=== PATIENT | female | born 1950 | race Caucasian/White ===

== ENCOUNTER 2019-04-09 13:54 | Emergency (ER) | payer OTHER ==
[~2019-04-09] VITALS: Ht 144.8 cm; Wt 77.1 kg
[2019-04-09 14:49] VITALS: BP 144/98
[2019-04-10] MEDS ORDERED: OXYBUTYNIN 5 MG5 M2 PO (16:03)
[2019-04-10] MEDS ORDERED: NYAMYC15 GM TOP (16:03)
[2019-04-10] MEDS ORDERED: NOVOLOG FL100 UNIT/M SUBQ (16:04)
[2019-04-10] MEDS ORDERED: LEVEMIR FL100 UNIT/2 SUBQ (16:04)
[2019-04-10] MEDS ORDERED: METOPROLOL TART25 MG PO (16:04)
[2019-04-10] MEDS ORDERED: FUROSEMIDE 40 M40 MG PO (16:05)
[2019-04-10] MEDS ORDERED: PEN NEEDLE1 EAC4 MC (16:05)
[2019-04-10] MEDS ORDERED: LIPITOR 40 MG T40 M1 PO (16:05)
[2019-04-10] MEDS ORDERED: NEURONTIN 300300 M1 PO (16:05)
[2019-04-10] MEDS ORDERED: GLIMEPIRIDE4 MG PO (16:05)
== END 2019-04-09 15:13 | disposition home or self-care (01) ==
LOC: ER 13:54
DX: E16.2 Hypoglycemia, unspecified (principal)

== ENCOUNTER 2019-04-10 13:20 | Inpatient (IN) | payer OTHER ==
[~2019-04-10] VITALS: Ht 147.3 cm; Wt 93.0 kg
[2019-04-10 13:33] VITALS: BP 202/68
[2019-04-10 14:18] LABS: ABSOLUTE NEUTROPHILS 2.8 thou/uL (1.4-8.2); BASOPHILS 1.4 % (0.0-2.0); EOSINOPHILS 0.1 % (0.0-3.0); HEMATOCRIT 47.6 % (37.0-47.0); HEMOGLOBIN 15.5 gm/dL (12.0-15.0); LYMPHOCYTES 19.6 % (24.0-44.0); MCH 27.5 pg (26.0-34.0); MCHC 32.5 g/dL (28.0-37.0); MCV 84.7 fL (80.0-100.0); MONOCYTES 9.8 % (1.0-8.0); PLATELET COUNT 238 thou/uL (150-400); POLYS 69.1 % (36.0-66.0); RBC 5.62 mil/uL (4.20-5.00); RDW 15.8 % (10.5-14.5)
[2019-04-10 14:29] LABS: ANION GAP 7 mmol/L (7-16); BUN 20 mg/dL (7-18); CALCIUM 8.3 mg/dL (8.5-10.1); CHLORIDE 103 mmol/L (98-107); CO2 28 mmol/L (21-32); CREATININE 0.7 mg/dL (0.6-1.0); GLUCOSE 94 mg/dL (74-106); POTASSIUM 3.7 mmol/L (3.5-5.1); SODIUM 138 mmol/L (136-145)
[2019-04-10 14:35] LABS: ALBUMIN 2.5 g/dL (3.4-5.0); DIRECT BILIRUBIN < 0.1 mg/dL (<0.1-0.2); SGOT 42 U/L (15-37); SGPT 24 U/L (30-65); TOTAL BILIRUBIN 0.7 mg/dL (<0.1-1.0); TOTAL PROTEIN 7.4 g/dL (6.4-8.2)
[2019-04-10] MEDS ORDERED: NYAMYC15 GM TOP (16:03)
[2019-04-10] MEDS ORDERED: OXYBUTYNIN 5 MG5 M2 PO (16:03)
[2019-04-10] MEDS ORDERED: LEVEMIR FL100 UNIT/2 SUBQ (16:04)
[2019-04-10] MEDS ORDERED: METOPROLOL TART25 MG PO (16:04)
[2019-04-10] MEDS ORDERED: NOVOLOG FL100 UNIT/M SUBQ (16:04)
[2019-04-10] MEDS ORDERED: NEURONTIN 300300 M1 PO (16:05)
[2019-04-10] MEDS ORDERED: PEN NEEDLE1 EAC4 MC (16:05)
[2019-04-10] MEDS ORDERED: LIPITOR 40 MG T40 M1 PO (16:05)
[2019-04-10] MEDS ORDERED: FUROSEMIDE 40 M40 MG PO (16:05)
[2019-04-10] MEDS ORDERED: GLIMEPIRIDE4 MG PO (16:05)
[2019-04-10 17:28] VITALS: BP 198/99
[2019-04-10 18:16] VITALS: BP 160/72
--- NOTE | 2019-04-10 19:00 | NUR ---
PATIENT ADMITTED FROM ER WITH HYPOGLYCEMIA FROM HOME. PATIENT IS TOTALLY BLIND. ASSIST X 1 TO THE BR. VITAL SIGNS DONE, BOX LUNCH MEAL GIVEN UPON ARRIVAL TO THE UNIT 1825. ADMISSION WILL BE DONE BY MIKE/RN.
[2019-04-10 19:33] VITALS: BP 165/78
--- NOTE | 2019-04-10 23:48 | NUR ---
ASSUMED CARE OF PT AT 1900HRS. PT IS AOX4 AND LETS NEEDS BE KNOWN. PT IS BLIND AND FALL PRECAUTION IS IN PLACE. PT WAS ORIENTED TO THE UNIT AND HER ROOM. PT WAS ABLE TO ANSWER ADMISSION RELATED QUESTIONS. PT IS ABLE TO GET UP AND USE THE BATHROOM WITH ONE ASSIST. PT HAD ELEVATED BP BUT OTHERWISE VSS. WILL CONTINUE TO [facility].
[2019-04-11 06:09] LABS: GLYCOHEMOGLOBIN (HGB A1C) 8.3 % (4.8-5.6)
[2019-04-11 07:16] VITALS: BP 142/77
--- NOTE | 2019-04-11 07:26 | NUR ---
PATIENT ADMITTED FROM ER WITH HYPOGLYCLEMIA FORM HME. PATIENT IS BLIND, AND NEEDS ASSIST X 1. PATIENT HAS RIGHT HAND IV. PATIENT VS DONE, AND GIVEN BOX LUNCH MEAL WHEN SHE ARRIVED ON THE UNIT AT 1825. ADMISSION WILL BE DONE BY MIKE/RN.
[2019-04-11 15:38] VITALS: BP 116/55
--- NOTE | 2019-04-11 19:32 | NUR ---
ASSUMED CARE OF PATIENT AT 0715, PATIENT ALERT AND ORIENTED, UP WITH 1 ASSIST TO BATHROOM, PATIENT IS BLIND. PATIENT C/O GENERALIZED PAIN, TYLENOL 650 MG PO GIVEN. PATIENT HAS RIGHT HAND IV, FLUSHED WITH NS AT REMAINS PATENT. DR IVEY STARTED PATIENT ON METFORMIN TO HELP CONTROL BLOOD SUGARS, LAST BS 175, SHE RECEIVED 3 UNITS. PATIENT HAS HAD 3 LOOSE STOOLS, THIS RN PLACED CALL TO DR IVEY, NO RETURN CALL, PATIENT DOES WEARS BRIEFS. WILL CONTINUE TO MONITOR.
[2019-04-11 20:00] VITALS: BP 128/68
--- NOTE | 2019-04-12 02:35 | NUR ---
PATIENT ALERT AND ORIENTED X4. UP TO BATHROOM WITH ONE ASSIST. DENIES PAIN. NO 02NC AT THIS TIME. SITTING IN CHAIR AT SHIFT CHANGE. COOPERATIVE WITH CARE. EDEMA TO BILATERAL LOWER LEGS WITH SOME REDNESS. ONE STOOL NOTED LOOSE AND MEDIUM. BLOOD SUGAR AT 2100 WAS 58. GIVEN APPLE JUICE X2 AND RECHECKED, BS UP TO 103. METFORMIN HELD. PATIENT IS BLIND SHE NEEDS SPECIFIC DIRECTIONS AND DOES WELL WITH TRANSFER. DIFFICULTY SLEEPING TONIGHT, UP AND DOWN. RESTING AT TIME OF NOTE WILL MONITOR.
[2019-04-12 07:27] VITALS: BP 134/51
[2019-04-12] MEDS ORDERED: GLUCOPHAGE500 MG PO (09:08)
[2019-04-12] MEDS ORDERED: COZAAR 50 MG TA50 M1 PO (09:08)
--- NOTE | 2019-04-12 18:37 | NUR ---
ASSUMED PATIENT CARE AT 0700. PATIENT IS AOX4 AND UP WITH 1 ASSIST WITHOUT ANY ISSUES. PATIENT DENIES PAIN. PATIENT WAS UP TO THE [facility] WHEN NEEDED BUT DID HAVE ONE ACCIDENT WITH HER BM. PATIENT TOOK A SHOWER AND IS READY FOR D/C. PATIENT IS WAITING FOR HER RIDE TO GET HERE. PATIENT DIDN'T HAVE MUCH OF AN APPETITE FOR LUNCH OR DINNER BUT DID EAT SMALL SNACKS DURING BOTH. FALL PRECAUTIONS ARE IN PLACE, CALL LIGHT WITHIN REACH. PATIENT IS GOOD ABOUT CALLING FOR HELP WHEN NEEDED.
--- NOTE | 2019-04-12 19:52 | NUR ---
PATIENT WAS D/C WITH HER NURSE LAKESHA DONATO. DR. IVEY VOICED TO THE PATIENT WITH THIS NURSE PRESENT THAT SHE COULD IN FACT GO HOME TODAY WITH HER NEW RX. D/C INSTRUCTIONS HAVE BEEN EXPLAINED TO THE HH NURSE AND THE PATIENT. LAKESHA DONATO WITH [employer] AT [phone].
--- NOTE | 2019-04-12 19:57 | NUR ---
I AGREE WITH ASSESSMENT OF MERRILL GRIFFITH LPN.
== END 2019-04-12 19:58 | disposition home health service (06) | DRG 918 ==
LOC: ER 13:20 → EROBS 15:56 → 4N 18:20
PROVIDERS: Emergency Medicine; ADMIT Hospitalist
DX: T38.3X1A Poisoning by insulin and oral hypoglycemic [antidiabetic] drugs, accidental (unintentional), initial encounter (principal); E11.649 Type 2 diabetes mellitus with hypoglycemia without coma; G89.29 Other chronic pain; M54.9 Dorsalgia, unspecified; F17.210 Nicotine dependence, cigarettes, uncomplicated; I10 Essential (primary) hypertension; L68.0 Hirsutism; Y92.89 Other specified places as the place of occurrence of the external cause; Z79.899 Other long term (current) drug therapy; Z79.4 Long term (current) use of insulin; Z88.6 Allergy status to analgesic agent; Z79.84 Long term (current) use of oral hypoglycemic drugs
CPT/HCPCS: 10091

== ENCOUNTER 2019-07-04 13:04 | Inpatient (IN) | payer OTHER ==
[~2019-07-04] VITALS: Ht 144.8 cm; Wt 79.7 kg
--- NOTE | ~2019-07-04 | EMS ---
[address] [address] EMS Patient Care Report Name: ELTON PAGAN Room #: 205-P ADM IN M.R.#: [id number] Admission: 07/04/19 Attend Phys: Edmundo Medrano MD Discharge: Date of : 51 Report #: [id number] THIS REPORT FOR: //name// Report Transmitted: 07/06/2019 12:58 EMS Care Summary [place], [place]/[facility] Incident [id number] @ 07/04/2019 12:23 Incident Location [address] Patient ELTON PAGAN Female, 68 Years 1950 Patient Address [address] [place] [address] Patient History Chronic Obstructive Pulmonary Disease (COPD),Diabetes,Hypertension (HTN), Patient Allergies Aspirin, Patient Medications Insulin, Chief Complaint MULTIPLE FALLS, TREMORS Disposition Transported No Lights/[place] Dispatch Reason Falls Transported To [facility] Narrative UPON ARRIVAL PT SUPINE ON THE GROUND CONSCIOUS AND ALERT. FRIEND STATES PT HAD FALLEN MULTIPLE TIMES IN THE PAST HOUR AND HAS TROUBLE SITTING UP STRAIGHT. PT DENIES ANY INJURIES FROM FALLS. PT HAS ALSO BEEN HAVING TREMORS IN THE [address] [address] EMS Patient Care Report Name: ELTON PAGAN Room #: 205-P ADM IN [place].#: [id number] Admission: 07/04/19 Attend Phys: Edmundo Medrano MD Discharge: Date of : 51 Report #: [id number] EXTREMITIES WHICH IS ABNORMAL. PT TRANSPORTED TO [facility]. Initial Vitals @12:55P: 111,BP: 102/62,CO: 2,SpO2: 88, @12:48P: 110,CO: 6,SpO2: 89, @12:37P: 144,R: 24,BP: 108/66,Pain: 0/10,GCS: 15,Glucose: 202,SpO2: 90,Revised Trauma: 12, Assessments @12:35MENTAL:Person Oriented,Time Oriented,Event Oriented,Place Oriented,SKIN:HEENT:Eyes: Left: Blind,Eyes: Right: Blind,Head/Face: No Abnormalities,LUNG SOUNDS:General: No Abnormalities,ABDOMEN:General: No Abnormalities,PELVIS//GI:No Abnormalities,EXTREMITIES:Left Arm: No Abnormalities,Right Arm: No Abnormalities,Left Leg: No Abnormalities,Right Leg: No Abnormalities,PULSE:Radial: 2+ Normal,NEURO:No Abnormalities, Impression Generalized Weakness Procedures @12:35ALS AssessmentResponse: UnchangedSucceeded@12:453-Lead ECGResponse: UnchangedSucceeded Timeline 12:22,Call Received 12:22,Dispatch Notified 12:23,Dispatched 12:24,En Route 12:28,On Scene 12:32,At Patient 12:35,ALS Assessment,Response: UnchangedSucceeded, 12:37,BP: 108/66 M,PULSE: 144,RR: 24 R,SPO2: 90 Ox,ETCO2: ,B,PAIN: 0,GCS: 15, 12:45,3-Lead ECG,Response: UnchangedSucceeded, 12:48,BP: / M,PULSE: 110,RR: R,SPO2: 89 Ox,ETCO2: ,BG: ,PAIN: ,GCS: , 12:48,Depart Scene 12:55,BP: 102/62 M,PULSE: 111,RR: R,SPO2: 88 Ox,ETCO2: ,BG: ,PAIN: ,GCS: , 12:58,At Destination 13:15,Call Closed Disclaimer v1.1 Copyright 2020 [employer] This EMS Care Summary contains data elements from the applicable legal record (which may be displayed differently). It is designed to provide pertinent information for the following purposes: continuity of care, clinical quality, and state data reporting. The complete [place] [address] EMS Patient Care Report Name: ELTON PAGAN Room #: 205-P ADM IN ..#: [id number] Admission: 07/04/19 Attend Phys: Edmundo Medrano MD Discharge: Date of : 51 Report #: [id number] and administrators of the receiving hospital in [facility]'s Patient Tracker. All data is provided "as is."
[~2019-07-04 13:04] MED LIST: COZAAR 50 MG TA50 M1 PO; FUROSEMIDE 40 M40 MG PO; GLIMEPIRIDE4 MG PO; GLUCOPHAGE500 MG PO; LEVEMIR FL100 UNIT/2 SUBQ; LIPITOR 40 MG T40 M1 PO; METOPROLOL TART25 MG PO; NEURONTIN 300300 M1 PO; NOVOLOG FL100 UNIT/M SUBQ; NYAMYC15 GM TOP; OXYBUTYNIN 5 MG5 M2 PO; PEN NEEDLE1 EAC4 MC
[2019-07-04 13:05] VITALS: BP 144/79
[2019-07-04 13:45] LABS: ABSOLUTE NEUTROPHILS 5.4 thou/uL (1.4-8.2); BASOPHILS 0.2 % (0.0-2.0); EOSINOPHILS 0.6 % (0.0-3.0); HEMATOCRIT 48.7 % (37.0-47.0); HEMOGLOBIN 16.2 gm/dL (12.0-15.0); LYMPHOCYTES 4.5 % (24.0-44.0); MCH 28.7 pg (26.0-34.0); MCHC 33.3 g/dL (28.0-37.0); MCV 86.4 fL (80.0-100.0); MONOCYTES 7.2 % (1.0-8.0); PLATELET COUNT 180 thou/uL (150-400); POLYS 87.5 % (36.0-66.0); RBC 5.64 mil/uL (4.20-5.00); RDW 16.9 % (10.5-14.5); WBC 6.2 thou/uL (4.0-11.0)
[2019-07-04 13:54] LABS: CALCIUM 8.6 mg/dL (8.5-10.1); CREATININE 1.3 mg/dL (0.6-1.0); POTASSIUM 3.8 mmol/L (3.5-5.1)
[2019-07-04 14:04] LABS: ALBUMIN 3.2 g/dL (3.4-5.0); TOTAL BILIRUBIN 1.2 mg/dL (<0.1-1.0); TOTAL PROTEIN 8.2 g/dL (6.4-8.2)
[2019-07-04 14:06] LABS: TROPONIN-I 3.09 ng/mL (<0.06)
[2019-07-04 14:55] LABS: URINE BILIRUBIN 1+ (Negative); URINE BLOOD 3+ (Negative); URINE CLARITY CLEAR; URINE COLOR YELLOW; URINE GLUCOSE-RANDOM* TRACE (Negative); URINE KETONES NEGATIVE (Negative); URINE LEUKOCYTES-REFLEX NEGATIVE (Negative); URINE NITRITE-REFLEX NEGATIVE (Negative); URINE PROTEIN (DIPSTICK) 3+ (Negative); URINE SPECIFIC GRAVITY >= 1.030 (1.005-1.035); URINE UROBILINOGEN 0.2 E.U./dl (0.2-1.0)
[2019-07-04 14:57] LABS: ICTOTEST (BILI CONFIRMATORY) Positive (Negative)
[2019-07-04 15:05] LABS: AMORPHOUS URATES Moderate /LPF (None Seen); SQUAMOUS 4-10 Moderate /LPF (0-3)
[2019-07-04 15:22] LABS: BACTERIA-REFLEX 1-9 Few /HPF (None Seen); HYALINE CASTS 0-3 Few /LPF (None Seen); URINE RBC 3-10 Few /HPF (0-2); URINE WBC-REFLEX 0-5 Rare /HPF (0-5)
[2019-07-04 15:46] VITALS: BP 134/62
[2019-07-04 16:04] VITALS: BP 134/62
[2019-07-04 17:06] VITALS: BP 144/75
--- NOTE | 2019-07-04 18:15 | NUR ---
PT ADMITTED TO [facility] AT 1700. PT ALERT AND ORIENTED X4, FORGETFUL. PT IS BLIND IN BOTH EYES, HARD OR HEARING. DENIES ANY CHEST PAIN, NAUSEA AND VOMITING. GENERAL ASSEMBLER SHOWS SINUS RHYTHM, HR IN 90'S. PT IS ON 2L OF NASAL CANNULA. COMPLAINS OF TOLERABLE SHOULDER PAIN. FOR HAS A CHAIREZ, URINE IS CORA COLOR AND CATHETER IS PATENT AND SECURED. PT GAVE A VERBAL CONSENT FOR FALL/CALL LIGHT PAPERWORK. PT DIDNT REMEMBER ALL THE MEDICATIONS SHE TAKES AND STATES HER HOMEHEALTH NURSE WOULD KNOW. THIS RN CALL LAKESHA FROM [facility], VERIFIED PT MEDICATIONS, PAST MEDICAL HISTORY AND ALLERGIES WITH LAKESHA. PT DENIES ANY NEEDS AT THE MOMENT. CALL LIGHT IN REACH. MED AT LOWEST LEVELK WITH ALARM ON.
[2019-07-04 19:50] VITALS: BP 115/60
--- NOTE | 2019-07-04 20:55 | NUR ---
Pt is alert to person and situation. Reoriented to place and time and date. Her pupils are opaque , white and nonvisible. She was unable to open her eyes herself without assistance of nurse. SR with PACs on the monitor. Lungs are unlabored sats 96% on 2LNC. Diminished at bases. Cellulitis noted LEs. No scds due to cellulitis. Moisture barrier applied to buttocks, No wounds noted. turning pt q 2 hrs. No s/s distress presently. No c/o pain.
--- NOTE | 2019-07-04 21:04 | NUR ---
Pt refused to sign admit consent and fall precautions due to she did not have her blind reader. Reinstructed on fall precautions. Bed alarm is on. Bed is in low locked position. Call light in reach, Checking on pt q 1 hr.
[2019-07-04 23:21] VITALS: BP 106/56
[2019-07-05 04:23] VITALS: BP 130/74
--- NOTE | 2019-07-05 06:41 | NUR ---
Pt progressing towards d/c goals. No c/o chest pain last night. No SOA. LEs continue to have 1+ edema and are red christ. with cellulitis. Lasix 40 mg iv pushed this am as ordered. No s/s distress. Pt seems more alert this am. Answers appropriately and is now opening her eyes just slightly spontaneously without nurses help. No s/s distress.
[2019-07-05 07:37] LABS: HEMATOCRIT 40.1 % (37.0-47.0); MCH 28.6 pg (26.0-34.0); MCHC 33.7 g/dL (28.0-37.0); MCV 85.1 fL (80.0-100.0); RBC 4.71 mil/uL (4.20-5.00); RDW 16.7 % (10.5-14.5); WBC 5.1 thou/uL (4.0-11.0)
[2019-07-05 07:49] LABS: HEMOGLOBIN 13.5 gm/dL (12.0-15.0)
[2019-07-05 07:54] LABS: CALCIUM 7.8 mg/dL (8.5-10.1); POTASSIUM 3.3 mmol/L (3.5-5.1)
[2019-07-05 07:58] LABS: TROPONIN-I 1.05 ng/mL (<0.06)
[2019-07-05 08:33] VITALS: BP 153/79
--- NOTE | 2019-07-05 10:19 | NUR ---
3W RN CALLED TO INFORM THAT THIS PT COVID-19 SWAB IS NEGATIVE. THIS RN SPOKE WITH SEFERINO SMITH ARCHITECT. REPORTED YESTERDAY CXR RESULTS, PT ON ROOM AIR (OFF OXYGEN SINCE BREAKFAST TIME), DENIES SOA AND FEVER NOTED YESTER DAY AT 1706 WHICH WAS 100.9 THEN 99.8 AT 1950. PT THEN NOTED TO BE AFREBRILE SINCE THAT TIME. PER SEFERINO SMITH, IF SECOND COVID-19 SWAB IS NEGATIVE PT CAN COME OUT OF ISOLATION. DR. ROMERO INFORMED ( HE IS SPEAKING WITH DR. ARCHULETA). DR. ROMERO WANTS PT MOVED TO CCU IF SECOND SWAB IS NEGATIVE. JESSY RN INFORMED TO REPEAT SWAB NOW PER SEFERINO.
[2019-07-05 12:13] VITALS: BP 136/83
--- NOTE | 2019-07-05 16:12 | NUR ---
PATIENT TRANSFERED AT THIS TIME TO . SHE IS [employer]. REMAINS ON ROOM AIR AND SATS ARE ABOVE 90%. ALERT ORIENTED X4. PLEASANT CARE. ORDERS TO LEAVE CHAIREZ FOR ACCURATE I&O.
--- NOTE | 2019-07-05 17:29 | NUR ---
PT. ARRIVED AT FLOOR AFTER 1600; PT. AWAKE; ALERT TO PERSON, PLACE & TIME; NO C/O PAIN; EDUCATED ABOUT CALL LIGHT CONTROLS; EDUCATED ABOUT CALLING BEFORE GETTING UP FROM BED; ST. UNDERSTANDING; SR ON THE MONITOR; REFUSED INSULIN AT DINNER TIME; ST. "I DO NOT WANT TO MESS UP ALL THE WORK THE DOCTORS HAVE DONE"; EDUCATED ABOUT IT; ST. UNDERSTANDING; REFUSED IT; PT. ABLE TO EAT DINNER AFTER SET IT UP; ASSESSMENT CHARGED; FOLLOWING POC; WILL PASS ON REPORT;
[2019-07-05 19:59] VITALS: BP 90/34
[2019-07-06] VITALS (8 sets, daily range): BP systolic 107–163; BP diastolic 55–91
--- NOTE | 2019-07-06 01:41 | NUR ---
PT LYING IN BED. DENIES PAIN. RESTING COMFORTABLY. NO NEED VOICED. CALL LIGHT WITHIN REACH. FREQUENT OBSERVATION.
[2019-07-06 04:44] LABS: CALCIUM 7.9 mg/dL (8.5-10.1); CREATININE 0.8 mg/dL (0.6-1.0)
[2019-07-06 07:47] LABS: CHOLESTEROL 94 mg/dL (<200); HDL CHOLESTEROL 29 mg/dL (>40); LDL CHOLESTEROL 36 mg/dL (<100); TC:HDL 3.2 Ratio (Not establshd); TRIGLYCERIDE 146 mg/dL (<150); VLDL 29 mg/dL (<40)
--- NOTE | 2019-07-06 08:01 | EKG ---
[facility] [place] [place] [address] ELECTROCARDIOGRAM REPORT Name: ELTON PAGAN Room #: 205-P ADM IN M.R.#: [id number] Admission: 07/04/19 Attend Phys: Edmundo Medrano MD Discharge: Date of : 51 Report #: [id number] THIS REPORT FOR: cc: PETER - No family physician/PCP FAM - No family physician/PCP Brian Stark MD [facility] ~ THIS REPORT FOR: //name// [facility] ED Test Date: 2019-07-04 Test Time: 13:49:34 Pat Name: ELTON PAGAN Department: Room: [facility][note 3] Gender: F Care Partner: [facility] : 1950 Requested By: Elana Lowry Order Number: [id number] MD: Brian Stark Measurements Intervals Dexter Rate: 103 P: -20 RI: 94 QRS: 80 QRSD: 79 T: -74 QT: 379 QTc: 496 Interpretive Statements Sinus tachycardia Atrial premature complexes Nonspecific ST and T wave abnormality Borderline prolonged QT interval Baseline wander in lead(s) V1,V3,V4,V5,V6 No previous ECG available for comparison Electronically Signed On 07-06-2019 7:59:25 CDT by Brian Stark [email or web address] <ELECTRONICALLY SIGNED> By: Brian Stark MD, FACC 07/06/19 0759 1349 1349 Brian Stark MD, FAC /EPI
--- NOTE | 2019-07-06 12:11 | NUR ---
spoke with patient via phone. Patient admits with fall at home and CHF. She resides in independent apt alone. She is blind and hx of smoking. She has [facility] caregivers 5 days a week M-F 3-4 hours a day. Caitlin Wynn [phone] is primary caregiver. Ms Wynn works for [employer]. She assists with laundry and grocery shopping. Patient uses cane for ambulation and elevator in building. She cannot at this time recall her PCP. Therapy evals in process. She does not want to go to skilled facility. she does not want to "move around" places. She is hopeful to dc home but agreeable to determine if 5N candidate.
--- NOTE | 2019-07-06 14:16 | 2DMMODE ---
[facility] [place] [address] [address] 2 D/M-MODE ECHOCARDIOGRAM Name: ELTON PAGAN Room #: 205-P ADM IN M.R.#: [id number] Admission: 07/04/19 Attend Phys: Edmundo Medrano MD Discharge: Date of : 51 Report #: [id number] THIS REPORT FOR: cc: PETER - No family physician/PCP PETER - No family physician/PCP Brian Stark MD [facility] ~ APPROVED REPORT Study performed: 07/06/2019 12:09:50 EXAM: Comprehensive 2D, Doppler, and color-flow Echocardiogram Patient Location: Bedside Room #: 205 Status: routine BSA: 1.67 HR: 82 bpm BP: 119/89 mmHg Other Information Study Quality: Adequate Indications Diabetes Elevated Troponin Hypertension/HDD 2D Dimensions RVDd: 40.07 mm IVSd: 8.97 (7-11mm) LVOT Diam: 17.73 (18-24mm) LVDd: 36.80 mm PWd: 7.79 (7-11mm) LVDs: 27.43 (25-40mm) Aortic Root: 26.30 mm IVC: 21.00 mm Volumes Left Atrial Volume (Systole) Single Plane 4CH: 56.21 mL Single Plane 2CH: 32.59 mL LA ESV Index: 28.00 mL/m2 Aortic Valve AoV Peak Tom.: 1.10 m/s AO Peak Gr.: 4.86 mmHg LVOT Max P.29 mmHg LVOT Max V: 0.76 m/s RUIZ Vmax: 1.[address] [facility] [address] [address] 2 D/M-MODE ECHOCARDIOGRAM Name: ELTON PAGAN Room #: 205-P [facility] IN M.R.#: [id number] Admission: 07/04/19 Attend Phys: Edmundo Medrano MD Discharge: Date of : 51 Report #: [id number] Pulmonary Valve PV Peak Tom.: 0.81 m/s PV Peak Gr.: 2.62 mmHg Tricuspid Valve TR Peak Tom.: 3.48 m/s TR Peak Gr.: 49.34 mmHg PA Pressure: 59.00 mmHg Left Ventricle The left ventricle is normal size. There is normal LV segmental wall motion. There is normal left ventricular wall thickness. The left ventricular systolic function is normal. The left ventricular ejection fraction is within the normal range. LVEF is 60-65%. This study is not technically sufficient to allow evaluation of the LV diastolic function. Right Ventricle Right ventricle is dilated. Right ventricle is hypokinetic. Atria The left atrium size is normal. Right atrium is dilated. Aortic Valve The aortic valve is sclerotic. No aortic regurgitation is present. There is no aortic valvular stenosis. Mitral Valve The mitral valve is normal in structure. Trace mitral regurgitation. No evidence of mitral valve stenosis. Tricuspid Valve The tricuspid valve is normal in structure. There is mild tricuspid regurgitation. Estimated PAP 60 mmHg. Pulmonic Valve The pulmonary valve is normal in structure. There is no pulmonic valvular regurgitation. Great Vessels The aortic root is normal in size. IVC is dilated and collapses <50% with inspiration. Pericardium There is no pericardial effusion. [facility] [address] [place] [address] 2 D/M-MODE ECHOCARDIOGRAM Name: ELTON PAGAN Room #: [address] [place] [address] IN [facility]#: [id number] Admission: 07/04/19 Attend Phys: Edmundo Medrano MD Discharge: Date of : 51 Report #: [id number] <Conclusion> The left ventricular systolic function is normal. There is normal LV segmental wall motion. LVEF is 60-65%. Right ventricle and right atrium are dilated. RV hypokinesis. The aortic valve is sclerotic. No aortic regurgitation or stenosis The mitral valve is normal in structure. Trace mitral regurgitation. There is mild tricuspid regurgitation. Estimated pulmonary artery pressure of 60 mmHg. There is no pericardial effusion. <ELECTRONICALLY SIGNED> By: Brian Stark MD, [facility] 07/06/19 1414 1414 1414 Brian Stark MD, FACC /INF
--- NOTE | 2019-07-06 18:41 | NUR ---
PT CARE ASSUMED AT 0700. ASSESSMENTS CHARTED. MEDICATIONS CHARTED. POSSIBLE CATH TOMORROW, HOLD EXOXAPRIN IN AM PER NICK. NPO AFTER 0000 07/06. PT IN CHAIR 6 HOURS, TOLERATED WELL. PT IS BLIND.
[2019-07-07] VITALS (16 sets, daily range): BP systolic 102–154; BP diastolic 51–87
--- NOTE | 2019-07-07 03:14 | NUR ---
ASSUMED PT CARE AT AROUND 1900, PT IS AWAKE, ALERT AND ORIENTEDX4, PT DENIES SOB OR CHEST PAIN, SR/SA ON THE MONITOR, C/O PAIN IN HER ARMS, PAIN MEDICATION GIVEN, NO FURTHER COMPLAINS, ELECTROLYTES REPLACED PER PROTOCOL WILL RECHECK IN THE AM, PT IS BEEN NPO AFTER MIDNIGHT, CONSENT FORM VERBALLY SIGNED FOR HEARTH CATH IN THE AM, RESTING IN BED, NO DISTRESS NOTED AT THIS TIME, WILL CONTINUE TO MONITOR
[2019-07-07 06:59] LABS: CALCIUM 8.1 mg/dL (8.5-10.1); CREATININE 0.8 mg/dL (0.6-1.0); MAGNESIUM 1.6 mg/dL (1.8-2.4); POTASSIUM 3.8 mmol/L (3.5-5.1)
--- NOTE | 2019-07-07 07:49 | EKG ---
[facility] [place] [address] [address] ELECTROCARDIOGRAM REPORT Name: ELTON PAGAN Room #: 205- ADM IN M.R.#: [id number] Admission: 07/04/19 Attend Phys: Edmundo Medrano MD Discharge: Date of : 51 Report #: [id number] THIS REPORT FOR: cc: PETER - No family physician/PCP PETER - No family physician/PCP Brian Stark MD [facility] ~ THIS REPORT FOR: //name// [facility] Test Date: 2019-07-06 Test Time: 16:32:03 Pat Name: ELTON PAGAN Department: Room: 205 Gender: F Director Of Recruitment And Admissions: Aparna RIVAS : 1950 Requested By: Shelbi Dumont Order Number: [id number] MD: Brian Stark Measurements Intervals [place]on Rate: 115 P: UT: QRS: 89 QRSD: 82 T: -82 QT: 324 QTc: 448 Interpretive Statements Atrial fibrillation Ventricular premature complex Borderline right axis deviation Nonspecific ST and T wave abnormality Compared to ECG 07/04/2019 13:49:34 Ventricular premature complex(es) now present Atrial fibrillation is new Electronically Signed On 07-07-2019 7:47:17 CDT by Brian Stark [email or web address] <ELECTRONICALLY SIGNED> By: Brian Stark MD, FAC 07/07/19 0747 1632 1632 Brian Stark MD, FAC /EPI
[2019-07-07 07:56] LABS: APTT 27.3 Seconds (24.5-32.8); PROTIME 10.7 Seconds (9.3-11.4)
--- NOTE | 2019-07-07 16:46 | NUR ---
Patient possible candidate for 5N. Discussed with patient and she wants to think about possibly 5N. She reports she has 4 sisters and 2 brothers but does not talk to them on regular basis. She speaks to her sister in law from time to time. She reports mostly coordinate care with caregiver Terrish. Patient reports she did have a son he in Nov. He has MS. Charlest to follow
--- NOTE | 2019-07-07 17:27 | CATHLAB ---
[facility] [place] [address] INVASIVE PROCEDURE REPORT Name: ELTON PAGAN Room #: 205-P ADM IN M.R.#: [id number] Admission: 07/04/19 Attend Phys: Edmundo Medrano MD Discharge: Date of : 51 Report #: [id number] THIS REPORT FOR: cc: FAM - No family physician/PCP FAM - No family physician/PCP Richar Alfaro MD [facility] ~ APPROVED REPORT Study performed: 07/07/2019 09:35:17 Patient Details Patient Status: In-Patient Room #: The patient is a 68 year-old female Event Personnel Matt Aguila RN, Richar Alfaro Certified Orthotist/Pedorthist, Jaye Sanders RTR, SAIDA Scrub, Jocelin Ozuna Monitor Procedures Performed Art Access - R femoral artery* Christopher Access - R femoral vein Right and Left Heart Cath w/or w/o Coronarie [id number] [facility] Aortogram Abdominal Peripheral Angio 615143 Hemostasis w/ Mynx 93231 Initial Mod Sed Same Phys/QHP Gr5y [id number] 31074 Mod Sed Same Phys/QHP Ea 338010 Indication Chest pain Procedure Narrative The Right Groin^ was infiltrated with subcutaneous anesthesia. A Right Heart Catheterization was performed with a 7 Fr. [place] catheter and pressure were recorded. Cardiac outputs were obtained by the Thermal Dilution method. A PINNACLE 6FR Sheath #[id number] sheath was inserted into the RFA 6F^. Coronary angiography was performed using coronary diagnostic catheters. The right coronary system was accessed and visualized with a JR4 catheter. The left coronary system was accessed and visualized with a JL3.5 catheter. The left ventricle was accessed and visualized with a STR PIG catheter. Left ventriculogram was performed in 30 degree projection. The patient tolerated the procedure well and there were no complications associated with the procedure. There was no hematoma. Held manual pressure on the venous sheath. Intraoperative Conscious Sedation [facility] [place] [address] INVASIVE PROCEDURE REPORT Name: ELTON PAGAN Room #: 205-P [facility] IN ..#: [id number] Admission: 07/04/19 Attend Phys: Edmundo Medrano MD Discharge: Date of : 51 Report #: [id number] Sedation start time: 1034 Case end Time: 1130 Fentanyl 100 mcg Versed 2 mg Fluoro Time: 4.10 minutes Dose: DAP 3849.99 cGycm2 385 mGy Contrast Type and Amount: Omnipaque 85 ml Hemodynamics The right atrial mean pressure is 17 mmHg. The right ventricular pressure is 92/9 mmHg. The pulmonary artery pressure is 92/34 mmHg with a mean of 58 mmHg. The mean pulmonary capillary wedge pressure is 46 mmHg. The aortic pressure is 187/83 mmHg with a mean of 98 mmHg. The left ventricular end diastolic pressure is 34 mmHg. The cardiac output using thermo method is 2.80 L/min. The cardiac index using thermo method is 1.56 L/min/m2. Conclusion 1. Successful right heart catheterization with cardiac output by thermodilution. Severe pulmonary hypertension noted see above hemodynamics. #2 left main free of disease giving rise to LAD and circumflex #3 LAD with mild diffuse irregularities and proximal calcification. There is a proximal mid vessel lesion of 50 to 60% and a small distal vessel. #4 circumflex OM nondominant with mild irregularities and distal attenuation and disease. No occlusive disease #5 dominant right coronary with an eccentric 3040% proximal lesion and a diffusely diseased distal vessel. #6 normal left jugular size and systolic function EF 60% #7 normal abdominal aorta without any significant aneurysm or stenosis. Recommendations and plan: Continue aggressive risk factor modification. Aggressive diuresis. Consider pulmonary vasodilator therapy pulmonary consult. Discussed with primary care. <ELECTRONICALLY SIGNED> By: Richar Alfaro MD, FACC 07/07/19 1725 24 24 Richar Alfaro MD, FACC /INF
[2019-07-07 19:17] LABS: BE(vivo) 5.8 mmol/L (-2 to +3); HCO3 31.2 mmol/L (22.0-26.0); PCO2 47.8 mmHg (35.0-45.0); PO2 63.6 mmHg (80.0-100.0); pH 7.433 (7.360-7.450); sO2 92.7 % (92.0-98.0)
--- NOTE | 2019-07-07 19:48 | NUR ---
PT CARE ASSUMED AT 0700. ASSESSMENTS CHARTED. MEDICATIONS CHARTED. PT RETURNED FROM CATH AT 1130., RT GROIN MYNX CLOSURE, NO INTERVENTIONS. PULMONARY CONSULT CALLED IN. BEDREST COMPLETE AT 1430.
[2019-07-08] VITALS (7 sets, daily range): BP systolic 101–136; BP diastolic 53–72
--- NOTE | 2019-07-08 04:28 | NUR ---
ASSUMED PT CARE AT 1900, PT IS AWAKE, ALERT AND ORIENTEDX4, SR/SB ON THE MONITOR, VSS, C/O PAIN ON HER BACK, MEDICATED PRN, GROIN SITE CDI, O2SAT STABLE ON ROOM AIR, REMAINED STABLE THROUGH THE NIGHT, NI DISTRESS NOTED, WILL CONTINUE TO MONITOR
[2019-07-08 05:16] LABS: CALCIUM 8.3 mg/dL (8.5-10.1); CREATININE 0.8 mg/dL (0.6-1.0); POTASSIUM 3.7 mmol/L (3.5-5.1); TROPONIN-I 0.21 ng/mL (<0.06)
--- NOTE | 2019-07-08 08:38 | NUR ---
ASSUMED CARE OF PT AT SHIFT CHANGE, A&0X4, AMB W/CLOSE SBA AND WALKER/GAIT, TWO IV'S, FLUSHED. SEE SEPARATE INTERVENTIONS FOR ASSESSMENTS. PHONE CALL FROM [facility] RE: VQ SCAN AND PE PROTOCOL. DR. JEWELL MO'ED PER MARTIN AT OFFICE; ORIGINALLY ASKED FOR DR. KIRKPATRICK; MAG LOW THIS A.M. WILL GIVE PO AND ENTER LAB. R GROIN SITE CDI NO FIRMNESS. SHOWED HER HOW TO FEEL THE CALL LIGHT'S LARGER END IN COMPARISON TO LOWER END SO SHE CAN CALL FOR NEEDS. SHE DOES RETURN DEMO. GOOD APPETITE, FOOD SET UP. APPEARS IN [employer].
--- NOTE | 2019-07-08 08:43 | NUR ---
PATIENT INFORMATION REVIEWED BY PIA NIELSEN NP WITH DR. MANN ON 07/07/19. PATIENT IS AN APPROPRIATE CANDIDATE FOR ACUTE REHAB STAY. BED AVAILABLE THIS DATE, 07/08/19, IF PATIENT IS MEDICALLY STABLE FOR REHAB. ORNAMENTAL METAL ERECTOR INFORMED OF ACCEPTANCE 07/07/19. THANK YOU FOR THIS REFERAL.
--- NOTE | 2019-07-08 16:47 | NUR ---
Patient 5N candidate but she adamently wants to return home. She is agreeable to HH and no preference for HH agency. Referral to [facility]. She reports she has caregiver who is very helpful and she strongly wants to return home.
--- NOTE | 2019-07-08 17:05 | NUR ---
FAXED REFERRAL TO [facility] SPOKE WITH CELENA IN INTAKE SHE RECEIVED REFERRAL AND WOULD BE ABLE TO ACCEPT BUT PT IS CURRENT WITH [facility] WILL F/U WITH [facility] IN THE AM. DP TO FOLLOW.
[2019-07-09] VITALS (7 sets, daily range): BP systolic 116–132; BP diastolic 60–78
--- NOTE | 2019-07-09 05:08 | NUR ---
ASSUMED PATIENT CARE AT 1845. VITAL SIGNS STABLE WITH PATIENT HAVING NO COMPLAINTS OF NAUSEA. PATIENT DID COMPLAIN OF PAIN IN BACK WHICH WAS TREATED APPROPRIATELY THROUGH MEDICATION AND REPOSITIONING. BREATHING STABLE ON ROOM AIR EVIDENCED BY ASSESSMENT AND SPOT OXYGENATION CHECKS. CONTINUE PLAN OF CARE.
--- NOTE | 2019-07-09 07:44 | NUR ---
ASSUMED CARE OF PT AT SHIFT CHANGE, KYLE, IS NOT IMPULSIVE. REPORT THAT SHE MENTIONED TO PRINCIPAL CLOUD ARCHITECT SHE DID NOT WANT TO DO REHAB BUT ASKED IF SHE COULD GO HOME WITH HH. WILL COMM W/CM AN FYI. SHE IS A&OX4, SLIGHTLY FORGETFUL. SEE SEPARATE INTERVENTIONS FOR ASSSESSMENTS, WILL CONTINUE TO MONITOR. BLIND SO ANNOUNCING APPROACH, USUAL, IMPORTANT FOR HER, IF SHE HEARS SOMEONE IN THE [place] SHE CALLS OUT '[facility]', FRANCISCO HEARING.
[2019-07-09 09:04] LABS: CALCIUM 8.5 mg/dL (8.5-10.1); CREATININE 0.8 mg/dL (0.6-1.0); POTASSIUM 3.8 mmol/L (3.5-5.1)
--- NOTE | 2019-07-09 09:17 | NUR ---
FAXED REFERRAL FOR RESUMPTION OF CARE TO [facility] SPOKE WITH INTAKE AND CONFIRMED PT ON SERVICE WITH THEM THEY WILL RESUME CARE.
--- NOTE | 2019-07-09 10:28 | NUR ---
Possible dc today with resumption of hh per [facility] and resumption of her [facility]BC[facility] homemaker services per medicaid/[facility]. Pt to coordinate with her on the latter. DC urban and regional planner to fax HH orders to [facility] and they will see her tomorrow. Pt declined 5N acute rehab option and prefer to go home with hh/cg.
[2019-07-09] MEDS ORDERED: DEMADEX20 MG PO (10:31)
--- NOTE | 2019-07-09 13:50 | NUR ---
FAXED DC ORDERS/SUMMARY TO [facility] SPOKE WITH INTAKE THEY RECEIVED ORDERS AND WILL NOTIFY PT TIME OF VISITS.
== END 2019-07-09 15:59 | disposition home health service (06) | DRG 280 ==
LOC: ER 13:04 → 2N 15:30 → EROBS 15:30 → 3W 16:30 → 2N 07-05 16:20
PROVIDERS: Internal Medicine Cardiovascular Disease; Internal Medicine Pulmonary Disease; Nurse Practitioner Adult Health; Nurse Practitioner Family; ADMIT Hospitalist
PROC: B2151ZZ Fluoroscopy of Left Heart using Low Osmolar Contrast (ICD-10-PCS; principal; 2019-07-07)
PROC: B2111ZZ Fluoroscopy of Multiple Coronary Arteries using Low Osmolar Contrast (ICD-10-PCS; principal; 2019-07-07)
PROC: 4A023N7 Measurement of Cardiac Sampling and Pressure, Left Heart, Percutaneous Approach (ICD-10-PCS; principal; 2019-07-07)
DX: I21.4 Non-ST elevation (NSTEMI) myocardial infarction (principal); J96.01 Acute respiratory failure with hypoxia; I50.33 Acute on chronic diastolic (congestive) heart failure; N17.0 Acute kidney failure with tubular necrosis; E11.9 Type 2 diabetes mellitus without complications; J44.9 Chronic obstructive pulmonary disease, unspecified; E87.6 Hypokalemia; I27.20 Pulmonary hypertension, unspecified; E87.70 Fluid overload, unspecified; I11.0 Hypertensive heart disease with heart failure; F17.210 Nicotine dependence, cigarettes, uncomplicated; G89.29 Other chronic pain; E78.5 Hyperlipidemia, unspecified; E83.42 Hypomagnesemia; Z88.6 Allergy status to analgesic agent; Z71.6 Tobacco abuse counseling; Z79.899 Other long term (current) drug therapy; Z20.828 Contact with and (suspected) exposure to other viral communicable diseases
CPT/HCPCS: 10081; 10879

== ENCOUNTER 2019-08-01 16:25 | Inpatient (IN) | payer OTHER ==
[~2019-08-01] VITALS: Ht 144.8 cm; Wt 79.6 kg
[~2019-08-01 16:25] MED LIST changes: +DEMADEX20 MG PO
[2019-08-01 16:27] VITALS: BP 133/76
[2019-08-01 16:53] LABS: ABSOLUTE NEUTROPHILS 5.4 thou/uL (1.4-8.2); BASOPHILS 0.4 % (0.0-2.0); HEMATOCRIT 42.7 % (37.0-47.0); LYMPHOCYTES 9.9 % (24.0-44.0); MCH 29.4 pg (26.0-34.0); MCHC 32.7 g/dL (28.0-37.0); MCV 89.9 fL (80.0-100.0); MONOCYTES 6.8 % (1.0-8.0); PLATELET COUNT 206 thou/uL (150-400); POLYS 82.9 % (36.0-66.0); RBC 4.75 mil/uL (4.20-5.00); RDW 18.4 % (10.5-14.5); WBC 6.5 thou/uL (4.0-11.0)
[2019-08-01 16:56] LABS: URINE BILIRUBIN NEGATIVE (Negative); URINE BLOOD 1+ (Negative); URINE CLARITY CLEAR; URINE COLOR YELLOW; URINE GLUCOSE-RANDOM* 3+ (Negative); URINE KETONES NEGATIVE (Negative); URINE LEUKOCYTES-REFLEX NEGATIVE (Negative); URINE NITRITE-REFLEX NEGATIVE (Negative); URINE PROTEIN (DIPSTICK) 3+ (Negative)
[2019-08-01 17:04] LABS: CALCIUM 8.5 mg/dL (8.5-10.1); CREATININE 0.9 mg/dL (0.6-1.0)
[2019-08-01 17:06] LABS: CASTS None Seen /LPF (None Seen); CRYSTALS None Seen /LPF (None Seen); SQUAMOUS 0-3 Few /LPF (0-3)
[2019-08-01 17:07] LABS: BACTERIA-REFLEX 1-9 Few /HPF (None Seen); URINE RBC 0-2 Rare /HPF (0-2); URINE WBC-REFLEX 0-5 Rare /HPF (0-5)
[2019-08-01 17:08] LABS: ALBUMIN 2.4 g/dL (3.4-5.0); TOTAL BILIRUBIN 0.9 mg/dL (0.2-1.0); TOTAL PROTEIN 7.3 g/dL (6.4-8.2)
[2019-08-01 17:11] LABS: TROPONIN-I <0.06 ng/mL (<0.06)
--- NOTE | 2019-08-01 19:22 | NUR ---
PUT [facility]IME PHARM[facility]Y BECAUSE BLIND PT DOES NOT KNOW PHARMACY
[2019-08-01 19:29] VITALS: BP 124/65
[2019-08-01 19:35] LABS: CHOLESTEROL 100 mg/dL (<200); HDL CHOLESTEROL 50 mg/dL (>40); LDL CHOLESTEROL 26 mg/dL (<100); TRIGLYCERIDE 120 mg/dL (<150); VLDL 24 mg/dL (<40)
[2019-08-01 19:37] VITALS: BP 103/64
[2019-08-01 20:07] VITALS: BP 107/62
--- NOTE | 2019-08-02 01:55 | NUR ---
PT ARRIVED ON UNIT FROM ER AT 1999. COMES FROM HOME ADMITTED WITH GENERALIZED WEAKNESS X24 HOURS. ALSO HAS CELLULITIS BILAT LOWER EXTREMITIES. PT COMPLETELY BLIND SINCE . HAS HAD RECENT FREQUENT FALLS. DENIES NEED FOR PAIN MEDICATION AT THIS TIME. RESTING COMFORTABLY. NO NEEDS VOICED. CALL LIGHT WITHIN REACH. FREQUENT OBSERVATION.
[2019-08-02 05:02] VITALS: BP 109/63
[2019-08-02 05:45] LABS: HEMATOCRIT 37.4 % (37.0-47.0); HEMOGLOBIN 12.4 gm/dL (12.0-15.0); MCHC 33.2 g/dL (28.0-37.0); MCV 87.4 fL (80.0-100.0); RBC 4.28 mil/uL (4.20-5.00); RDW 17.5 % (10.5-14.5); WBC 4.3 thou/uL (4.0-11.0)
[2019-08-02 06:02] LABS: CALCIUM 8.3 mg/dL (8.5-10.1); CREATININE 0.8 mg/dL (0.6-1.0); MAGNESIUM 1.4 mg/dL (1.8-2.4); POTASSIUM 3.4 mmol/L (3.5-5.1)
[2019-08-02 07:24] VITALS: BP 115/69
--- NOTE | 2019-08-02 08:46 | EKG ---
[facility] [address] [address] ELECTROCARDIOGRAM REPORT Name: ELTON PAGAN Room #: 435- ADM IN M.R.#: [id number] Admission: 08/01/19 Attend Phys: Karla Alvarez MD Discharge: Date of : 52 Report #: [id number] THIS REPORT FOR: cc: Edmundo Medrano MD, Andrew K. MD Park, Jin S. 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: FA : 1950 Requested By: David Cerda Order Number: [id number] MD: Smooth Michele Measurements Intervals [place] Rate: 91 P: 52 TX: 142 QRS: 85 QRSD: 91 T: 20 QT: 379 QTc: 467 Interpretive Statements Sinus tachycardia Paired ventricular premature complexes Borderline right axis deviation Compared to ECG 07/06/2019 16:32:03 Atrial fibrillation no longer present ST (T wave) deviation no longer present Electronically Signed On 08-02-2019 8:45:02 CDT by Smooth Michele [email or web address] <ELECTRONICALLY SIGNED> By: Smooth Michele MD 08/02/19 0845 1632 1632 Smooth Michele MD /EPI
--- NOTE | 2019-08-02 15:30 | NUR ---
ASSUMED CARE OF THE PT AT 0700. PT HAS BLE CELLULITIS, UNABLE TO GET THE TEGADERM FOR THE PT UNTIL TOMORROW FROM WOUND CARE, COMMUNICATIONS EQUIPMENT SUPERVISOR AWARE. BS CONTROLLED BY INSULIN. PT IS NOW ON RA, HAS BEEN TITRATED OFF O2. FALL PRECAUTIONS IN PLACE, BED IN THE LOWEST POSITION AND CALL LIGHT IS WITHIN REACH. WILL CONTINUE TO MONITOR THE PT.
[2019-08-02 15:51] VITALS: BP 101/55
[2019-08-02 18:59] VITALS: BP 98/58
--- NOTE | 2019-08-03 03:28 | NUR ---
PT AMBULATING TO BATHROOM WITH WALKER AND ASSIST X1 AND IS TOLERATING FAIR. DENIES NEED FOR PAIN MEDICATION. RESTING COMFORTLY IN RECLINER. NO NEEDS VOICED. CALL LIGHT WITHIN REACH. FREQUENT OBSERVATION.
[2019-08-03 04:01] VITALS: BP 112/65
--- NOTE | 2019-08-03 06:47 | HC ---
[facility] [place] [address] [address] CONSULTATION Name: ELTON PAGAN Room #: [facility] ADM IN M.R.#: [id number] Admission: 08/01/19 Attend Phys: Edmundo Medrano MD Discharge: Date of : 51 Report #: [id number] THIS REPORT FOR: cc: NO FAMILY PHYSICIAN or PCP NO FAMILY PHYSICIAN or PCP Santosh Sanderson MD ~ CC: Edmundo Alvarez DATE OF SERVICE: 08/02/2019 ATTENDING PHYSICIAN: Dr. Alvarez. REASON FOR EVALUATION: Bilateral lower extremity inflammatory eruption, suspected component of cellulitis presentation of weakness. HISTORY OF PRESENT ILLNESS: Chart reviewed, patient examined. This is a 68-year-old with extensive medical history. She has been blind all her life, has diabetes mellitus, also has underlying chronic obstructive pulmonary disease, who had been feeling progressively weaker over the course of last several days. It is notable that she was hospitalized in June of this year, felt to have experienced a non-ST elevation myocardial infarction. Interestingly, she lives by herself. On questioning, she is not aware of any fevers. She does admit to some shakes. No pulmonary-related complaints. Evaluation is notable she has bilateral lower extremity venous stasis insufficiency with dermatitis. She does note increasing discomfort associated with the left side with a temperature elevation locally. Chest x-ray was unrevealing. Urinalysis unremarkable as well. Blood cultures sterile thus far. Did undergo a venous Doppler, which was unremarkable. She is empirically started on broad-spectrum therapy with vancomycin and ceftriaxone. This a.m., she is quite animated. Admits to some mild to moderate discomfort. She is not apparently encephalopathic. ALLERGIES: ASPIRIN, described as CAUSING NAUSEA. MEDICATIONS: Include ceftriaxone, famotidine, metformin, torsemide, atorvastatin, vancomycin, budesonide, ipratropium and albuterol inhaler, gabapentin, insulin lispro, losartan, oxybutynin, enoxaparin, p.r.n. analgesics. PAST MEDICAL HISTORY: As described above. Lifelong blindness, diabetes mellitus type 2, COPD, hypertension. SOCIAL HISTORY: Smokes a pack a day for the last 50 years. No ethanol. No illicit drug use. FAMILY HISTORY: Noncontributory. [address] [address] CONSULTATION Name: [facility] Room #: [address] [place] [address] IN M.R.#: [id number] Admission: 08/01/19 Attend Phys: Edmundo Medrano MD Discharge: Date of : 51 Report #: [id number] REVIEW OF SYSTEMS: Otherwise, unremarkable 10-point review of systems with exception of the above. PHYSICAL EXAMINATION: GENERAL: She is pleasant, alert, cooperative. She is again animated, mild distress, appears reasonably well nourished. VITAL SIGNS: Temperature 98.2, pulse 81, respirations 14, blood pressure 115/69. SKIN: Warm, dry. HEENT: Normocephalic. NECK: Supple. LUNGS: Diminished breath sounds. Few scattered crackles at the bases. HEART: Regular, not appreciate a murmur. ABDOMEN: Mildly distended, soft, nontender. EXTREMITIES: Bilateral lower extremities have dermopathy suggests of chronic venous stasis insufficiency with dermatitis. There is actually no ulcerative lesions at this point, it is somewhat warm to touch, left compared to the right. There are no bullous lesions either. She admits to some tenderness. GENITOURINARY AND RECTAL: Deferred. LABORATORY DATA: Initial CBC: White count 6.5, H and H 14.0 and 42.7, platelets of 206. Urinalysis otherwise unremarkable. Electrolytes: Sodium 135, potassium 4.0, chloride 101, bicarbonate is 28, anion gap of 6, BUN and creatinine 12 and 0.9, glucose is 302. AST of 21, ALT of 17, albumin 2.4, total protein 7.3. CPK 129. Troponin less than 0.06. Chest x-ray, no acute process identified. Lactic acid 2.1. ProBNP elevated at 8118. Blood cultures are sterile thus far. ASSESSMENT AND PLAN: Weakness, bilateral lower extremity inflammatory eruption. There may well be a component of skin and soft tissue infection with cellulitis on the left side there. We will continue current approach, seemingly has improved fairly significantly since her admission. Suspect component of dehydration as well. She states she had not eaten for 2-3 days. We will add compression as allowed. Check arterial Doppler of lower extremities to exclude arterial insufficiency that may be amenable to treatment. She was encouraged to elevate. We will monitor expectantly, certainly at risk for additional complications. <ELECTRONICALLY SIGNED> By: Santosh Sanderson MD 08/03/19 0647 0908 1204 Santosh Sanderson MD /nt
--- NOTE | 2019-08-03 07:40 | EKG ---
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: FA : 1950 Requested By: David Cerda Order Number: [id number] MD: Brian Stark Measurements Intervals [place] Rate: 95 P: 71 CO: 145 QRS: 81 QRSD: 88 T: 30 QT: 362 QTc: 455 Interpretive Statements Sinus rhythm Atrial premature complexes Borderline right axis deviation Compared to ECG 08/01/2019 16:32:59 Atrial premature complex(es) now present Ventricular premature complex(es) no longer present Electronically Signed On 08-03-2019 7:39:02 CDT by rBian Stark [email or web address] <ELECTRONICALLY SIGNED> By: Brian Stark MD, [facility] 08/03/19 0739 1635 1635 Brian Stark MD, FAC /EPI
[2019-08-03 08:13] VITALS: BP 130/53
[2019-08-03] MEDS ORDERED: KEFLEX500 M2 PO (09:12)
--- NOTE | 2019-08-03 13:50 | NUR ---
INITIAL ASSESSMENT/DISCHARGE NOTE: Received consult. PHIL reviewed chart and spoke with nursing and attending physician. Pt was admitted from home due to cellulitis. Pt is medically stable for discharge home today to resume in home Medicaid services and HH. PHIL attempted to speak with pt via phone. No answer. Pt was recently discharged home from [facility] with [facility]. Pt lives alone in an apt. Pt is blind and uses a cane. No steps to navigate in apt building. Pt has Medicaid in home services for 3-4 hours/day Saturday-Saturday. Pt needs transportation home. PHIL arranged w/c van through [employer] between [phone]. business continuity planner to fax discharge orders/summary to [facility]. PHIL attempted to call pt's caregiver, Es ([phone]). No answer or option to leave voice message. PHIL updated pt's nurse regarding discharge timeframe. No additional SW needs identified at this time, but is available to assist should needs arise.
[2019-08-03 14:02] VITALS: BP 130/53
[2019-08-03 14:17] VITALS: BP 130/53
[2019-08-03 14:19] VITALS: BP 130/53
--- NOTE | 2019-08-03 14:55 | NUR ---
VSS-AFEBRILE. LUNGS CLEAR-ROOM AIR. DISCUSSED ALL DC INSTRUCTIONS, VERBALIZED UNDERSTANDING OF ALL DISCUSSED INFORMATION. LEFT UNIT IN WHEELCHAIR, TRANSPORTED HOME IN WHEELCHAIR VAN.
--- NOTE | 2019-08-03 16:54 | NUR ---
PT DISCHARGING TODAY TO HOME WITH TRAINING SYSTEMS OFFICER PT ON SERVICE WITH THEM [employer] IMAGE CONSULTANT. FAXED DC ORDERS/SUMMARY RECEIVED CONFIRMATION THEY WILL NOTIFY PT AND SET UP VISITS.
[2019-08-04 00:07] LABS: GLYCOHEMOGLOBIN (HGB A1C) 9.9 % (4.8-5.6)
== END 2019-08-03 15:01 | disposition home health service (06) | DRG 602 ==
LOC: ER 16:25 → 4S 19:11 → EROBS 19:11 → 4S 19:47
PROVIDERS: Emergency Medicine; Nurse Practitioner Family; Physician Assistant; ADMIT Hospitalist; ATTEND Hospitalist
DX: L03.116 Cellulitis of left lower limb (principal); E43 Unspecified severe protein-calorie malnutrition; N39.0 Urinary tract infection, site not specified; L03.115 Cellulitis of right lower limb; E11.65 Type 2 diabetes mellitus with hyperglycemia; I10 Essential (primary) hypertension; F17.210 Nicotine dependence, cigarettes, uncomplicated; H54.8 Legal blindness, as defined in USA; I27.20 Pulmonary hypertension, unspecified; E78.5 Hyperlipidemia, unspecified; I87.8 Other specified disorders of veins; J44.9 Chronic obstructive pulmonary disease, unspecified; Z79.899 Other long term (current) drug therapy; Z79.84 Long term (current) use of oral hypoglycemic drugs; Z88.6 Allergy status to analgesic agent; I25.2 Old myocardial infarction; Z83.3 Family history of diabetes mellitus; Z80.9 Family history of malignant neoplasm, unspecified
CPT/HCPCS: 10195

== ENCOUNTER 2019-10-02 10:30 | Inpatient (IN) | payer OTHER ==
[~2019-10-02] VITALS: Ht 152.4 cm; Wt 76.8 kg
[~2019-10-02 10:30] MED LIST changes: +KEFLEX500 M2 PO
[2019-10-02 10:31] VITALS: BP 137/68
[2019-10-02 12:19] LABS: ABSOLUTE NEUTROPHILS 2.7 thou/uL (1.4-8.2); BASOPHILS 0.4 % (0.0-2.0); EOSINOPHILS 1.5 % (0.0-3.0); HEMATOCRIT 43.9 % (37.0-47.0); HEMOGLOBIN 14.6 gm/dL (12.0-15.0); LYMPHOCYTES 28.9 % (24.0-44.0); MCH 29.4 pg (26.0-34.0); MCHC 33.3 g/dL (28.0-37.0); MCV 88.3 fL (80.0-100.0); MONOCYTES 7.6 % (1.0-8.0); PLATELET COUNT 209 thou/uL (150-400); POLYS 61.6 % (36.0-66.0); RBC 4.97 mil/uL (4.20-5.00); RDW 16.8 % (10.5-14.5); WBC 4.4 thou/uL (4.0-11.0)
[2019-10-02 12:40] LABS: URINE BILIRUBIN NEGATIVE (Negative); URINE BLOOD TRACE (Negative); URINE CLARITY CLEAR; URINE COLOR YELLOW; URINE GLUCOSE-RANDOM* 3+ (Negative); URINE KETONES NEGATIVE (Negative); URINE LEUKOCYTES-REFLEX NEGATIVE (Negative); URINE NITRITE-REFLEX NEGATIVE (Negative); URINE PROTEIN (DIPSTICK) 3+ (Negative); URINE UROBILINOGEN 0.2 E.U./dl (0.2-1.0)
[2019-10-02 12:44] LABS: ANION GAP 7 mmol/L (7-16); BUN 19 mg/dL (7-18); CALCIUM 8.8 mg/dL (8.5-10.1); CHLORIDE 103 mmol/L (98-107); CO2 30 mmol/L (21-32); GLUCOSE 290 mg/dL (74-106); SODIUM 140 mmol/L (136-145)
[2019-10-02 12:52] LABS: TROPONIN-I <0.06 ng/mL (<0.06)
[2019-10-02 13:17] LABS: CRYSTALS None Seen /LPF (None Seen); HYALINE CASTS 0-3 Few /LPF (None Seen); SQUAMOUS 4-10 Moderate /LPF (0-3)
[2019-10-02 13:18] LABS: BACTERIA-REFLEX 1-9 Few /HPF (None Seen); URINE RBC 0-2 Rare /HPF (0-2); URINE WBC-REFLEX 6-15 Few /HPF (0-5)
[2019-10-02 13:57] VITALS: BP 134/84
--- NOTE | 2019-10-02 13:58 | NUR ---
Report attempted to CCU nurse. Reports they will have to call back.
[2019-10-02] MEDS ORDERED: FUROSEMIDE 40 M40 M1 PO (14:14)
[2019-10-02] MEDS ORDERED: GLIMEPIRIDE4 MG PO (14:15)
[2019-10-02] MEDS ORDERED: LOSARTAN POTASS50 MG PO ×2 (14:15→14:18)
[2019-10-02] MEDS ORDERED: METFORMIN HCL500 MG PO ×2 (14:17→14:18)
[2019-10-02] MEDS ORDERED: METOPROLOL TART25 MG PO (14:17)
[2019-10-02] MEDS ORDERED: NEURONTIN300 MG PO (14:18)
[2019-10-02] MEDS ORDERED: NEURONTIN 300M300 M2 PO (14:18)
[2019-10-02] MEDS ORDERED: KLOR-CON 1010 MEQ PO (14:18)
[2019-10-02] MEDS ORDERED: LIPITOR40 MG PO (14:19)
[2019-10-02] MEDS ORDERED: AMARYL4 MG PO (14:19)
[2019-10-02] MEDS ORDERED: OMEPRAZOLE40 MG PO (14:19)
[2019-10-02 15:20] VITALS: BP 134/84
[2019-10-02 15:30] VITALS: BP 160/83
[2019-10-02] MEDS ORDERED: DESYREL150 MG PO (16:27)
[2019-10-02] MEDS ORDERED: PROAIR HFA8.5 GM INH ×2 (16:31→16:32)
[2019-10-02] MEDS ORDERED: ALEVE220 M1 PO (16:32)
--- NOTE | 2019-10-02 17:59 | NUR ---
PT. ARRIVED AT THE FLOOR AROUND 1600; PT. AOX4; BILATERY BLIND; [place]; EDUCATED ABOUT FALL PREVENTIONS; ST. UNDERSTANDING; SR ON THE MONITOR; ELEVATED BS; PHYSICIAN NOTIFIED; ANTIBIOTICS GIVEN; ADMISSION PERFORMED; EDUCATED ABOUT GOALS THROUGH THE AFTERNOON; ST. UNDERSTANDING; INSULIN REPLACED; ASSESSMENT CHARGED; FOLLOWING POC; WILL PASS ON REPORT;
[2019-10-02 19:40] VITALS: BP 109/59
[2019-10-03 03:40] VITALS: BP 102/53
--- NOTE | 2019-10-03 04:15 | NUR ---
Assumed pt care at 1900. Pt is alert and oriented with no sign of distress noted. Pt is legally blind. Pt verbalizes pain to leg. Fall precaution in place. Assessment completed and documented. Scheduled meds administered to pt. Tolerated PO intake. Continue to monitor. No further need at this time.
[2019-10-03 06:57] LABS: ABSOLUTE NEUTROPHILS 2.8 thou/uL (1.4-8.2); BASOPHILS 0.4 % (0.0-2.0); EOSINOPHILS 1.5 % (0.0-3.0); HEMATOCRIT 37.9 % (37.0-47.0); HEMOGLOBIN 12.7 gm/dL (12.0-15.0); LYMPHOCYTES 25.8 % (24.0-44.0); MCH 29.5 pg (26.0-34.0); MCHC 33.4 g/dL (28.0-37.0); MCV 88.3 fL (80.0-100.0); MONOCYTES 8.8 % (1.0-8.0); PLATELET COUNT 190 thou/uL (150-400); POLYS 63.5 % (36.0-66.0); RBC 4.29 mil/uL (4.20-5.00); RDW 16.5 % (10.5-14.5); WBC 4.3 thou/uL (4.0-11.0)
[2019-10-03 07:12] LABS: ALBUMIN 2.4 g/dL (3.4-5.0); MAGNESIUM 1.9 mg/dL (1.8-2.4); POTASSIUM 3.8 mmol/L (3.5-5.1); TOTAL BILIRUBIN 0.6 mg/dL (0.2-1.0); TOTAL PROTEIN 6.4 g/dL (6.4-8.2)
[2019-10-03 07:37] VITALS: BP 69/58; BP 96/58
--- NOTE | 2019-10-03 11:34 | EKG ---
[facility] [place] [address] [address] ELECTROCARDIOGRAM REPORT Name: ELTON PAGAN Room #: 207- ADM IN M.R.#: [id number] Admission: 10/02/19 Attend Phys: Kelley Whitmore MD Discharge: Date of : 51 Report #: [id number] THIS REPORT FOR: cc: FAM - Family physician unknown FAM - Family physician unknown Ramana Lancaster MD ~ THIS REPORT FOR: //name// [facility] ED Test Date: 2019-10-02 Test Time: 10:46:32 Pat Name: ELTON PAGAN Department: Room: [facility] [place] Gender: F Shipping Support: JANE : 1950 Requested By: Kelvin Gutierrez Order Number: [id number] MD: Ramana Lancaster Measurements Intervals [place] Rate: 52 P: 63 MS: 150 QRS: 72 QRSD: 105 T: 12 QT: 511 QTc: 476 Interpretive Statements Sinus rhythm Borderline T wave abnormalities Compared to ECG 08/01/2019 16:35:38 T-wave abnormality now present Atrial premature complex(es) no longer present Electronically Signed On 10-03-2019 11:34:08 CDT by Ramana Lancaster [email or web address] <ELECTRONICALLY SIGNED> By: Ramana Lancaster MD 10/03/19 1134 1046 1046 Ramana Lancaster MD /EPI
[2019-10-03 12:38] VITALS: BP 109/57
[2019-10-03 16:00] VITALS: BP 98/55
--- NOTE | 2019-10-03 17:47 | NUR ---
ASSUMED CARE OF PT AT SHIFT CHANGE. ASSESSMENT CHARTED. MEDS GIVEN PER APR. PT A&OX4, NO C/O PAIN OR DISTRESS. EEG COMPLETE. BLISTER ON LEFT LEG STILL INTACT. WILL CONTINUE TO MONITOR AND FOLLOW POC.
[2019-10-03 19:55] VITALS: BP 121/63
[2019-10-04 04:45] VITALS: BP 139/77
--- NOTE | 2019-10-04 05:30 | NUR ---
Assumed pt care at 1900. Pt is alert and orientd. No sign of distress noted in pt. Pt is laying down resting bed. Fall precaution in place. Pt is complaint. Assesment completed and documented. Scheduled meds administered to pt. Tolerated po intake. No acute events overnight. No further needs at this time
[2019-10-04 08:38] VITALS: BP 136/67
[2019-10-04 11:59] VITALS: BP 124/53
[2019-10-04 15:30] VITALS: BP 121/52
--- NOTE | 2019-10-04 18:47 | NUR ---
RECEIVED PT'S CARE AROUND 0735; PT. ON BEDL RESTING WITH EYES CLOSED; EQUAL CHEST RISING NOTICED; SR ON THE MONITOR; DURING AM ASSESSMENT PT. AOX4; NO C/O PAIN; AM MEDICATIONS GIVEN; PER SAMPLE STEAMER REPORT PT. HAD 200 ML DURING THE LAST TWO NIGHTS; PHYSICIAN NOTIFIED DURING ROUNDING; NO NEW ORDERS; PT. INCONTINENT & ABLE TO VOID 450 ML; SR ON THE MONITOR; EDUCATED ABOUT FALL PREVENTIONS; ST. UNDERSTANDING; NO WOUND CARE SPECIALIST BLE; ASSESSMENT CHARGED; FOLLOWING POC; WILL PASS ON REPORT;
[2019-10-04 19:50] VITALS: BP 120/54
[2019-10-05 03:48] VITALS: BP 128/62
--- NOTE | 2019-10-05 07:08 | NUR ---
A/O X 4.LEGALLY BLIND.UP TO THE BEDSIDE COMMODE.VOIDS.BM X 1.BLISTERS NOTED BUT NOT POPPED YET.REPORT GIVEN TO STEPHEN PETERSON RN.POC CONTINUED.
[2019-10-05 07:52] VITALS: BP 135/71
--- NOTE | 2019-10-05 13:17 | NUR ---
PT ADMITTED RELATED TO FELT AT HOME; BLE CELLULITIS. CM REVIEWED CHART AND SPOKE WITH CARE TEAM. CM VISITED WITH PT AT BEDSIDE THIS DAY. PT APPEARES TO BE A&O X4. CM ROLE INTRODUCED. SHE INDICATED THAT SHE RESIDES IN AN APARTMENT ALONE WITH ELEVATOR ACCESS. PT INDICATED THAT SHE USED A 4WW WITH A SEAT TO ASSIST WITH MOBILITY CUSTOMER SUPPORT TECHNICIAN. PT INIDCATED SHE HAS HCBS THROUGH HER [employer] 5 DAYS A WEEK FOR 3HRS PER DAY A WOMEN NAMED STACEY. SHE INDICATED THAT SHE HAD BEEN INDEPENDENT WITH ADLS CUSTOMER SUPPORT TECHNICIAN. PER CHART AND PT SHE HAS HAD [facility] SERVICES IN THE PAST. CM INDICATED TO PT THAT CARE TEAM ARE RECOMMENDING POST ACUTE CARE STAY BUT PT INDICATED SHE WAS NOT RECEPTIVE TO THAT THAT SHE WANTED TO RETURN HOME WITH HH SERVICES AND HCBS. PT AND OT ORDERED BUT THEY HAVEN'T SEEN PT YET. CM NOTIFIED PT OF PT'S PREERENCE. AWAITING THERAPY EVALS. CM TO FOLLOW INDICATED WITH DC PLANNING.
[2019-10-05 15:45] VITALS: BP 177/98
--- NOTE | 2019-10-05 19:31 | NUR ---
Assumed pt care at 7am.Pt in bed very active and pleasant.Assessment completed.vss.Pt has good appetite and tolerated meds.Dr Medrano here,order noted.Pt up in chair for over 2 hours today. Eval done by ot/pt.Pt might possible dc home or snf in am.Pain med given later this afternoon with relief. Will continue to monitor.
[2019-10-05 19:32] VITALS: BP 158/79
[2019-10-06] VITALS (8 sets, daily range): BP systolic 122; BP diastolic 59
--- NOTE | 2019-10-06 06:30 | NUR ---
Assumed pt care at 1900. A/OX4,pleasant. VSS.Denies pain on assessment.Patient is legally blind,calls for help as needed. Up with A/X1 to BSC. Dsg on Left Leg C/D/I. Fall precautions in place calls approp for help.
--- NOTE | 2019-10-06 08:29 | HC ---
[facility] [place] [address] CONSULTATION Name: ELTON PAGAN Room #: 454-P ADM IN M.R.#: [id number] Admission: 10/02/19 Attend Phys: Kelley Whitmore MD Discharge: Date of : 51 Report #: [id number] THIS REPORT FOR: cc: PETER - Family physician unknown PETER - Family physician unknown Sabas Perdomo MD ~ CC: PETER unknown Kelley Whitmore DATE OF SERVICE: 10/03/2019 WOUND CARE CONSULTATION REASON FOR CONSULTATION: Cellulitis of right and left leg in a patient with diabetes mellitus and neuropathy and blistering of the left leg. HISTORY OF PRESENT ILLNESS: The patient is a 69-year-old woman living in independent care facility, admitted to the Emergency Room with cellulitis of both legs with blistering of her left leg. Blisters are intact. There is some question she may have had a fall or possible syncope. She presented to the Emergency Room due to worsening cellulitis of the legs. She is currently on IV Zosyn and vancomycin. PAST MEDICAL HISTORY: 1. Blindness with glaucoma. 2. Diabetes mellitus type 2. 3. History of non-ST elevated myocardial infarction. ALLERGIES: ASPIRIN. HOME MEDICATIONS: Torsemide. She was on Keflex at home, Cozaar, metformin, Lasix, metoprolol, oxybutynin, gabapentin, Amaryl, and omeprazole. REVIEW OF SYSTEMS: Blindness from glaucoma. PHYSICAL EXAMINATION: GENERAL: Shows a well-appearing elderly woman who is blind. She is alert and conversant, though not a good historian. HEENT: Mucous membranes are moist. NECK: Supple. ABDOMEN: Soft. EXTREMITIES: Shows redness of both legs, starting approximately 10 cm below the knee. This is mainly anterior on the leg. On the left leg, there is cellulitis of the lower leg, but also large bullous blisters are present on the anterior leg below the knee. These are horizontally linear, wound measuring 10 cm x 2 cm. Blisters are intact containing straw-colored serous fluid. Dorsal pedis [facility] [address] [place] [address] CONSULTATION Name: SUNITA PAGANTTE Room #: 454-P ADM IN M.R.#: [id number] Admission: 10/02/19 Attend Phys: Kelley Whitmore MD Discharge: Date of : 52 Report #: [id number] pulses are weak. IMPRESSION: 1. Diabetes mellitus 2 with skin complications. 2. Cellulitis of right and left leg. 3. Blistering of the left leg with intact blisters. 4. Tobaccoism. 5. Blindness with glaucoma. 6. Diabetes mellitus with neuropathy. 7. History of non-ST elevated myocardial infarction. IMPRESSION: Bilateral cellulitis. Agree with IV antibiotics. Since the blisters are intact, we will not rupture them. If blisters rupture, we will apply Silvadene 1%, Xeroform, ABD and a Kerlix wrap. I have ordered arterial ultrasound of both legs to assess arterial sufficiency. We will observe improvement of her cellulitis with antibiotics. <ELECTRONICALLY SIGNED> By: Sabas Perdomo MD 10/06/19 0829 1134 1202 Sabas Perdomo MD /nt
[2019-10-06] MEDS ORDERED: KEFLEX500 M1 PO (10:46)
--- NOTE | 2019-10-06 12:50 | NUR ---
PT ON SERVICE WITH SIDE STITCHING MACHINE OPERATOR FAXED REFERRAL FOR RESUMPTION OF CARE SPOKE WITH JUANA IN INTAKE THEY WILL ACCEPT REFERRAL. FAXED DC ORDERS/SUMMARY RECEIVED CONFIRMATION THEY WILL NOTIFY PT TIME OF VISITS.
--- NOTE | 2019-10-06 13:52 | NUR ---
PT IS A&OX4, VSS, AMBULATES GAIT BELT WITH TWO PERSON ASSIST. CARB CONTROL DIET, BISHOP PAIUTE, RIGHT FOREARM IV ABX Q8H, WOUND ON LEFT LOWER EXEMITY REDRESSED TODAY WITH SILVER SULFA. TAKES PILLS WHOLE. FALL PRECAUTIONS IN PLACE, WILL CONTINUE TO MONITOR.
--- NOTE | 2019-10-06 14:25 | NUR ---
CARE TEAM INDICATED THAT PT IS MEDICALLY STABLE TO DC HOME THIS DAY. PT IS AWARE AND AGREEABLE. FRONT OFFICE [facility] CAN RESUME SERVICES WITH PT UPON DC. ORDERS FAXED. CM CALLED AND SPOKE WITH STACEY DONATO PT'S HCBS MINIBUS DRIVER AND SHE IS AWARE AND AGREEABLE. CM ARRANGED [facility] TO TAKE PT HOME TO HER APARTMENT THIS AFTERNOON BETWEEN [id number]. NO OTHER CM INTERVENTION INDICATED. CASE CLOSED.
--- NOTE | 2019-10-08 03:59 | HC ---
[facility] [place] [address] [address] CONSULTATION Name: ELTON PAGAN Room #: [facility] IN M.R.#: [id number] Admission: 10/02/19 Attend Phys: Kelley Whitmore MD Discharge: 10/06/19 Date of : 51 Report #: [id number] THIS REPORT FOR: cc: PETER - Family physician unknown PETER - Family physician unknown Billy Bone MD ~ CC: PETER unknown Kelley Whitmore DATE OF SERVICE: 10/02/2019 HISTORY OF PRESENT ILLNESS: This is a 69-year-old female patient who is a poor historian. She said she had a fall. It is not clear how she fell or whether she really passed out. She has pretty significant cellulitis of the lower extremity. She does have a prior history of problem with myocardial infarction. She says she cannot see anything for which she said it is because of glaucoma. Then, she said she was premature baby and that is what caused it. REVIEW OF SYSTEMS: Positive for diabetes. She apparently has some neuropathy from the diabetes. She has been using walker at home for a long time. She has a history of COPD. She smokes. She is a diabetic. She has a history of hypertension. This was a relevant 14-point review of system. PAST MEDICAL HISTORY: Negative for any stroke. FAMILY HISTORY: Unremarkable. SOCIAL HISTORY: She does have a history of smoking. PHYSICAL EXAMINATION: She is alert. She is partly oriented. She is able to follow simple commands. Her speech looks intact. Cranial nerve examination is positive for blindness. She moves all 4 extremities. She has pretty significant cellulitis in both lower extremities. It took us some time, but looks like she can tell about the position sense. Reflexes could not be elicited. Blood pressure is 160/83, respirations 24, pulse is 69, temperature is 97.4. LABORATORY DATA: Lab indicated white count of 4.4. Cardiac and respiratory examinations appear noncontributory. IMPRESSION: It is unlikely that there is any neurological etiology for the patient's symptom. She has pretty significant cellulitis, in the baseline she uses a walker and she has a cardiac issue. I will suggest working up non-neurological issues at the moment. I will get an EEG done and probably get an MRI done on Saturday until she has more symptoms. [address] [address] CONSULTATION Name: [place] Room #: 454-P [facility] IN M.R.#: [id number] Admission: 10/02/19 Attend Phys: Kelley Whitmore MD Discharge: 10/06/19 Date of : 52 Report #: [id number] Thank you very much for this referral. <ELECTRONICALLY SIGNED> By: Billy Bone MD 10/08/19 0359 [id number] Billy Bone MD /nt
--- NOTE | 2019-10-08 04:00 | EEG ---
[facility] [place] [address] ELECTROENCEPHALOGRAM Name: ELTON PAGAN Room #: 454-P [facility] IN M.R.#: [id number] Admission: 10/02/19 Attend Phys: Kelley Whitmore MD Discharge: 10/06/19 Date of : 52 Report #: [id number] THIS REPORT FOR: //name// CC: FAM unknown Kelley Whitmore This patient had an episode of syncope. EEG is being done to evaluate the possibility of seizure. EEG was done by placing the electrode by standard 10-20 system of electrode placement. Both referential and sequential montages were used for recording. Background activity is about 9 Hz and 30 microvolt. It is intermixed with theta range slowing on both sides. Photic stimulation is unremarkable. The patient became drowsy and that is associated with bilateral slowing. Throughout the record, no active epileptiform activity was noticed. IMPRESSION: This patient's EEG is intermixed with theta range slowing on both sides. That is a nonspecific abnormality, which can occur with dementia, encephalopathy, effect of psychotropic medication, etc. No active epileptiform activity was noticed. <ELECTRONICALLY SIGNED> By: Billy Bone MD 10/08/19 0400 [id number] [id number] Billy Bone MD /nt
== END 2019-10-06 15:54 | disposition home health service (06) | DRG 602 ==
LOC: ER 10:30 → EROBS 13:09 → 2N 13:09 → 4W 13:09 → 2N 15:19 → 4W 10-05 07:53 → TBACV 10-05 11:56 → 4W 10-05 11:58
PROVIDERS: Emergency Medicine; ADMIT Internal Medicine; ATTEND Internal Medicine
DX: L03.116 Cellulitis of left lower limb (principal); E43 Unspecified severe protein-calorie malnutrition; J44.9 Chronic obstructive pulmonary disease, unspecified; E11.628 Type 2 diabetes mellitus with other skin complications; S80.822A Blister (nonthermal), left lower leg, initial encounter; E11.40 Type 2 diabetes mellitus with diabetic neuropathy, unspecified; I25.10 Atherosclerotic heart disease of native coronary artery without angina pectoris; I27.20 Pulmonary hypertension, unspecified; F17.210 Nicotine dependence, cigarettes, uncomplicated; K21.9 Gastro-esophageal reflux disease without esophagitis; N18.9 Chronic kidney disease, unspecified; G89.29 Other chronic pain; I12.9 Hypertensive chronic kidney disease with stage 1 through stage 4 chronic kidney disease, or unspecified chronic kidney disease; E66.9 Obesity, unspecified; E11.22 Type 2 diabetes mellitus with diabetic chronic kidney disease; F03.90 Unspecified dementia, unspecified severity, without behavioral disturbance, psychotic disturbance, mood disturbance, and anxiety; Z60.2 Problems related to living alone; N32.81 Overactive bladder; Z88.6 Allergy status to analgesic agent; I25.2 Old myocardial infarction; Z82.49 Family history of ischemic heart disease and other diseases of the circulatory system; Z68.33 Body mass index [BMI] 33.0-33.9, adult; Z71.6 Tobacco abuse counseling; Z79.899 Other long term (current) drug therapy; W18.39XA Other fall on same level, initial encounter; Y93.89 Activity, other specified; Y92.098 Other place in other non-institutional residence as the place of occurrence of the external cause; Y99.8 Other external cause status
CPT/HCPCS: 10045; 10081

== ENCOUNTER 2020-08-09 13:42 | Emergency (ER) | payer OTHER ==
[~2020-08-09] VITALS: Ht 144.8 cm; Wt 77.1 kg
[~2020-08-09 13:42] MED LIST changes: +ALEVE220 M1 PO; +AMARYL4 MG PO; +DESYREL150 MG PO; +FUROSEMIDE 40 M40 M1 PO; +KEFLEX500 M1 PO; +KLOR-CON 1010 MEQ PO; +LIPITOR40 MG PO; +LOSARTAN POTASS50 MG PO; +METFORMIN HCL500 MG PO; +NEURONTIN 300M300 M2 PO; +NEURONTIN300 MG PO; +OMEPRAZOLE40 MG PO; +PROAIR HFA8.5 GM INH
[2020-08-09 13:43] VITALS: BP 166/79
== END 2020-08-09 18:14 | disposition home or self-care (01) ==
LOC: ER 13:42
DX: S39.012A Strain of muscle, fascia and tendon of lower back, initial encounter (principal); S16.1XXA Strain of muscle, fascia and tendon at neck level, initial encounter; S70.02XA Contusion of left hip, initial encounter; S09.90XA Unspecified injury of head, initial encounter; M24.551 Contracture, right hip; E11.9 Type 2 diabetes mellitus without complications; J44.9 Chronic obstructive pulmonary disease, unspecified; I10 Essential (primary) hypertension; F17.210 Nicotine dependence, cigarettes, uncomplicated; Z88.6 Allergy status to analgesic agent; Z79.899 Other long term (current) drug therapy; W18.30XA Fall on same level, unspecified, initial encounter; Y93.89 Activity, other specified; Y92.89 Other specified places as the place of occurrence of the external cause; Y99.9 Unspecified external cause status

== ENCOUNTER 2020-08-17 12:42 | Inpatient (IN) | payer OTHER ==
[~2020-08-17] VITALS: Ht 149.9 cm; Wt 86.2 kg
[2020-08-17 13:06] VITALS: BP 148/70
[2020-08-17 13:09] LABS: ABSOLUTE NEUTROPHILS 3.4 thou/uL (1.4-8.2); BASOPHILS 0.9 % (0.0-2.0); EOSINOPHILS 1.3 % (0.0-3.0); HEMATOCRIT 42.2 % (37.0-47.0); HEMOGLOBIN 13.8 gm/dL (12.0-15.0); LYMPHOCYTES 21.5 % (24.0-44.0); MCH 28.7 pg (26.0-34.0); MCHC 32.7 g/dL (28.0-37.0); MCV 87.9 fL (80.0-100.0); MONOCYTES 7.6 % (1.0-8.0); PLATELET COUNT 191 thou/uL (150-400); POLYS 68.7 % (36.0-66.0); RDW 15.6 % (10.5-14.5)
--- NOTE | 2020-08-17 13:13 | NUR ---
rehabilitation services coordinator responding to stroke activation. pt reports symptoms starting this morning at 08:00. patient states her right hand wouldn't work properly. significant weakness noted in right hand. NIHSS-0. patient A&Ox3. patient also seen in dept 08/09/20 for a trauma striking head. patient not a tPA canidate. will continue to monitor.
[2020-08-17 13:14] LABS: CALCIUM 8.2 mg/dL (8.5-10.1); CREATININE 0.9 mg/dL (0.6-1.0); POTASSIUM 4.2 mmol/L (3.5-5.1)
[2020-08-17 13:20] LABS: ALBUMIN 1.9 g/dL (3.4-5.0); TOTAL BILIRUBIN 0.4 mg/dL (0.2-1.0); TOTAL PROTEIN 6.2 g/dL (6.4-8.2)
[2020-08-17 14:12] LABS: PROTIME 10.4 Seconds (9.3-11.4)
--- NOTE | 2020-08-17 14:22 | NUR ---
ATTEMPTED TO CONTACT SOMEONE AT [facility] TO INQUIRE ABOUT MEDICATION LIST, WAS NOTIFIED THAT PATIENT HAS A MED AID THAT COMES A COUPLE TIMES A WEEK BUT THE FACILITY IS INDEPENDENT LIVING SO THEY ARE UNABLE TO PROVIDE ANY FURTHER INFORMATION/ ASSISTANCE. [id number], [facility], [address]
[2020-08-17 14:23] LABS: APTT > 139.0 Seconds (24.5-32.8)
--- NOTE | 2020-08-17 14:44 | EKG ---
[place] [address] [facility] [place] [address] ELECTROCARDIOGRAM REPORT Name: ELTON PAGAN [id number] Admission: 08/17/20 Attend Phys: Discharge: Date of : 52 Report #: [id number] [facility] ED Test Date: 2020-08-17 Test Time: 14:08:56 Pat Name: ELTON PAGAN Department: Room: Gender: F Hydraulic Tester: JT JAIN : 1950 Requested By: Agusto Kaiser Order Number: [id number] MD: Jeffrey Keith Measurements Intervals [place] Rate: 73 P: 68 MO: 140 QRS: 88 QRSD: 61 T: 18 QT: 519 QTc: 572 Interpretive Statements Sinus arrhythmia Ventricular bigeminy Borderline right axis deviation Low voltage, extremity leads Prolonged QT interval Compared to ECG 10/02/2019 10:46:32 Ventricular premature complex(es) now present Low QRS voltage now present Prolonged QT interval now present Sinus rhythm no longer present T-wave abnormality no longer present Electronically Signed On 08-17-2020 14:44:37 CDT by Jeffrey Keith [email or web address] <ELECTRONICALLY SIGNED> By: Jeffrey Keith MD, [facility] 08/17/20 1444 1408 [id number] Jeffrey Keith MD, [facility] /EPI
[2020-08-17 17:26] LABS: URINE BILIRUBIN NEGATIVE (Negative); URINE BLOOD 1+ (Negative); URINE CLARITY CLEAR; URINE COLOR YELLOW; URINE GLUCOSE-RANDOM* 2+ (Negative); URINE KETONES NEGATIVE (Negative); URINE LEUKOCYTES-REFLEX NEGATIVE (Negative); URINE NITRITE-REFLEX NEGATIVE (Negative); URINE PROTEIN (DIPSTICK) 3+ (Negative); URINE UROBILINOGEN 0.2 E.U./dl (0.2-1.0)
[2020-08-17 17:47] LABS: BACTERIA-REFLEX None Seen /HPF (None Seen); CASTS None Seen /LPF (None Seen); CRYSTALS None Seen /LPF (None Seen); SQUAMOUS 0-3 Few /LPF (0-3); URINE RBC 3-10 Few /HPF (NONE SEEN); URINE WBC-REFLEX 0-5 Rare /HPF (0-5)
[2020-08-17 20:03] VITALS: BP 143/95
[2020-08-17 20:04] LABS: CHOLESTEROL 155 mg/dL (<200); HDL CHOLESTEROL 73 mg/dL (>40); LDL CHOLESTEROL 54 mg/dL (<100); TC:HDL 2.1 Ratio (Not establshd); TRIGLYCERIDE 144 mg/dL (<150); VLDL 29 mg/dL (<40)
[2020-08-17 22:32] VITALS: BP 112/52
[2020-08-17 22:36] VITALS: BP 143/73
[2020-08-17 22:50] VITALS: BP 137/74
--- NOTE | 2020-08-18 01:57 | NUR ---
ADMIT PT ADMITTED TO ROOM 364 FROM ED WITH CVA, RIGHT ARM WEAKNESS AND, HYPERGLYCEMIA. PT VSS, A/O X4. BILATERAL LOWER LEGS EDEMATOUS, AND RED HAS A HX OF CELLULITIS. PANNUS FOLD RED AND MOIST WITH FUNGAL SMELL. IV TO RIGHT FOREARM SALINE LOCKED. HAS A HISTORY OF FALLS WITH LAST ONE BEING SOMETIME LAST WEEK AND PT DENIES INJURY. ORIENTED TO ROOM, CALL LIGHT SYSTEM AND POC. PT R/V UNDERSTANDING.
[2020-08-18 04:07] LABS: GLYCOHEMOGLOBIN (HGB A1C) 11.9 % (4.8-5.6)
[2020-08-18 04:52] LABS: CREATININE 0.8 mg/dL (0.6-1.0)
[2020-08-18 04:55] VITALS: BP 139/62
[2020-08-18 07:56] VITALS: BP 134/83
--- NOTE | 2020-08-18 10:34 | NUR ---
Consulted r/t uncontrolled DM with A1c 11.9. Pt blind, will need assit in choosing meals for the day. RD assisted with lunch order and read the dinner menu to her during visit. She reports she has a home health aide that comes to the house 5 days/week and helps with preparing her foods at home. She like casseroles and sandwiches. Is currently only on oral DM meds [facility], on insulin this admit. Pt reported desired weight loss and states she was 298# at her highest, now 187#, which is up slightly from UBW from hospital records. Declined any formal nutrition education r/t DM and weight management, but would like to have some printed information with meal plans and recipes for her to take home with her that her home health aide can use as education. RD will provide as requested. Low nutrition risk.
[2020-08-18 11:14] VITALS: BP 121/72
--- NOTE | 2020-08-18 15:34 | NUR ---
INITIAL ASSESSMENT: Received consult. SW reviewed chart and spoke with nursing and attending physician. Pt was admitted from home due to right arm weakness. Possible CVA. SW met with pt at bedside. Introduced role of SW. Pt is alert/orientated. Pt is blind. Pt reports she lives alone in an apt at [facility]. Pt has a cane and walker. Pt has in-home care through her [place]-Medicaid. M-F from [phone]. Pt's caregiver is Es. Pt has used [facility] in the past. Pt states her PCP is Dr. Campa. Unsure of the physician's first name or office location. Pt gave consent for SW to contact Es to provide update. SW placed call to Es and the number is no longer in service. Therapy ordered to evaluate pt. PHIL is following to assist as needed with discharge planning.
[2020-08-18 15:37] VITALS: BP 149/86
--- NOTE | 2020-08-18 19:39 | NUR ---
ASSUMED PATIENT CARE AT 0700. A/O X4. NIH X0. RIGTH HAND WEAKNESS. PROGRESSING TOWARDS POC GOALS.
[2020-08-18 20:23] VITALS: BP 135/79
[2020-08-19 05:42] VITALS: BP 141/88
[2020-08-19 07:46] VITALS: BP 147/75
[2020-08-19 09:02] VITALS: BP 147/75
--- NOTE | 2020-08-19 11:32 | NUR ---
RN ASSUMED PT'S CARE AT 0700-1100AM, PT IS A&OX4, PT IS ON ROOM AIR , PT'S VS ARE STABLE, PT DENIES PAIN AND SOB , BUT PT STILL HAS R ARM WEAKNESS, RN RECEIVED ORDER , PT DC TODAY, AND ADNIT TO [facility] REHAB, RN HAS GIVING REPORT AT 1000AM, PT SENT TO 5N BY W/C AT 1100AM.
--- NOTE | 2020-08-19 12:03 | NUR ---
DISCHARGE NOTE: SW reviewed chart and spoke with nursing and attending physician. Pt is medically stable for discharge to 5N today. SW confirmed plan with [facility] medical liaison, who met with pt at bedside. Pt is agreeable with discharge plan. Pt's caregiver, Es, is also aware of discharge plan. Discharge ppwk completed. COVID test negative. Pt moved to 5N earlier today. Case mgmt following to assist as needed with discharge planning.
== END 2020-08-19 11:25 | DRG 73 ==
LOC: ER 12:42 → 3W 19:28 → EROBS 19:28 → 3W 22:50
PROVIDERS: Nurse Practitioner; Nurse Practitioner Family; Psychiatry & Neurology Neuromuscular Medicine; ADMIT Internal Medicine; ATTEND Internal Medicine
DX: G56.31 Lesion of radial nerve, right upper limb (principal); E43 Unspecified severe protein-calorie malnutrition; E11.40 Type 2 diabetes mellitus with diabetic neuropathy, unspecified; H54.8 Legal blindness, as defined in USA; J44.9 Chronic obstructive pulmonary disease, unspecified; I10 Essential (primary) hypertension; I25.10 Atherosclerotic heart disease of native coronary artery without angina pectoris; I27.20 Pulmonary hypertension, unspecified; E78.5 Hyperlipidemia, unspecified; F17.210 Nicotine dependence, cigarettes, uncomplicated; R53.81 Other malaise; N32.81 Overactive bladder; M21.331 Wrist drop, right wrist; S09.90XA Unspecified injury of head, initial encounter; R26.89 Other abnormalities of gait and mobility; S30.0XXA Contusion of lower back and pelvis, initial encounter; Z20.822 Contact with and (suspected) exposure to COVID-19; S70.00XA Contusion of unspecified hip, initial encounter; E11.65 Type 2 diabetes mellitus with hyperglycemia; Z88.6 Allergy status to analgesic agent; Z71.6 Tobacco abuse counseling; Z68.38 Body mass index [BMI] 38.0-38.9, adult; Z79.899 Other long term (current) drug therapy; W18.39XA Other fall on same level, initial encounter; Y93.89 Activity, other specified; Y92.89 Other specified places as the place of occurrence of the external cause; Y99.8 Other external cause status
CPT/HCPCS: 10879

== ENCOUNTER 2020-08-19 07:48 | Inpatient (IN) | payer OTHER ==
[~2020-08-19] VITALS: Ht 144.8 cm; Wt 86.4 kg
--- NOTE | ~2020-08-19 | HC ---
[facility] [place] [address] CONSULTATION Name: ELTON PAGAN Room #: [facility] ADM IN M.R.#: [id number] Admission: 08/19/20 Attend Phys: Jomar James MD Discharge: Date of : 52 Report #: [id number] THIS REPORT FOR: cc: PETER - Family physician unknown FAM - Family physician unknown Ernesto Lassiter PhD ~ DOC #: [id number] Ernesto Lassiter, PhD DATE OF SERVICE: 08/21/2020 NEUROBEHAVIORAL STATUS EXAM ATTENDING PHYSICIAN: Jomar James M.D. CLUB MANAGER: Ernesto Lassiter, PhD CLINICAL PRESENTATION: The patient is a 69-year-old female admitted to the [facility] rehabilitation unit for a comprehensive inpatient rehabilitation program to improve functional mobility, activities of daily living and self-care and mental status secondary to deficits from new right wrist drop and multifactorial gait instability with frequent falls. The patient is reported to have been admitted to the hospital on 08/17/2020 with right hand weakness and drop. It started in the a.m. A CT of the head was negative for any acute process. The patient has had recent falls, but she is uncertain of the reason for the falls. The patient is reported to be living in an apartment alone. She is legally blind and has caregivers 5 days a week, approximately 4 hours per day to assist with activities of daily living. Her assessment on admission to the rehabilitation unit is new right wrist drop, multifactorial gait instability with falls, head injury with possible loss of consciousness and syncope, status post fall on 08/09/2020, hip and back contusions, status post fall, type 2 diabetes mellitus, uncontrolled with an H1c of 11.9, hypertension, COPD, blindness, and tobacco abuse. A complete description of her medical condition and history along with medications can be found in her medical record. Neuropsychological consultation was requested to provide assistance in the assessment of cognitive and emotional status and provide recommendations and services. Prior to this most recent admission, she reports living independently in a residential facility. She indicates having been developmentally blind. The patient is . Her spouse reportedly about 15 years ago. She had a son that has last year for multiple sclerosis. The patient does not report a history of treatment for depression or anxiety in the past. TECHNIQUES UTILIZED: Clinical interview, review of medical records, staff consultation and behavioral observation, mini mental status exam [address] [address] CONSULTATION Name: ELTON PAGAN Room #: 504-1 [facility] IN [facility]#: [id number] Admission: 08/19/20 Attend Phys: Jomar James MD Discharge: Date of : 52 Report #: [id number] version and brief verbal fluency assessment (category). EXAMINATION FINDINGS: The patient was pleasant and cooperative with the assessment. 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 She indicates that she does not present with aphasia. Her thoughts are logical and goal oriented. There is no evidence of thought disorder. She describes symptoms to include anxiety and depression, currently. Longstanding difficulty with sleep. She does not report sleeping well during the hospitalization. Appetite is reported as fine. Her performance on the MMSE 2 brief version indicates mild to moderate impairment with a raw score of 10 and 16. She is 3/3 for initial registration, 5/5 for orientation to time, 2/[address], and 0/3 for immediate recall of 3 items after a brief time delay and distraction. Performance on the serial sevens subtest was 1/5 indicating impairment in sustained concentration and attention. Category fluency was extremely low with a raw score of 23, which is a T score of 25 and percentile rank of 1. The patient is presenting with deficits in immediate recall, sustained concentration and attention and executive functioning. Deficits in cognition are likely amplified from hearing deficits that she is hard of hearing and visual impairment as indicated from developmental blindness. DIAGNOSTIC IMPRESSION: 1. Neurocognitive disorder -- extent to be determined, possibly due to vascular disease and medical etiology. Current impairment is likely in the moderate range. 2. Adjustment disorder with anxiety and depressed mood sections. RECOMMENDATIONS: The patient will likely require an increased assistance in the management of medication finances and nutrition. Educational information in regard to diabetic management as indicated. The patient is likely to require assisted living to maintain safety. A treatment program for anxiety and depression may be of benefit following her discharge. Suggested use of an antidepressant along with counseling services to assist in overall adjustment. A followup neurocognitive evaluation will likely help clarify the severity of cognitive deficits upon stabilization of her current condition. Frequent repetition will be necessary to help compensate for issues of memory and also since information cannot be written, we will need to be orally communicated. Increasing supervision in the home upon discharge will be necessary. Thank you very much for allowing me to provide the consultation on this patient. [facility] [address] [place] [address] CONSULTATION Name: ELTON PAGAN Room #: 504-1 ADM IN M.R.#: [id number] Admission: 08/19/20 Attend Phys: Jomar James MD Discharge: Date of : 52 Report #: [id number] Ernesto Lassiter, PhD GINGER/LIZ By: [id number] Ernesto Lassiter, PhD /nt
--- NOTE | ~2020-08-19 | PLAN ---
[facility] [place] [address] REHAB UNIT PLAN OF CARE Name: ELTON PAGAN Room #: 504-1 ADM IN M.R.#: [id number] Admission: 08/19/20 Attend Phys: Jomar James MD Discharge: Date of : 52 Report #: [id number] THIS REPORT FOR: cc: FAM - Family physician unknown FAM - Family physician unknown Jomar James MD ~ DOC #: [id number] Jomar James MD DATE OF SERVICE: 08/21/2020 PROGRESS NOTE AND OVERALL PLAN OF CARE HISTORY OF PRESENT ILLNESS: The patient was seen on the inpatient rehabilitation clements on 08/19/2020. She was in good spirits at that time. Alert. Afebrile. Vital signs are stable. She is legally blind. She has the right wrist drop. Lungs were clear. Cardiac, regular rate and rhythm. Abdomen, bowel sounds positive, nontender. Genitourinary and rectal examination deferred. No focal calf swelling. She has been working in therapies and participated in therapies yesterday 08/20/2020 with transfers at a min assist level. Gait was min assist, 70 feet with a 4-wheeled walker. In occupational therapy, upper body dressing with standby assistance, lower body dressing is max assist. Speech therapy reveals moderate cognitive deficits with severe memory deficits. ASSESSMENT: A 69-year-old female with the following problem list: 1. New right wrist drop. 2. Multifactorial gait instability with falls. 3. Head injury, possible loss of consciousness with syncope, status post fall on 08/09/2020. 4. Hip and back contusion, status post fall. 5. Diabetes mellitus type 2, uncontrolled with elevated hemoglobin A1c. 6. Hypertension. 7. Chronic obstructive pulmonary disease. 8. Legally blind. 9. Tobacco abuse. PLAN: The overall plan of care is based on the pre-admission screen and information garnered from therapy assessments. 1. Estimated length of stay is probably around 10 days. 2. Medical prognosis is reasonably good. 3. Anticipated interventions includes the interdisciplinary acute inpatient patient program. 4. Anticipated functional outcomes would be for the patient to become modified independent with transfers, mobility, ADLs and to improve as far as overall cognition, so she can return back to the home setting. 5. Discharge destination would be back to her apartment. She does have some [facility] [address] [place] [address] REHAB UNIT PLAN OF CARE Name: ELTON PAGAN Room #: 504-1 [facility] IN [facility]#: [id number] Admission: 08/19/20 Attend Phys: Jomar James MD Discharge: Date of : 52 Report #: [id number] caregiver assistance there, which would obviously need to continue. 6. Expected therapy by discipline includes PT, OT and speech 1 hour per day each 5 days a week throughout the duration of the acute inpatient rehabilitation stay. ADDENDUM: The patient's prognosis for significant practical improvement within a reasonable period of time appears good. Given the patient's complex medical condition and risk of further medical complication, rehabilitation services cannot be safely provided at a lower level of care such as a fdc facility. MD MAMADOU Conner By: [id number] Jomar James MD /nt
--- NOTE | 2020-08-19 12:32 | NUR ---
INITIAL REHAB ASSESSMENT: Received consult. PHIL reviewed chart and spoke with nursing and attending physician. Pt was admitted from 3W. Pt is alert/orientated. Pt is blind. Pt reports she lives alone in an apt at [facility]. There is elevator access available. Pt has a cane and walker. Pt has in-home care through her [place]. M-F from [phone]. Pt's caregiver is Es. Pt has used [facility] in the past. PHIL spoke with pt's caregiver, Es, via phone. Introduced role of PHIL. Explained admission to acute rehab, weekly team conferences and discharge plan. Es verbalized understanding. Pt will return to her apt when discharged from rehab. PHIL updated Es's contact info in [employer]. Rehab CM is following to assist as needed with discharge planning.
--- NOTE | 2020-08-19 14:33 | NUR ---
Nutrition: Pt transferred to rehab unit. Assessed by RD 08/18. Hx uncontrolled DM 11.9. Blind, may need assist with choosing meals. Has caregiver who comes to her home 5 days/week, assists w/ meal prep. Prior weights up to 298# with weight loss down to 170# (more usual lately). Follow trends, higher weights on acute. Denied desire for additional education at this time however closer to D/C will provide materials to assist caregiver and be available for any needs over admit. Pt with good appetite and eating 100% of meals on 1800 carb controlled diet. May consider decreasing calorie level to 1500 kcal/day. Place as low risk.
[2020-08-19 19:30] VITALS: BP 152/64
--- NOTE | 2020-08-19 19:42 | NUR ---
PT OREIENTED TO ROOM. USES CALL LIGHT, PT IS LEGALLY BLIND DOES READ BRAILLE. PT A&OX4 BUT IS FORGETFUL. REPEATS QUESTIONS AT TIMES. PT ARJUN AREA IS REDDEND. NYSTATION POWDER APPLIED. ONE TIME DOSE OF DIFLUCAN GIVEN. SLIDING SCALE STARTED. WILL CONTINUE TO MONITOR.
--- NOTE | 2020-08-20 01:46 | NUR ---
assumed care approx 1900 evening 08/19. pt lying in bed with head of bed elevated. pt alert and oriented x4, somewhat forgetful. pt pleasant and cooperative. pt assisted with repositioning. pt appears to be sleeping soundly. bed alarm on and call light in reach. will continue to monitor.
[2020-08-20 04:44] LABS: HEMATOCRIT 35.2 % (37.0-47.0); MCH 29.2 pg (26.0-34.0); MCHC 33.4 g/dL (28.0-37.0); MCV 87.4 fL (80.0-100.0); RBC 4.03 mil/uL (4.20-5.00); RDW 15.5 % (10.5-14.5); WBC 4.6 thou/uL (4.0-11.0)
[2020-08-20 04:45] LABS: HEMOGLOBIN 11.8 gm/dL (12.0-15.0)
[2020-08-20 04:56] LABS: CALCIUM 7.9 mg/dL (8.5-10.1); CREATININE 0.8 mg/dL (0.6-1.0); POTASSIUM 3.5 mmol/L (3.5-5.1)
[2020-08-20 07:15] VITALS: BP 112/61
[2020-08-20 07:45] VITALS: BP 112/61
--- NOTE | 2020-08-20 10:41 | NUR ---
ASSUMED C/O PT AT 0700. PT. A&OX4. PT REPEATS QUESTIONS AND HAS SOME INTERMITTENT CONFUSION. PT IS VERY GIDDY. PT TAKES PILLS WHOLE NEEDS ASSITANCE PT IS LEGALLY BLIND. PT TOLERATING DIET WELL. WILLINGLY WITH THERAPIES. PT GETTING READY TO WORK WITH OT. PT. SHOWERED WITH OT AND THIS NURSE APPLIED NYSTATIN POWDER TO SKIN FOLDS APPLIED INTERDRY TO FOLDS WELL. PT HAS A YEAST TYPE ODOR, PT WAS GIVEN 150 MG DIFLUCON YESTERDAY. CALL LIGHT APPROPRIATE. WILL CONTINUE TO MONITOR.
[2020-08-20 20:39] VITALS: BP 105/61
--- NOTE | 2020-08-21 04:12 | NUR ---
assumed care approx 1900 evening 08/20. pt pleasant and cooperative sitting up in chair at change of shift. assisted pt to bed and has been sleeping well. pt now back in chair, denies complaints. chair alarm on, call light in reach. will continue to monitor.
[2020-08-21 07:25] VITALS: BP 104/63
--- NOTE | 2020-08-21 14:51 | NUR ---
ASSUMED PT CARE AROUND 0700. PT ALERT X ORIENTED X 4, LITTLE FORGETFUL. COOPERATIVE AND PLEASANT. ON ROOM AIR. 1 X PERSON ASST WITH WALKER TO BEDSIDE COMMODE. LBM ON August. TAKE MEDS WHOLE WITH WATER. APPLIED NYSTATIN POWDER BENEATH THE ABDOMEN AND ON SIDESOF GROIN. ACCUCHECK AND ACHS.TYLENOL GIVEN FOR PAIN IN HIPS. FALL PRECAUTION IN PLACE. CALL LIGHT IN REACH. WILL CONTINUE TO MONITOR.
[2020-08-21 19:04] VITALS: BP 126/58
--- NOTE | 2020-08-22 00:53 | NUR ---
PT ALERT AND ORIENTED X 4, CONFUSED AT TIMES. UP TO BSC WITH ASSIST X 1. BLOOD SUGAR 230 AT HS. INSULIN GIVEN ORDERED. PT TOOK HS MEDS WITH WATER WITH ASSISTANCE. PT DENIES PAIN OR DISCOMFORT. BED ALARM ON FOR SAFETY. PT APPEARS TO BE SLEEPING ON HOURLY ROUNDS.
[2020-08-22 08:00] VITALS: BP 131/55
--- NOTE | 2020-08-22 17:09 | NUR ---
ASSUMED CARE OF PT AT 0700 THIS MORNING. PT IS BLIND, A/OX4, SKIN INTACT WITH REDNESS IN THE GROIN AND BUTTOCKS TX WITH Z-JACEK. ASSESSMENTS OTHERWISE UNREMAKABLE AND NOTED IN CHARTS. CALL LIGHT AND OTHER NEEDS ARE PLACED IN REACH. PT/OT/ST WORKING WITH PT ADLS AND STRENGTHENING. MEDS AND TX GIVEN NEEDED AND SCHEDULED. CONTINUEING TO MONITOR PT AND PLACE ANY UPDATES.
[2020-08-22 19:35] VITALS: BP 130/60
--- NOTE | 2020-08-23 05:16 | NUR ---
PT SAT UP IN CHAIR AT BEGINNING OF SHIFT; TOLERATED WELL. SINCE BEING TRANSFERRED TO BED, SHE HAS BEEN SLEEPING MOST OF THE NIGHT. RESPIRATIONS EVEN AND UNLABORED. BLE ELEVATED ON PILLOWS TO HELP REDUCE SWELLING. TYLENOL GIVEN FOR PAIN EARLIER IN THE SHIFT. REPOSITIONED TO PREVENT SKIN BREAKDOWN. FALL PRECAUTIONS IN PLACE. PROGRESSING SLOWLY TOWARD POC GOALS. WILL CONTINUE TO MONITOR FURTHER.
[2020-08-23 08:04] VITALS: BP 146/63
[2020-08-23 11:15] VITALS: BP 146/63
--- NOTE | 2020-08-23 13:14 | NUR ---
Team meeting, recommendation: needs education on insulin and will need preset insulin at home r/t blindness. outpt follow up for wrist drop. Had some incontinent of b and b. dc 08/25 with hh ( pt, ot, st, and nursing). education on blindness and diabetics. Cont. with her [facility] through Medicaid with
[2020-08-23 19:14] VITALS: BP 140/65
--- NOTE | 2020-08-23 20:04 | NUR ---
ASSUMED CARE OF PT AT 0700. WILL CONTNIUE TO MONITOR.
--- NOTE | 2020-08-24 03:14 | NUR ---
ASSESSMENT PER THE DOCUMENTATION.PT HAS BEEN SLEEPING MOST OF THE NIGHT.A/OX4.VSS.PT ASSIST X1 TO BSC.SKIN EXCORIATED TO DONYA ABD PANUS,Z-GUARD APPLIED.DONYA LES ELEVATED WITH PILLOWS.PT DENIES ANY CONCERNS.POC IS TO CONTINUE WITH REHAB ACTIVITIES.
[2020-08-24 05:34] LABS: ABSOLUTE NEUTROPHILS 2.7 thou/uL (1.4-8.2); BASOPHILS 0.3 % (0.0-2.0); EOSINOPHILS 1.5 % (0.0-3.0); HEMATOCRIT 36.1 % (37.0-47.0); HEMOGLOBIN 11.7 gm/dL (12.0-15.0); LYMPHOCYTES 25.8 % (24.0-44.0); MCH 28.8 pg (26.0-34.0); MCHC 32.4 g/dL (28.0-37.0); MCV 88.7 fL (80.0-100.0); MONOCYTES 10.1 % (1.0-8.0); PLATELET COUNT 188 thou/uL (150-400); POLYS 62.3 % (36.0-66.0); RBC 4.07 mil/uL (4.20-5.00); RDW 15.6 % (10.5-14.5); WBC 4.3 thou/uL (4.0-11.0)
[2020-08-24 05:37] LABS: CALCIUM 8.2 mg/dL (8.5-10.1); MAGNESIUM 1.6 mg/dL (1.8-2.4); POTASSIUM 4.5 mmol/L (3.5-5.1)
[2020-08-24 07:33] VITALS: BP 128/75
--- NOTE | 2020-08-24 07:54 | NUR ---
Visited with patient and BUSINESS CHANGE MANAGER in room as well after team meeting yesterday. Cm passed on dc education to lorene, education on checking bs at home. She reported that her friend Es with [facility] can help her with medication and checking her bs, she has meter that talks to her already. She also reported that not on insulin anymore at home and when she was, she was counting the clicks to give herself her insulin. Education on hh, she stated any home health is fine but if i don't like them I won't let them back in her home. Will cont. following as needed for dc needs.
[2020-08-24 09:15] VITALS: BP 128/75
[2020-08-24 19:30] VITALS: BP 152/76
--- NOTE | 2020-08-25 01:24 | NUR ---
PT ASSESSMENT COMPLETED AND VSS. MEDS GIVEN ORDERED AND WELL TOLERATED. FALL PRECAUTIONS IN PLACE. PT DENIES NEEDS. SLEEPING WELL. WILL CONTINUE TO MONITOR FREQUENTLY.
[2020-08-25 07:59] VITALS: BP 111/55
[2020-08-25] MEDS ORDERED: METFORMIN HCL500 MG PO (09:17)
[2020-08-25] MEDS ORDERED: VITAMIN D375 MCG PO (09:17)
--- NOTE | 2020-08-25 09:30 | NUR ---
PT ALERT AND ORIENTED X4. PT LEGALLY BLIND IS ABLE TO FEED SELF WITH MINIMAL ASSISTANCE, SUCH PUTTING SALT AND PEPPER ON FOOD. PT LUNGS CLEAR. PT HAS BOWEL SOUNDS. PT HAS BRIEF ON. PT UP WITH WALKER WITH AMBULATION AND NEEDS ASSISTANCE WITH NAVIGATION. PT TOOK MEDS WHOLE WITH WATER.
--- NOTE | 2020-08-25 09:45 | NUR ---
dc home today, selina darling. cont with [facility] through [employer] (lesli).
[2020-08-25 09:55] VITALS: BP 111/55
--- NOTE | 2020-08-25 11:00 | NUR ---
HOME HEALTH NURSE CAME TO SEE PT. PT IS DISCHARGED HOME TODAY.
--- NOTE | 2020-08-25 13:57 | NUR ---
WENT INTO ROOM TO SAY SHE CAN CALL HER RIDE, PT RESTING IN CHAIR.
--- NOTE | 2020-08-25 15:28 | NUR ---
PT STILL SLEEPING AT THIS TIME.
--- NOTE | 2020-08-25 15:47 | NUR ---
CALLED STACEY DTR AND TO SEE WHEN SHE CAN COME GET HER, SHE SAID THERE IS ONLY ONE CAR AND DIDN'T HAVE IT DUE TO SOMEONE TOOK IT TO WORK. STACEY SAID THAT THE NEIGHBOR HAS HER JORGENSEN AND TO HAVE A LOOK OUT FOR HER WHEN SHE GETS HOME AND STACEY WOULD SEE HER IN THE MORNING. CALLED [employer] AND LEFT MESSAGE ON MACHINE THAT SHE NEEDS A RIDE HOME.
--- NOTE | 2020-08-25 18:00 | NUR ---
PT LEAVING BACK TO HER APT. PT DID GET TO EAT DINNER 100%. PT DID HAVE METFORMIN AND GLIPIZIDE BEFORE SHE LEFT. PT ABLE TO TRANSFER WITH WALKER TO / FOR DISCHARGE. PT THANKED EVERYONE FOR THE CARE SHE WAS GIVEN. PT WHEELED OUT BY TRANSPORT.
== END 2020-08-25 18:09 | disposition home health service (06) | DRG 92 ==
PROVIDERS: Nurse Practitioner; Nurse Practitioner Family; ADMIT Physical Medicine & Rehabilitation; ATTEND Physical Medicine & Rehabilitation
DX: R26.89 Other abnormalities of gait and mobility (principal); E46 Unspecified protein-calorie malnutrition; Z68.41 Body mass index [BMI] 40.0-44.9, adult; M21.331 Wrist drop, right wrist; S70.02XA Contusion of left hip, initial encounter; S70.01XA Contusion of right hip, initial encounter; S30.0XXA Contusion of lower back and pelvis, initial encounter; W18.39XA Other fall on same level, initial encounter; I10 Essential (primary) hypertension; J44.9 Chronic obstructive pulmonary disease, unspecified; H54.8 Legal blindness, as defined in USA; R29.6 Repeated falls; F43.23 Adjustment disorder with mixed anxiety and depressed mood; R41.9 Unspecified symptoms and signs involving cognitive functions and awareness; I27.20 Pulmonary hypertension, unspecified; F17.210 Nicotine dependence, cigarettes, uncomplicated; G56.31 Lesion of radial nerve, right upper limb; E55.9 Vitamin D deficiency, unspecified; D64.9 Anemia, unspecified; N32.81 Overactive bladder; Y93.89 Activity, other specified; Y92.89 Other specified places as the place of occurrence of the external cause; Y99.8 Other external cause status; Z88.8 Allergy status to other drugs, medicaments and biological substances; Z79.899 Other long term (current) drug therapy; Z79.51 Long term (current) use of inhaled steroids; Z71.6 Tobacco abuse counseling; E11.65 Type 2 diabetes mellitus with hyperglycemia; Z87.820 Personal history of traumatic brain injury
CPT/HCPCS: 10112

== ENCOUNTER 2020-09-22 12:26 | Inpatient (IN) | payer OTHER ==
[~2020-09-22] VITALS: Ht 144.8 cm; Wt 81.6 kg
[~2020-09-22 12:26] MED LIST changes: +VITAMIN D375 MCG PO
[2020-09-22 13:04] VITALS: BP 117/63
[2020-09-22 13:58] LABS: ABSOLUTE NEUTROPHILS 4.2 thou/uL (1.4-8.2); BASOPHILS 0.6 % (0.0-2.0); EOSINOPHILS 1.6 % (0.0-3.0); HEMATOCRIT 40.6 % (37.0-47.0); HEMOGLOBIN 13.3 gm/dL (12.0-15.0); LYMPHOCYTES 17.7 % (24.0-44.0); MCHC 32.8 g/dL (28.0-37.0); MCV 88.3 fL (80.0-100.0); MONOCYTES 7.6 % (1.0-8.0); PLATELET COUNT 204 thou/uL (150-400); POLYS 72.5 % (36.0-66.0); RDW 16.3 % (10.5-14.5); WBC 5.7 thou/uL (4.0-11.0)
[2020-09-22 14:02] LABS: CALCIUM 8.2 mg/dL (8.5-10.1); CREATININE 0.9 mg/dL (0.6-1.0); POTASSIUM 4.9 mmol/L (3.5-5.1)
[2020-09-22 14:08] LABS: ALBUMIN 2.1 g/dL (3.4-5.0); TOTAL BILIRUBIN 0.3 mg/dL (0.2-1.0); TOTAL PROTEIN 6.5 g/dL (6.4-8.2)
[2020-09-22] MEDS ORDERED: SIMVASTATIN40 MG PO (21:10)
[2020-09-23 01:42] VITALS: BP 171/75
[2020-09-23 02:23] VITALS: BP 149/87
[2020-09-23 05:47] LABS: HEMATOCRIT 40.6 % (37.0-47.0); HEMOGLOBIN 13.1 gm/dL (12.0-15.0); MCH 28.7 pg (26.0-34.0); MCHC 32.3 g/dL (28.0-37.0); MCV 88.7 fL (80.0-100.0); RBC 4.58 mil/uL (4.20-5.00); RDW 16.4 % (10.5-14.5); WBC 5.3 thou/uL (4.0-11.0)
[2020-09-23 06:00] LABS: CALCIUM 8.2 mg/dL (8.5-10.1); POTASSIUM 4.8 mmol/L (3.5-5.1)
--- NOTE | 2020-09-23 06:17 | NUR ---
YASMINE CARE OF PT FROM ER AT 0200. PT IS AOX3 AND LETS NEEDS BE KNOWN. PT IS COMPLETELY BLIND. FALL PRECAUTON IN [place]. PT WAS ABLE TO ANSWER ALL ADMISSION RELATED QUESTONS. PT COMPLAINED OF BLE PAIN. PRNS GIVEN. WOUND PICS TAKEN. PT WAS ABLE TO GET COMFORTABLE AND SLEEP PART OF THE SHIFT. VSS AND NO S/S OF ACUTE DISTRESS. WILL CONTINUE TO MONITOR.
[2020-09-23 08:00] VITALS: BP 177/76
[2020-09-23 16:00] VITALS: BP 156/72
--- NOTE | 2020-09-23 16:09 | NUR ---
PT ADMITTED RELATED TO BLE CELLULITIS; SEPSIS. CM REVIEWED CHART AND SPOKE WITH CARE TEAM. CM MET WITH PT AT BEDSIDE THIS DAY. PT APPEARED TO BE A&O X4. CM ROLE INTRODUCED. PT INDICATED THAT SHE LIVES ALONE IN AN APARTMENT WITH NO STEPS TO ENTER AND NO STEPS INSIDE. PT INDICATED SHE HAS A 4WW WITH A SEAT TO ASSIST WITH AMBULATION AT HOME. PT INDICATED SHE HAD BEEN INDEPENENT WITH [facility] [employer]STATE PROFESSIONAL. PT'S HCBS CAREGIVER STACEY SEES PT M-F 9-12:30. PT HAD BEEN ON SERVICE WITH [facility]STATE PROFESSION[facility]. PT HAD BEEN ON 5N LAST MONTH AND DC'D HOME. PT INDICATED SHE PLANS TO RETURN HOME WITH RESUMPTION OF HH SERVICES ONCE MEDICALLY STABLE. PT IS ON IV VANC, WC, AND ID CONSULTED. CARE TEAM INDICATED PT TO BE HERE OVER THE WEEKEND. CM FOLLOWING REGARDING DC PLANNING NEEDS.
--- NOTE | 2020-09-23 17:52 | NUR ---
PT ASSESSED AT START OF SHIFT. C/O LEG PAIN AND ULTRAM GIVEN WHICH HELPED. PT UP TO THE CHAIR THIS AM W/ MIN ASSIST. UP TO BSC. SLEPT SOME THIS AFTERNOON. APPETITE IS GOOD. WOUND CARE IN TO SEE PT.
[2020-09-23 20:25] VITALS: BP 118/60
[2020-09-24 00:05] VITALS: BP 139/69
[2020-09-24 04:26] VITALS: BP 142/70
--- NOTE | 2020-09-24 04:53 | NUR ---
ASSUMED CARE OF PT AT SHIFT CHANGE. PT IS AOX3 AND LETS NEEDS BE KNOWN. FALL PERCAUTION IN PLACE. ABX TREATMENT CONTINUED. PT WAS PUT ON 3L 02 VIA NC DUE TO DESATING THIS AM. PT WAS ABLE TO GET COMFORTABLE AND SLEEP PART OF THE SHIFT. VSS AND NO S/S OF ACUTE DISTRESS. WILL CONTINUE TO MONITOR.
[2020-09-24 08:53] VITALS: BP 133/84
--- NOTE | 2020-09-24 11:24 | HC ---
[facility] [place] [address] CONSULTATION Name: ELTON PAGAN Room #: 464- ADM IN M.R.#: [id number] Admission: 09/23/20 Attend Phys: David Abel Discharge: Date of : 52 Report #: [id number] THIS REPORT FOR: cc: PETER - Family physician unknown FAM - Family physician unknown Santosh Sanderson MD ~ DATE OF SERVICE: 09/23/2020 INFECTIOUS DISEASE CONSULTATION ATTENDING PHYSICIAN: Dr. Abel. REASON FOR EVALUATION: Sepsis, likely due to bilateral lower extremity skin and soft tissue infection/cellulitis. HISTORY OF PRESENT ILLNESS: Chart was reviewed. The patient was examined. This is a 70-year-old woman who apparently has been legally blind since , has longstanding issues with lower extremity venous stasis insufficiency, complicated by ulcers, perhaps some degree of lymphedema as well, who presented to the Emergency Room from the clinic for a wound check. Noted to have marked inflammatory changes. This was associated with pain. It is not clear if she had significant fevers. She notes somewhat diminished appetite. States she has been taking an oral antibiotic. Laboratory evaluation was noted elevated lactic acid of 2.3, repeat was 1.3. Venous Doppler study showed no evidence of deep venous thrombosis. Coronavirus testing was negative. Blood cultures collected at time of admission are sterile thus far. Tentatively diagnosed with wound infection complicated by cellulitis. She was empirically placed on therapy with vancomycin. She is fairly animated at this point. Denies any pulmonary or gastrointestinal related complaints. ALLERGIES: ASPIRIN. CURRENT MEDICATIONS: Include atorvastatin, vancomycin, tramadol, glimepiride, metformin, losartan, famotidine, insulin sliding scale, ipratropium, albuterol inhaler, metoprolol. PAST MEDICAL HISTORY: As described above, diabetes mellitus type 2, COPD, hypertension, has known vasculopathy, coronary artery disease, pulmonary hypertension, lower extremity venous stasis insufficiency with dermatitis wounds. SOCIAL HISTORY: Smokes half pack a day for 32 years. No illicit drug use. No ethanol use. FAMILY HISTORY: Noncontributory. [facility] [address] [place] [address] CONSULTATION Name: PAGANELTON Room #: 464-P [facility] IN M.R.#: [id number] Admission: 09/23/20 Attend Phys: David Abel Discharge: Date of : 52 Report #: [id number] REVIEW OF SYSTEMS: Otherwise, unremarkable, as noted above. PHYSICAL EXAMINATION: GENERAL: She was initially somnolent, difficult to arouse, then became quite animated. She appears chronically ill. Has some hirsutism at the face. VITAL SIGNS: Temperature 97.2, pulse 103, respirations 20, blood pressure 129/87. SKIN: Warm, no rashes. HEENT: Normocephalic. NECK: Supple. LUNGS: Diminished breath sounds, scattered crackles. HEART: Borderline tachycardic. There is some irregularity. Has a soft systolic murmur. ABDOMEN: Mildly distended, somewhat firm, nontender. EXTREMITIES: Bilateral lower extremities have dressings in place. It is clear that there is significant swelling. There is moderate degree of surface inflammation. They are palpably tender. GENITOURINARY AND RECTAL: Deferred. LABORATORY DATA: Blood cultures sterile thus far. Electrolytes most recently from this morning, sodium 141, potassium 4.8, chloride , bicarbonate is 25, anion gap of 7, BUN and creatinine 27 and 1.0. CBC: White count of 5.3, H and H 13.1 and 40.6, platelets of 192. Coronavirus testing was negative. ASSESSMENT AND PLAN: Bilateral lower extremity inflammatory eruptions likely multifactorial, cannot entirely exclude a component of skin and soft tissue infection with cellulitis, presumably gram-positive etiology, Staph or Strep. Would continue current approach with vancomycin, should give us adequate coverage. Wound Care is to evaluate. Noted arterial Doppler done in 2019 showed no focal stenosis, diffuse changes, it may be worthwhile to repeat that. She remains quite tenuous at this point, monitor expectantly. Continue supportive care. <ELECTRONICALLY SIGNED> By: Santosh Sanderson MD 09/24/20 1124 [id number] Santosh Sanderson MD /nt
--- NOTE | 2020-09-24 14:31 | NUR ---
CRITICAL VALUE CALLED FROM LAB; PHARMACY NOTIFIED OF VANCO TROUGH OF 23; DOSE HELD UNTIL FURTHER NOTICE
[2020-09-24 15:30] VITALS: BP 150/86
--- NOTE | 2020-09-24 16:08 | NUR ---
PT IS A&O*4, 3 L OXYGEN, TOTAL BLIND, ON BED ALARM. PT REPORT SOUR ON DONYA LEGS AND DRESSING CHANGED IN THE MORNING PER ORDER. A-FIB ON TELE. PT IS INCONTINENT. IV ABX APPEALS ANALYST PER ORDER. WILL KEEP MONITOR PT'S SAFETY UNTIL SHIFT CHANGE.
[2020-09-24 21:18] VITALS: BP 132/80
[2020-09-25 00:14] VITALS: BP 145/93
--- NOTE | 2020-09-25 05:05 | NUR ---
ASSUMED CARE OF PT AT SHIFT CHANGE. PT IS AOX3-4 AND LETS NEEDS BE KNOWN. FALL PRECAUTION IN PLACE. PT REPORTED SOME PAIN; PRNS GIVEN. ASSESSMENT CHARTED. PT HAS GENERALIZED EDEMA. PT SLEPT PART OF THE SHIFT. VSS AND NO S/S OF ACUTE DISTRESS. WILL CONTINUE TO MONITOR.
[2020-09-25 12:39] VITALS: BP 143/79
[2020-09-25 19:43] VITALS: BP 141/93
[2020-09-26 02:39] VITALS: BP 140/91
--- NOTE | 2020-09-26 07:28 | NUR ---
ASSUMED CARE OF PT AT SHIFT CHANGE. PT IS AOX2-3 THIS SHIFT. FALL PRECAUTION IN PLACE. PT REPORTED SOME PAIN; PRNS PROVIDED. 2L O2 VIA NC CONTINUED. PT SLEPT PART OF THE SHIFT. PT IS NEEDING MAX ASSIST TO ABULATE AND HAS SOA WITH ACTIVITY. PT IS GETTING MORE EDEMATOUS. ABX TREATMENT CONTINUED. PT SLEPT PART OF THE SHIFT. VSS; REPORT GIVEN TO ONCOMING RN.
[2020-09-26 08:42] VITALS: BP 151/81
[2020-09-26] MEDS ORDERED: CEFUROXIME500 MG PO (09:25)
[2020-09-26 10:41] VITALS: BP 151/81
[2020-09-26 12:24] VITALS: BP 151/81
--- NOTE | 2020-09-26 16:00 | NUR ---
CARE TEAM INDICATED THAT PT IS MEDICALLY STABLE TO DC HOME THIS DAY. CM MET WITH PT AT BEDSIDE AND SHE IS AWARE AND AGREEABLE OF DC. CM CALLED PT'S HCBS CAREGIVER STACEY AND SHE IS AWARE WELL. SHE INDICATED THAT SHE WILL SEE PT IN THE AM AT 8-12 USUAL. SHE ASKED THAT CM SET UP TRANSPORT HOME. PT IS AWARE AND AGREEABLE. PT HAS HER APARTMENT [place]. [facility] SET UP FOR [id number]. PT HAD BEEN ON 2L O2 BUT NURSE INDICATED THAT IT'S FOR COMFORT AND THAT PT DOESN'T NEED IT UPON DC. CM FAXED DC ORDERD TO [facility] FOR THEM TO RESUME HH SERVIVES UPON DC HOME THIS DAY. CM SPOKE WIHT INTAKE AND THEY ARE ABLE TO ACCEPT PT AND RESUME SERVICES. NO OTHER CM INTERVENTION INDICATED. CASE CLOSED.
--- NOTE | 2020-09-26 17:07 | NUR ---
PATIENT A&OX3 THIS SHIFT; ULTRASOUND COMPLETE OF LEGS. UPX1; SOB W EXERTION. WOUND CARE COMPLETE THIS DAY. VITALS REMAIN STABLE. PATIENT DEEMED MEDICALLY STABLE TO DISCHARGE. WILL CONTINUE TO MONITOR UNTIL TRANSPORT ARRIVED
--- NOTE | 2020-09-27 09:19 | NUR ---
BPCI letter and preferred provider list provided to patient, lives in home setting
--- NOTE | 2020-09-27 12:20 | HC ---
[facility] [place] [address] CONSULTATION Name: ELTON PAGAN Room #: 464-[facility] IN M.R.#: [id number] Admission: 09/23/20 Attend Phys: David Kumari Colten Discharge: 09/26/20 Date of : 52 Report #: [id number] THIS REPORT FOR: cc: PETER - Family physician unknown PETER - Family physician unknown Chris Reich MD ~ DATE OF SERVICE: 09/23/2020 WOUND CARE CONSULTATION PERSONAL PHYSICIAN: None. CHIEF COMPLAINT: Bilateral lower extremity cellulitis with venous insufficiency. HISTORY OF PRESENT ILLNESS: This is a 70-year-old white female who was admitted for chronic bilateral lower extremity edema and subsequent cellulitis. Supposedly, the patient has home health and the home health nurse was concerned about progressive drainage, warmth and redness of bilateral lower extremities, which prompted to send her to the Emergency Department to be evaluated. The patient herself is legally blind. Nursing staff have no other wound care concerns. PAST MEDICAL HISTORY: Significant for type 2 diabetes, legally blind, coronary artery disease, COPD, and hypertension. CURRENT MEDICATIONS: Multiple, I reviewed the patient's medication list. DRUG ALLERGIES: ASPIRIN. SOCIAL HISTORY: The patient smokes half pack of cigarettes a day for the past 40 years. Denies alcohol use. FAMILY HISTORY: Not pertinent to current medical condition. REVIEW OF SYSTEMS: CONSTITUTIONAL: The patient denies fevers or chills. NEUROLOGIC: The patient denies numbness, tingling, weakness in arms or legs. EYES: The patient is legally blind. ENT: No complaints. CARDIAC: The patient has chronic lower extremity edema, but denies chest pain or palpitation. RESPIRATORY: The patient denies shortness of breath, cough, wheezes. GASTROINTESTINAL: The patient denies nausea, vomiting or abdominal pain. GENITOURINARY: The patient denies urgency or frequency. MUSCULOSKELETAL: No complaints. [facility] [address] [place] [address] CONSULTATION Name: ELTON PAGAN Room #: 464-P [facility] IN [facility].#: [id number] Admission: 09/23/20 Attend Phys: David Abel Discharge: 09/26/20 Date of : 52 Report #: [id number] SKIN: The patient has open ulcerations with blisters on bilateral lower extremities. PHYSICAL EXAMINATION: VITAL SIGNS: Temperature 36.2, pulse 64, respirations 18, BP 151/81. GENERAL: This is alert and oriented x3, pleasant white female who is in no obvious distress. HEENT: Normocephalic, atraumatic. Mucous membranes are somewhat dry. NECK: Without JVD. LUNGS: Diminished breath sounds heard throughout. HEART: Regular. ABDOMEN: Soft, nontender. EXTREMITIES: The patient has 2-3+ edema bilateral lower extremities with increased erythema, warmth and bullous lesions on both lower extremities. Distal pulses are 1+. There is increased erythema, warmth and tenderness to bilateral lower extremities. NEUROLOGIC: Cranial nerves 2-12 are grossly intact. Motor and sensory are grossly intact. LABORATORY DATA: Venous insufficiency study shows no signs of lower extremity DVT. White count is 5.3, hemoglobin 13.1, BUN 27, creatinine 1.0, albumin is 2.1. IMPRESSION: 1. Chronic ulcerations, bilateral lower extremities, now with associated cellulitis. 2. Chronic venous insufficiency with edema. 3. Protein calorie malnutrition -- severe with albumin of 2.1. 4. Generalized debility. 5. Legally blind. PLAN: At this time, we will use morphine, Silvadene cream to both lower extremities, covered with Xeroform, ABD, Kerlix, and Deepak. The patient to elevate her legs as much as possible. We will make sure to maximize the patient's oral protein supplementation for healing. We will utilize physical and occupational therapy for strengthening. We will continue all other current medications. <ELECTRONICALLY SIGNED> By: Chris Reich MD 09/27/20 1220 1152 [id number] Chris Reich MD /nt
== END 2020-09-26 19:25 | disposition home health service (06) | DRG 602 ==
LOC: ER 12:26 → EROBS 09-23 00:32 → 4W 09-23 00:32 → EROBS 09-23 01:44 → 4W 09-23 02:32
PROVIDERS: Emergency Medicine; Nurse Practitioner Family; ADMIT Hospitalist; ATTEND Hospitalist
DX: L03.115 Cellulitis of right lower limb (principal); E43 Unspecified severe protein-calorie malnutrition; L97.929 Non-pressure chronic ulcer of unspecified part of left lower leg with unspecified severity; L97.919 Non-pressure chronic ulcer of unspecified part of right lower leg with unspecified severity; L03.116 Cellulitis of left lower limb; I10 Essential (primary) hypertension; E78.5 Hyperlipidemia, unspecified; I25.10 Atherosclerotic heart disease of native coronary artery without angina pectoris; J44.9 Chronic obstructive pulmonary disease, unspecified; E11.65 Type 2 diabetes mellitus with hyperglycemia; S81.802A Unspecified open wound, left lower leg, initial encounter; S81.801A Unspecified open wound, right lower leg, initial encounter; X58.XXXA Exposure to other specified factors, initial encounter; F17.210 Nicotine dependence, cigarettes, uncomplicated; I87.8 Other specified disorders of veins; H54.8 Legal blindness, as defined in USA; E11.42 Type 2 diabetes mellitus with diabetic polyneuropathy; Z20.822 Contact with and (suspected) exposure to COVID-19; Z79.84 Long term (current) use of oral hypoglycemic drugs; Z68.38 Body mass index [BMI] 38.0-38.9, adult; Z79.899 Other long term (current) drug therapy; Z88.8 Allergy status to other drugs, medicaments and biological substances; Y93.89 Activity, other specified; Y92.89 Other specified places as the place of occurrence of the external cause; Y99.8 Other external cause status
CPT/HCPCS: 10045

== ENCOUNTER 2020-09-27 08:42 | Inpatient (IN) | payer OTHER ==
[~2020-09-27] VITALS: Ht 144.8 cm; Wt 111.2 kg
[~2020-09-27 08:42] MED LIST changes: +CEFUROXIME500 MG PO; +SIMVASTATIN40 MG PO
[2020-09-27 08:45] VITALS: BP 180/105
--- NOTE | 2020-09-27 09:10 | NUR ---
PT IS ALERT AND ORIENTED X4, PT IS A POOR HISTORIAN BUT STATES SHE DOES LIVE AT HOME ALONE AND STATES SHE NORMALLY TAKES CARE OF HERSELF AND NOTES THAT SHE AMBULATES WITH A WALKER. WHEN ASKED ABOUT RECENT FALLS PT STATES "YA PROBABLY" PT IS LEGALLY BLIND, PT DENIES PAIN. PER EMS PT WAS UNABLE TO AMBULATE AT SCENE AT IT TOOK X4 PEOPLE TO GET HER UP. PT HAS EDEMA THROUGHOUT HER BODY AND 4+ EDEMA TO BLE. PT HAS WEAPING CELLULITIS TO BLE WITH DRESSINGS IN PLACE BUT AGAIN ARE SATURATED IN NATURE. PT WAS APPARENTLY ADMITTED LAST WEEK FOR CELLULITIS AND SEPSIS. PT IS AFEBRILE, SLIGHTLY TACHYCARDIC ON THE MONTIOR, RESPIRATIONS ARE EVEN AND UNLABORED. CALL LIGHT ENCOURAGED TO USE
[2020-09-27 09:14] LABS: BASOPHILS 0.4 % (0.0-2.0); EOSINOPHILS 1.1 % (0.0-3.0); HEMATOCRIT 39.6 % (37.0-47.0); HEMOGLOBIN 12.7 gm/dL (12.0-15.0); LYMPHOCYTES 16.6 % (24.0-44.0); MCH 28.1 pg (26.0-34.0); MCHC 32.1 g/dL (28.0-37.0); MCV 87.5 fL (80.0-100.0); MONOCYTES 9.7 % (1.0-8.0); PLATELET COUNT 198 thou/uL (150-400); POLYS 72.2 % (36.0-66.0); RBC 4.52 mil/uL (4.20-5.00); RDW 15.9 % (10.5-14.5); WBC 4.2 thou/uL (4.0-11.0)
[2020-09-27 09:19] LABS: ANION GAP 7 mmol/L (7-16); BUN 22 mg/dL (7-18); CALCIUM 8.5 mg/dL (8.5-10.1); CHLORIDE 114 mmol/L (98-107); CO2 28 mmol/L (21-32); CREATININE 0.9 mg/dL (0.6-1.0); GLUCOSE 134 mg/dL (74-106); SODIUM 149 mmol/L (136-145)
--- NOTE | 2020-09-27 09:24 | NUR ---
IN AND OUT CATHETER FOR UA. STERILE TECHNIQUE MAINTAINED. PT TOLERATED PROCEDURE WELL
[2020-09-27 09:28] LABS: URINE BILIRUBIN NEGATIVE (Negative); URINE BLOOD 3+ (Negative); URINE CLARITY SL CLOUDY; URINE COLOR YELLOW; URINE GLUCOSE-RANDOM* TRACE (Negative); URINE KETONES TRACE (Negative); URINE LEUKOCYTES-REFLEX NEGATIVE (Negative); URINE NITRITE-REFLEX NEGATIVE (Negative); URINE PROTEIN (DIPSTICK) 3+ (Negative); URINE SPECIFIC GRAVITY 1.025 (1.005-1.035); URINE UROBILINOGEN 0.2 E.U./dl (0.2-1.0)
[2020-09-27 09:29] LABS: ALBUMIN 2.1 g/dL (3.4-5.0); SGOT 22 U/L (15-37); SGPT 21 U/L (14-59); TOTAL BILIRUBIN 0.6 mg/dL (0.2-1.0); TROPONIN-I <0.06 ng/mL (<0.06)
[2020-09-27 09:40] LABS: CASTS None Seen /LPF (None Seen); SQUAMOUS >10 Many /LPF (0-3)
[2020-09-27 09:42] LABS: AMORPHOUS URATES Moderate /LPF (None Seen); BACTERIA-REFLEX 1-9 Few /HPF (None Seen); URINE RBC 1-2 Rare /HPF (NONE SEEN); URINE WBC-REFLEX 0-5 Rare /HPF (0-5)
--- NOTE | 2020-09-27 11:10 | EKG ---
[place] [address] [facility] [email or web address] [address] ELECTROCARDIOGRAM REPORT Name: ELTON PAGAN Room #: 170-10 ADM IN M.R.#: [id number] Admission: 09/27/20 Attend Phys: Zhang Fitzpatrick MD Discharge: Date of : 52 Report #: [id number] [facility] ED Test Date: 2020-09-27 Test Time: 08:52:19 Pat Name: ELTON PAGAN Department: Room: 170 Gender: F E Commerce Architect: JENNIFER : 1950 Requested By: Jomar Garcia Order Number: [id number] MD: Jeffrey Keith Measurements Intervals [place] Rate: 90 P: 64 DE: 132 QRS: 86 QRSD: 62 T: 7 QT: 368 QTc: 451 Interpretive Statements Sinus tachycardia Multiple premature complexes, vent & supraven Low voltage, extremity leads Baseline wander in lead(s) V6 Compared to ECG 08/17/2020 14:08:56 Sinus arrhythmia no longer present Ventricular premature complex(es) no longer present Prolonged QT interval no longer present Electronically Signed On 09-27-2020 11:10:50 CDT by Jeffrey Keith [email or web address] <ELECTRONICALLY SIGNED> By: Jeffrey Keith MD, FAC 09/27/20 1110 [id number] [id number] Jeffrey Keith MD, [facility] /EPI
[2020-09-27 15:04] VITALS: BP 167/100
[2020-09-27 15:22] VITALS: BP 180/105
[2020-09-27 16:45] VITALS: BP 162/95
[2020-09-27 19:57] VITALS: BP 136/90
[2020-09-28 04:46] LABS: ABSOLUTE NEUTROPHILS 2.1 thou/uL (1.4-8.2); BASOPHILS 0.5 % (0.0-2.0); EOSINOPHILS 1.5 % (0.0-3.0); HEMATOCRIT 37.4 % (37.0-47.0); HEMOGLOBIN 12.3 gm/dL (12.0-15.0); LYMPHOCYTES 28.5 % (24.0-44.0); MCH 28.8 pg (26.0-34.0); MCHC 32.9 g/dL (28.0-37.0); MCV 87.4 fL (80.0-100.0); PLATELET COUNT 196 thou/uL (150-400); POLYS 58.5 % (36.0-66.0); RBC 4.28 mil/uL (4.20-5.00); WBC 3.6 thou/uL (4.0-11.0)
--- NOTE | 2020-09-28 05:00 | NUR ---
Assumed pt care at 1900. A/OX3,VSS. C/o pain 04/27 on assessment. Wound pictures to BLE taken and BLE rewrapped. Excoriation noted under pannus/breasts;area red and moist. Incontinent of bladder this shift. Pt is legally blind and needs reminders to call for help as needed.Fall precautions in place,frequent checks on pt.
[2020-09-28 05:50] LABS: CALCIUM 8.3 mg/dL (8.5-10.1); CREATININE 0.9 mg/dL (0.6-1.0); MAGNESIUM 1.4 mg/dL (1.8-2.4); POTASSIUM 4.2 mmol/L (3.5-5.1)
[2020-09-28 07:19] VITALS: BP 165/99
[2020-09-28] MEDS ORDERED: NEURONTIN 300M300 M2 PO (09:00)
--- NOTE | 2020-09-28 09:13 | NUR ---
Assess due to notification of pt with cellulitis and vascular wounds. Recent discharge from rehab unit, now readmitted. Hx CHI, cva, legallly blind, radial nerve palsy. Dysphagia identified by ST and pt requires modified diet and liquids with swallow precautions and 100% feed assist. Tolerating meals. Also cognitive concerns. Wts difficult to assess, 180-263 lb ? and bedscale today 233. Na/cl elevated, may need ivf. Physician has indicated severe protein calorie malnutrition: RD will defer. Low nutrition risk with appropriate nutrition interventions in place.
--- NOTE | 2020-09-28 09:18 | NUR ---
Na/Cl levels significantly elevated, may need IVF.
[2020-09-28 11:42] VITALS: BP 165/99
--- NOTE | 2020-09-28 12:45 | NUR ---
PT READMITTED RELATED TO PNEUMONIA, WEAKNESS, AND ANASARCA. PT DISCHARGED SATURDAY HOME WITH HCBS CAREGIVER SERVISED 8-12 M-F AND [facility]. PT READMITED THE NEXT MORNING. JEET SPOKE WITH SIMRAN LEVIN AT HER HCBS PROVIDER [facility] AND SHE INDICATED THAMichelet BENZ AND STACEY DIDNN'T THINK THAT PT IS SAFE TO BE AT HER CA APARTMENT AT [facility] ANY LONGER. CM INDICATED THAT REC IS FOR AT LEAST SHORT TERM SKILLED REHAB AND LIKELY LTC. CM SPOKE WITH PT AND SHE IS AGREEABLE WITH AT LEAST SNF. PT DIDN'T CONVEY A PREFERANCE CM TO REACH OUT TO STACEY.
--- NOTE | 2020-09-28 12:52 | NUR ---
Pt is a blind nonambultory obese 70 year old female pt. who had been living with home health prior to this previous visit. She has Pneumonia with diminished lung sounds and non productive cough. She has BLE cellulitus with wounds to both thr right on calf and left on anterior LE. Wound care orders followed and pictures taken. Pt has not c/o pain today. She did have a large formed brown BM. She is incontinent of urine. She has redness under pannus. Turned q 2 hours to prevent further skin breakdown. Bed in low position and fall precautions in place. Call light within reach. Will Monitor until end of shift.
[2020-09-28 17:19] VITALS: BP 128/77
[2020-09-28 20:52] VITALS: BP 109/63
--- NOTE | 2020-09-29 04:18 | NUR ---
Assumed pt carea at 1900. A/OX3,but able to voice needs. VSS.Denies pain on assessment. Up with AX1,RW/GB,slow gait. Generalized edema allover,encouraged to keep extremities elevated. Dsgs to BLE intact and dry. Incontinent of bladder,continent ob bowel this shift. SA on telemetry,asymptomatic. Fall precautions in place,frequent checks on pt. Resting queitly w/o any distress noted,will continue to monitor pt.
[2020-09-29 10:59] VITALS: BP 126/66
--- NOTE | 2020-09-29 11:25 | NUR ---
CM SPOKE WITH MINA AT [facility] AND SHE INDICATED THEY CAN ACCEPT PT LONG SHE IS AGREEABEL TO NOT SMOKE. CM FOLLOWED UP WITH [facility] AND THEY ARE STILL REVIEWING. PT WOULD BE ABLE TO SMOKE AT [facility] IF ACCEPTED THERE. CM HOPING THAT PT CAN PICK BETWEEN THE TWO. CM FOLLOWING WITH DC PLANNING.
[2020-09-29] MEDS ORDERED: LEVOFLOXACIN750 MG PO (13:57)
[2020-09-29] MEDS ORDERED: ENOXAPARIN40 MG/0.1 SUBQ (13:57)
[2020-09-29] MEDS ORDERED: ACETAMINOPHEN325 M1 PO (13:57)
[2020-09-29] MEDS ORDERED: NICOTINE PATCH1 EAC3 TRANSDERM (13:57)
[2020-09-29] MEDS ORDERED: MIRALAX17 GM PO (13:57)
--- NOTE | 2020-09-29 14:23 | NUR ---
ASSUMED PT CARE THIS AM. PT A&OX3, ABLE TO MAKE NEEDS KNOWN. PATIENT REMAINS INCONTINENT. PATIENT HAS SOME WEKANESS NOTED WITH MOBILITY. GENERALIZED EDEMA NOTED. MEDICATIONS TAKEN WELL WITH APPLESAUCE. PATIENT REMAINS ON TELE. ON ROOM AIR. PATIENT REPORTING NO PAIN, NUMBNESS, OR TINGLING. FALL PRECAUTIONS ARE IN PLACE, CALL LIGHT WITHIN REACH.
--- NOTE | 2020-09-29 15:55 | HC ---
[facility] [place] [address] CONSULTATION Name: ELTON PAGAN Room #: 452- ADM IN M.R.#: [id number] Admission: 09/27/20 Attend Phys: Zhang Fitzpatrick MD Discharge: Date of : 52 Report #: [id number] THIS REPORT FOR: cc: FAM - Family physician unknown FAM - Family physician unknown Chris Reich MD ~ DATE OF SERVICE: 09/28/2020 WOUND CARE CONSULTATION REASON FOR CONSULTATION: Bilateral lower extremity venous insufficiency ulcerations with surrounding cellulitis. HISTORY OF PRESENT ILLNESS: This is a 70-year-old white female who was just discharged 2 days ago from the hospital status post cellulitis to bilateral lower extremities with associated venous stasis ulcerations. The patient was discharged to home with home health. Nurse came in and felt that the patient was too weak to be at home and was sent back to the hospital. We have been asked to follow the patient once again for the lower extremity ulcerations. PAST MEDICAL HISTORY: Significant for type 2 diabetes, hypertension, chronic venous insufficiency with edema, coronary artery disease, COPD, generalized debility with frequent falls, tobacco abuse, history of severe protein-calorie malnutrition with last albumin was 2.1. CURRENT MEDICATIONS: Multiple, I reviewed the patient's medication list. DRUG ALLERGIES: ASPIRIN. SOCIAL HISTORY: The patient has history of tobacco use. FAMILY HISTORY: Not pertinent to current medical condition. REVIEW OF SYSTEMS: CONSTITUTIONAL: The patient denies actual fevers or chills. NEUROLOGIC: The patient complains of generalized weakness and inability to ambulate. EYES: No complaints. EARS, NOSE AND THROAT: No complaints. CARDIAC: The patient has chronic lower extremity edema. Denies chest pain or palpitations. RESPIRATORY: The patient denies shortness of breath, cough, wheezes. GASTROINTESTINAL: The patient denies nausea, vomiting, abdominal pain. GENITOURINARY: The patient denies urgency or frequency. MUSCULOSKELETAL: No complaints. SKIN: There is chronic ulcerations, bilateral lower extremities with bullous [facility] [address] [place] [address] CONSULTATION Name: SUNITA PAGANTTE Room #: [address] [place] [address] IN M.R.#: [id number] Admission: 09/27/20 Attend Phys: Zhang Fitzpatrick MD Discharge: Date of : 52 Report #: [id number] lesions on the right lower extremity. PHYSICAL EXAMINATION: VITAL SIGNS: Temperature 36.6, pulse 50, respirations 20, BP 165/99. GENERAL: This is alert and oriented x2 person and place, not time, chronically ill-appearing white female. HEENT: Normocephalic, atraumatic. Mucous membranes are dry. Pupils are round. Sclerae white. NECK: Without JVD. LUNGS: Show diminished breath sounds heard throughout. HEART: Regular. ABDOMEN: Soft, nontender. EXTREMITIES: The patient has 2+ edema bilateral lower extremities. There is venous stasis ulcer on the left, which is a mix of granulation and slough with mild erythema and warmth. Slight tenderness. There are bullous lesions on the right lower extremity, which are erythematous and tender to palpation. Distal pulses are 1+. Bilateral heels are intact. NEUROLOGIC: Cranial nerves II-XII grossly intact. Motor and sensory grossly intact. LABORATORY DATA: White count 3.6, hemoglobin 12.3. BUN 21, creatinine 0.9, albumin 2.1. IMPRESSION: 1. Cellulitis, bilateral lower extremities with bullous lesions to the right lower extremity and venous stasis ulcerations to the left lower extremity. 2. Diabetes mellitus type 2. 3. Hypertension. 4. Coronary artery disease. 5. Chronic obstructive pulmonary disease. 6. Generalized weakness from frequent falls. 7. History of tobacco abuse. 8. Severe protein-calorie malnutrition, albumin 2.1. PLAN: We will restart morphine, Silvadene cream, Xeroform, ABD, Kerlix, Deepak to the bilateral lower extremities with elevation of the lower extremity as much as possible. PT and OT to evaluate the patient for generalized debility and strengthening. Cessation counseling for her tobacco abuse. We will maximize the patient's oral nutrition as able for healing. We will continue all other current medications. <ELECTRONICALLY SIGNED> By: Chris Reich MD 09/29/20 1555 [id number] Chris Reich MD /nt
--- NOTE | 2020-10-03 15:05 | HC ---
[facility] [place] [address] [address] CONSULTATION Name: ELTON PAGAN Room #: 452-[facility] IN M.R.#: [id number] Admission: 09/27/20 Attend Phys: Zhang Fitzpatrick MD Discharge: 09/29/20 Date of : 52 Report #: [id number] THIS REPORT FOR: cc: FAM - Family physician unknown FAM - Family physician unknown Jomar James MD ~ HISTORY OF PRESENT ILLNESS: The patient is a 70-year-old white female, previously known to me, who is on the acute inpatient rehabilitation clements from 08/19/2020-08/25/2020. She had a right wrist drop at that point along with gait instability with falls. She was able to progress in therapies and was ambulating 130 feet standby assistance with a 4-wheeled walker with moderate cognitive and moderate to severe memory deficits. She was able to return back to her apartment with a caregiver 5 days a week, 4 hours a day. Since that time, however, her course has been complicated by cellulitis of bilateral lower extremities and further decline in her function. She was recently admitted for another hospitalization with cellulitis of bilateral lower extremities, was discharged to her apartment on 09/26/2020 and ended up being readmitted again on 09/27/2020. We are seeing her in rehabilitation medicine consultation. 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 Neurology had seen her prior and the recommendation was for an outpatient EMG. She has bilateral lower extremity cellulitis. She is congenitally blind. Non-ST elevation [place], exogenous obesity. There is a prior history of a CVA, diabetes mellitus type 2, hypertension, and COPD. MEDICATIONS: Please see the full medication listing. ALLERGIES: ASPIRIN. SOCIAL HISTORY: She has been living in her own apartment with the caregiver as noted above. She was using a 4-wheeled walker. REVIEW OF SYSTEMS: No current complaints of chest pain, shortness of breath, or abdominal discomfort. PHYSICAL EXAMINATION: GENERAL: A 70-year-old white female in no obvious distress. VITAL SIGNS: Temperature 36.6, pulse 50, respirations 20, and blood pressure 165/99. NEUROLOGIC: The patient is alert. She is oriented, limited historian, legally blind, and has poor dentition. Facies appeared symmetric. She is pleasant, obese. She is 4 feet 9 inches and weighs 237 pounds. She has the right wrist weakness in extension. This weakness appears similar to her prior exam. She has decreased range of motion of both upper extremities. Tone otherwise appeared to be intact. Strength is otherwise probably a grade 3+ to 4-/5. In [address] [address] CONSULTATION Name: ELTON PAGAN Room #: 452-P DIS IN M.R.#: [id number] Admission: 09/27/20 Attend Phys: Zhang Fitzpatrick MD Discharge: 09/29/20 Date of : 52 Report #: [id number] the lower extremities, she has distal lower extremity edema, significant redness with some residual cellulitis, and has wrapping of both lower extremities. She has a large abdominal pannus hanging over her proximal lower extremities. Strength of the lower extremities is probably only a grade 3+/5 and is somewhat difficult to staple laster. I do not see that she has gotten up with physical therapy as of yet during this admission. ASSESSMENT: A 70-year-old white female with the following problem list: 1. Generalized weakness. She has returned back to the hospital after just going home. 2. Bilateral lower extremity cellulitis. 3. Chronic venous stasis dermatitis. 4. Peripheral arterial disease. 5. Diabetes mellitus type 2. 6. Hypertension. 7. Severe protein-calorie malnutrition. 8. Chronic obstructive pulmonary disease. 9. Hyperlipidemia. 10. Exogenous obesity. PLAN: The patient is not a candidate for another acute [address] [place] [address] Inpatient Rehabilitation stay. Case management input is noted as they have been in contact with her caregivers and she is not felt to be safe to continue at her independent living apartment anymore. They are recommending skilled and likely long-term care. Discussed with the patient the recommendations that a skilled level of care would be beneficial for her and she does appear amenable now. Agree with case management, looking at retirement facility options. Thank you for asking us to assist in this patient's care. <ELECTRONICALLY SIGNED> By: Jomar James MD 10/03/20 1505 [id number] Jomra James MD /nt
== END 2020-09-29 18:20 | DRG 193 ==
LOC: ER 08:42 → EROBS 10:18 → 4W 10:18 → EROBS 13:35 → 4W 15:55
PROVIDERS: Emergency Medicine; Nurse Practitioner; ADMIT Internal Medicine; ATTEND Internal Medicine
DX: J18.9 Pneumonia, unspecified organism (principal); E43 Unspecified severe protein-calorie malnutrition; L03.116 Cellulitis of left lower limb; E87.1 Hypo-osmolality and hyponatremia; L97.929 Non-pressure chronic ulcer of unspecified part of left lower leg with unspecified severity; L97.919 Non-pressure chronic ulcer of unspecified part of right lower leg with unspecified severity; Z68.43 Body mass index [BMI] 50.0-59.9, adult; M31.9 Necrotizing vasculopathy, unspecified; L03.115 Cellulitis of right lower limb; J44.9 Chronic obstructive pulmonary disease, unspecified; Z20.822 Contact with and (suspected) exposure to COVID-19; I10 Essential (primary) hypertension; I27.20 Pulmonary hypertension, unspecified; I87.2 Venous insufficiency (chronic) (peripheral); I25.10 Atherosclerotic heart disease of native coronary artery without angina pectoris; E11.51 Type 2 diabetes mellitus with diabetic peripheral angiopathy without gangrene; R62.7 Adult failure to thrive; E78.5 Hyperlipidemia, unspecified; F17.210 Nicotine dependence, cigarettes, uncomplicated; R53.81 Other malaise; E66.01 Morbid (severe) obesity due to excess calories; H54.8 Legal blindness, as defined in USA; Z86.73 Personal history of transient ischemic attack (TIA), and cerebral infarction without residual deficits; Z88.6 Allergy status to analgesic agent; I25.2 Old myocardial infarction; Z71.6 Tobacco abuse counseling; Z79.899 Other long term (current) drug therapy
CPT/HCPCS: 10045

== ENCOUNTER 2021-02-20 12:35 | Inpatient (IN) | payer OTHER ==
[~2021-02-20] VITALS: Ht 121.9 cm; Wt 74.4 kg
--- NOTE | ~2021-02-20 | EMS ---
[address] [address] EMS Patient Care Report Name: ELTON PAGAN Room #: 442-P ADM IN M.R.#: [id number] Admission: 02/20/21 Attend Phys: Zhang Fitzpatrick MD Discharge: Date of : 52 Report #: [id number] THIS REPORT FOR: //name// Report Transmitted: 02/27/2021 06:08 EMS Care Summary [place], [place]/[facility] Incident [id number] @ 02/20/2021 11:23 Incident Location [facility] Patient ELTON PAGAN Female, 70 Years 1950 Patient Address [address] [place] [address] Patient History Other,Diabetes,Hypertension (HTN),Hyperlipidemia,Neuropathy,Cellulitis, Patient Allergies Aspirin, Patient Medications Insulin, Lovenox, Furosemide, Metoprolol, Gabapentin, Losartan, Simvastatin, Glimepiride, Chief Complaint Cellulitis and sores on leg Disposition Transported No Lights/[place] Dispatch Reason Falls Transported To [facility] Narrative Called to the scene for a fall. Upon arrival, P42 on the scene. Pt was RAIN x 3 sitting on the floor, neighbor had called for her. She c/o no injuries and [address] [address] EMS Patient Care Report Name: ELTON PAGAN Room #: 442-P ADM IN [place]#: [id number] Admission: 02/20/21 Attend Phys: Zhang Fitzpatrick MD Discharge: Date of : 51 Report #: [id number] does not appear to be injured; however she appears to have severe cellulitis on both of her lower extremities with puss coming out of the left. She c/o of pain on the right. She was moved to the EMS cot and loaded into the ambulance w/o incident. Vitals obtained. Attempted IV x 2. D-stick. Vitals repeated. En route: no changes. RR to the ER. arrived: pt taken to triage, pt care & report to ER staff. Initial Vitals @11:57P: 82,CO: 1,SpO2: 95, @11:46P: 77,R: 18,BP: 136/78,Pain: 4/10,GCS: 15,Glucose: 359,CO: 1,SpO2: 97,Revised Trauma: 12, @12:02P: 76,R: 18,BP: 134/85,Pain: 4/10,GCS: 15,SpO2: 96,Revised Trauma: 12, Assessments @11:36MENTAL:Person Oriented,Time Oriented,Event Oriented,Place Oriented,SKIN:Other,HEENT:Eyes: Right: Blind,Eyes: Left: Blind,Head/Face: No Abnormalities,Neck/Airway: No Abnormalities,LUNG SOUNDS:General: No Abnormalities,ABDOMEN:General: No Abnormalities,PELVIS//GI:No Abnormalities,EXTREMITIES:Right Leg: Weakness,Right Leg: Other,Left Leg: Other,Capillary Refill: Left Upper: < 2 Sec,Left Leg: Edema,Right Leg: Edema,Left Arm: No Abnormalities,Right Arm: No Abnormalities,PULSE:Radial: 2+ Normal,NEURO:No Abnormalities, Impression Cellulitis Procedures @11:36 ALS Assessment Response: UnchangedSucceeded @12:15 Stretcher Response: Unchanged @12:15 IV Therapy - Saline Lock cc (18 ga) Site: Forearm-Left Response: UnchangedFailed @12:15 IV Therapy - Saline Lock cc (20 ga) Site: Hand-Left Response: UnchangedFailed Timeline 11:19,Call Received 11:19,Dispatch Notified 11:23,Dispatched 11:23,En Route 11:34,On Scene 11:36,At Patient 11:36,ALS Assessment,Response: UnchangedSucceeded, 11:46,BP: 136/78 M,PULSE: 77,RR: 18 R,SPO2: 97 Ox,ETCO2: ,B,PAIN: 4,GCS: 15, 11:57,BP: / M,PULSE: 82,RR: R,SPO2: 95 Ox,ETCO2: ,BG: ,PAIN: ,GCS: , [facility] [address] [place] [address] EMS Patient Care Report Name: ELTON PAGAN Room #: 442-P ADM IN M.R.#: [id number] Admission: 02/20/21 Attend Phys: Zhang Fitzpatrick MD Discharge: Date of : 51 Report #: [id number] 12:02,BP: 134/85 M,PULSE: 76,RR: 18 R,SPO2: 96 Ox,ETCO2: ,BG: ,PAIN: 4,GCS: 15, 12:10,Depart Scene 12:15,Stretcher,Response: Unchanged 12:15,IV Therapy - Saline Lock cc 18 ga Site: Forearm-Left,Response: UnchangedFailed, 12:15,IV Therapy - Saline Lock cc 20 ga Site: Hand-Left,Response: UnchangedFailed, 12:23,At Destination 12:52,Call Closed Disclaimer v1.1 Copyright 2021 [employer] This EMS Care Summary contains data elements from the applicable legal record (which may be displayed differently). It is designed to provide pertinent information for the following purposes: continuity of care, clinical quality, and state data reporting. The complete legal record is available to ED staff and administrators of the receiving hospital in [employer]'s Patient Tracker. All data is provided "as is."
[2021-02-20 12:35] VITALS: BP 140/71
[~2021-02-20 12:35] MED LIST changes: +ACETAMINOPHEN325 M1 PO; +ENOXAPARIN40 MG/0.1 SUBQ; +LEVOFLOXACIN750 MG PO; +MIRALAX17 GM PO; +NICOTINE PATCH1 EAC3 TRANSDERM
[2021-02-20 20:55] LABS: ABSOLUTE NEUTROPHILS 2.6 thou/uL (1.4-8.2); BASOPHILS 0.6 % (0.0-2.0); EOSINOPHILS 2.6 % (0.0-3.0); HEMATOCRIT 39.2 % (37.0-47.0); HEMOGLOBIN 12.3 gm/dL (12.0-15.0); LYMPHOCYTES 22.2 % (24.0-44.0); MCH 27.9 pg (26.0-34.0); MCHC 31.5 g/dL (28.0-37.0); MCV 88.7 fL (80.0-100.0); MONOCYTES 9.8 % (1.0-8.0); PLATELET COUNT 184 thou/uL (150-400); POLYS 64.8 % (36.0-66.0); RBC 4.41 mil/uL (4.20-5.00); RDW 16.7 % (10.5-14.5)
[2021-02-20 20:59] LABS: CALCIUM 9.1 mg/dL (8.5-10.1); CREATININE 1.2 mg/dL (0.6-1.0); POTASSIUM 5.3 mmol/L (3.5-5.1)
[2021-02-20 21:09] LABS: ALBUMIN 2.5 g/dL (3.4-5.0); TOTAL BILIRUBIN 0.6 mg/dL (0.2-1.0); TOTAL PROTEIN 7.5 g/dL (6.4-8.2)
[2021-02-20 22:30] LABS: URINE BILIRUBIN NEGATIVE (Negative); URINE BLOOD TRACE (Negative); URINE CLARITY CLOUDY; URINE COLOR YELLOW; URINE GLUCOSE-RANDOM* 1+ (Negative); URINE KETONES NEGATIVE (Negative); URINE LEUKOCYTES-REFLEX TRACE (Negative); URINE NITRITE-REFLEX NEGATIVE (Negative); URINE PROTEIN (DIPSTICK) 3+ (Negative); URINE SPECIFIC GRAVITY >= 1.030 (1.005-1.035); URINE UROBILINOGEN 0.2 E.U./dl (0.2-1.0)
[2021-02-20 22:40] LABS: BACTERIA-REFLEX >30 Many /HPF (None Seen); CASTS None Seen /LPF (None Seen); CRYSTALS None Seen /LPF (None Seen); MUCUS 0-3 Light strn/LPF (None Seen); SQUAMOUS 0-3 Few /LPF (0-3); URINE RBC 1-2 Rare /HPF (NONE SEEN); URINE WBC-REFLEX 6-15 Few /HPF (0-5)
[2021-02-21 07:36] LABS: HEMATOCRIT 36.5 % (37.0-47.0); HEMOGLOBIN 11.5 gm/dL (12.0-15.0); MCH 27.8 pg (26.0-34.0); MCHC 31.6 g/dL (28.0-37.0); MCV 87.8 fL (80.0-100.0); RBC 4.16 mil/uL (4.20-5.00); RDW 16.2 % (10.5-14.5); WBC 3.9 thou/uL (4.0-11.0)
[2021-02-21 07:43] LABS: CALCIUM 8.7 mg/dL (8.5-10.1); CREATININE 1.2 mg/dL (0.6-1.0); POTASSIUM 5.6 mmol/L (3.5-5.1)
[2021-02-21 16:43] VITALS: BP 118/70
--- NOTE | 2021-02-21 16:59 | NUR ---
70 year old female presents to the ED via EMS on 02-20-21 for an unwitnessed fall in the AM. Reportedly her neighbor came by to check and found patient on the floor. Patient reports was trying to move around a kitchen table and lost her balance and fell onto a tile floor. Patient was found unkept and soiled in urine and feces and is notably blind and lives on her own with Home Health. The patient has been admitted for recurrent bilateral LE cellulitis, Sepsis, recurrent hospitalization for failure to thrive, morbid obesity and Chronic venous stasis dermatitis. Per the ED patient notes vaccinated and per ID NOW is negative. Therapy orders have been placed, along with consults for ID and Wound care. Notably patient last discharged on 09-29-20 to [facility]. Friend and career development specialist Es Wynn at [phone]. Attempted to reach Es without success. CM will follow per MD findings along with therapy evaluations. Anticipate possible SNF upon completion of medical work up and therapy recommendations. CM will follow for discharge needs.
[2021-02-21 20:24] VITALS: BP 123/74
--- NOTE | 2021-02-21 20:35 | NUR ---
PATIENT TO THE UNITS, PATIENT IS BLIND,HAD A BIG BM. WOUND PICTURES TAKEN. CALL LIGHT WITHIN REACH, WILL CONTINOUS MONITORING.
--- NOTE | 2021-02-22 05:54 | NUR ---
PT ORIENTED TO ROOM AND UNIT POLICIES. PT IS ORIENTED TO SELF, UNSURE OF DATE, PLACE, OR SITUATION. VERY FORGETFUL. TWO LARGE BOWEL MOVEMENTS THIS SHIFT- PT IS INCONTINENT OF BOWEL AND BLADDER. MULTIPLE WOUNDS PRESENTS ON BLE, ARJUN- AREA, AND BOTTUM. OFELIA WOUNDS DRESSED WITH MEPILEX FOAMS. BLE WOUNDS CLEASED WITH SALINE AND WRAPPED IN GAUZE. NEW IV PLACED IN R. HAND- FLUIDS INFUSING PER ORDERS. 3+ EDEMA NOTED IN BLE, ABD, ARMS, AND HANDS- REQUEST TO REDUCE FLUIDS DEFERRED TO DAY TEAM. WILL CONT. TO MONITOR AND FOLLOW PLAN OF CARE PT IS WILLING
[2021-02-22 08:00] VITALS: BP 135/78
--- NOTE | 2021-02-22 10:36 | HC ---
[facility] [place] [address] [address] CONSULTATION Name: ELTON PAGAN Room #: 442- ADM IN M.R.#: [id number] Admission: 02/20/21 Attend Phys: Zhang Fitzpatrick MD Discharge: Date of : 51 Report #: [id number] THIS REPORT FOR: cc: FAM - Family physician unknown FAM - Family physician unknown Fede Stewart MD ~ DATE OF SERVICE: 02/21/2021 CHIEF COMPLAINT: Cellulitis bilateral lower extremities and ulceration right posterior thigh. HISTORY OF PRESENT ILLNESS: This is a 70-year-old female patient who is being seen here in the Emergency Department. She is morbidly obese with bilateral lower extremity cellulitis and type 2 diabetes mellitus. She reported to the Emergency Department after having fallen at home. I have been asked to see her with regard to wound care for an ulcer on her right posterior thigh as well as cellulitis of her legs. She has moderate pain, is able to stand with a little bit of assistance. PAST MEDICAL HISTORY: Positive for history of recurring cellulitis, she is blind, type 2 diabetes mellitus and COPD. SOCIAL HISTORY: The patient is an occasional cigarette smoker, no alcohol use. FAMILY HISTORY: Noncontributory. MEDICATIONS: Include Lasix, metoprolol, oxybutynin, gabapentin, trazodone, albuterol, glimepiride, simvastatin, losartan, Lovenox, polyethylene glycol, nicotine patch, levofloxacin, and cholecalciferol. ALLERGIES: ASPIRIN. FAMILY HISTORY: Noncontributory. REVIEW OF SYSTEMS: CONSTITUTIONAL: The patient denies fever, chills or weight loss. NEUROLOGICAL: The patient denies focal weakness. EYES: The patient is blind, but no new visual changes. ENT: The patient denies earache, nasal drainage, or sore throat. CARDIOVASCULAR: The patient denies chest pain, palpitations, diaphoresis. PULMONARY: The patient denies cough or shortness of breath. GASTROINTESTINAL: The patient denies nausea, vomiting, diarrhea or abdominal pain. ORTHOPEDIC: The patient complains of pain, swelling and redness to her lower extremities. [facility] [address] [place] [address] CONSULTATION Name: ROBER PAGANANETTE Room #: 442-P ADM IN M.R.#: [id number] Admission: 02/20/21 Attend Phys: Zhang Fitzpatrick MD Discharge: Date of : 51 Report #: [id number] Others systems in a 14-point review of systems are negative. PHYSICAL EXAMINATION: VITAL SIGNS: The patient's vital at this time include temperature 98.5, pulse 84, respiratory rate 14, blood pressure 112/52. GENERAL: This is a chronically ill-appearing female patient who appears to be in mild discomfort. HEENT: Head normocephalic. Nose and throat are clear. NECK: Supple. LUNGS: Diminished. HEART: Irregular. ABDOMEN: Obese, soft, nontender. EXTREMITIES: Lower extremities demonstrates cellulitis with some evidence of venous stasis dermatitis bilateral lower extremity, cellulitis greater on the left than on the right. There is a stage 3 pressure ulceration to the right posterior thigh. It is relatively shallow. Dermal layer is exposed. It is not infected. NEUROLOGIC: The patient is alert, does move all 4 extremities. Able to stand with assistance. LABORATORY STUDIES: Include sodium 142, potassium 5.3, chloride 108, CO2 of 28, BUN 43, creatinine 1.2, glucose 245, albumin is low at 2.5. White blood cell count 4000, hemoglobin of 12.3. CLINICAL IMPRESSION: 1. Cellulitis, bilateral lower extremities. 2. Stage 3 pressure ulcer on right posterior thigh. 3. Urinary tract infection. 4. Type 2 diabetes mellitus. 5. Chronic obstructive pulmonary disease. 6. Morbid obesity. RECOMMENDATIONS: At this point in time, we will recommend and agree with intravenous antibiotics as have already been initiated. We will recommend AmLactin lotion to the legs, but manage the edema with simple elevation presently. Once some of the cellulitis seems to improve, we will initiate some compression as well. Recommend moisture barrier cream to the right posterior thigh area. Continue with other medical management and aggressive nutritional support. I appreciate being asked to see her in consultation. <ELECTRONICALLY SIGNED> By: Fede Stewart MD 02/22/21 1036 [id number] Fede Stewart MD /nt
--- NOTE | 2021-02-22 10:52 | NUR ---
PT HAS CRITICAL LAB VALUE: PTT OF 119.8. DR RODRIGUEZ NOTIFIED. VITAL SIGNS WNL. WILL CONTINUE TO MONITOR PT.
[2021-02-22 12:34] VITALS: BP 142/87
[2021-02-22 20:05] VITALS: BP 145/70
[2021-02-22 21:52] LABS: APTT 32.2 Seconds (24.5-32.8); INR 1.05; PROTIME 11.4 Seconds (10.5-12.1)
[2021-02-23 04:51] VITALS: BP 124/62
[2021-02-23 07:15] VITALS: BP 112/59
[2021-02-23 08:39] LABS: HEMATOCRIT 36.2 % (37.0-47.0); MCH 27.3 pg (26.0-34.0); MCHC 30.3 g/dL (28.0-37.0); MCV 90.3 fL (80.0-100.0); RBC 4.01 mil/uL (4.20-5.00); RDW 16.8 % (10.5-14.5); WBC 3.9 thou/uL (4.0-11.0)
[2021-02-23 08:43] LABS: CALCIUM 8.7 mg/dL (8.5-10.1); CREATININE 1.5 mg/dL (0.6-1.0); POTASSIUM 5.6 mmol/L (3.5-5.1)
--- NOTE | 2021-02-23 10:07 | NUR ---
ASSUMED CARE OF PT AT 0700 THIS MORNING. PT IS A/O TO SELF, LOCATION AND SITUATION WITH CONFUSION. BANDAGES OM BILAT LE AND BACK C/D/I. PT HAS 4+ EDEMA IN ALL 4 EXTREMETIES AND ABD IS DISTENDED WITH WEEPING FLUID. STOPPED IV AND CALLED DR. RODRIGUEZ. HE DC'D FLUIDS AT THIS TIME. ASSESSMENTS NOTED IN CHART AND OTHERWISE UNREMARKABLE. FALL PRECAUTIONS IN PLACE DUE TO WOUNDS AND BLINDNESS. CALL LIGHT AND OTHER NEEDS ARE IN REACH. MEDS AND TX GIVEN NEEDED AND SCHEDULED. WILL CONTINUE TO MONITOR AND NOTE ANY CHANGES.
[2021-02-23 15:16] VITALS: BP 117/50
--- NOTE | 2021-02-23 18:03 | NUR ---
Met with patient she reside at home in [facility]. Patient has homemaker HBC[facility] 2-3 hours a day 4 days a week. patient uses a walker in home. [facility] on service. Patient is legally blind. Sp with "adopted" dtr Es. Reviewed role of casemgt and need for post acute care. Referrals to [facility] where patient has been in the past.
[2021-02-23 22:13] VITALS: BP 120/47
[2021-02-24 04:01] LABS: HEMATOCRIT 35.1 % (37.0-47.0); HEMOGLOBIN 10.9 gm/dL (12.0-15.0); MCV 90.3 fL (80.0-100.0); RBC 3.89 mil/uL (4.20-5.00); RDW 16.9 % (10.5-14.5); WBC 3.2 thou/uL (4.0-11.0)
[2021-02-24 04:54] LABS: ALBUMIN 2.2 g/dL (3.4-5.0); CALCIUM 8.3 mg/dL (8.5-10.1); CREATININE 1.5 mg/dL (0.6-1.0); MAGNESIUM 2.1 mg/dL (1.8-2.4); POTASSIUM 5.8 mmol/L (3.5-5.1); TOTAL BILIRUBIN 0.4 mg/dL (0.2-1.0); TOTAL PROTEIN 6.4 g/dL (6.4-8.2)
[2021-02-24 07:27] VITALS: BP 126/73
--- NOTE | 2021-02-24 07:34 | NUR ---
NO ACUTE EVENTS THIS SHIFT. PT IS ORIENTED TO SELF AND PLACE BUT VERY FORGETFUL. PAIN MANGED WITH PRN MEDICATION. WOUNDC CLEANED & REDRESSED PER ORDERS. PT REMAINS EXTREMELY EDEMATOUS.
[2021-02-24 16:04] VITALS: BP 142/86
--- NOTE | 2021-02-24 17:38 | NUR ---
referrals to [facility] and [facility]. Left message with admissions no weekend dc as patient neesds irena placememt
[2021-02-24 20:29] VITALS: BP 150/79; BP 199/109
[2021-02-25 06:11] LABS: HEMATOCRIT 36.3 % (37.0-47.0); HEMOGLOBIN 11.2 gm/dL (12.0-15.0); MCH 27.9 pg (26.0-34.0); MCHC 30.8 g/dL (28.0-37.0); MCV 90.7 fL (80.0-100.0); RDW 16.8 % (10.5-14.5); WBC 3.6 thou/uL (4.0-11.0)
--- NOTE | 2021-02-25 06:11 | NUR ---
PATIENT A0X1 CONFUSED AND FORGETFUL. PATIENT IS CALM AND COOPERATIVE WITH CARE AND MEDS. PATIENT NEEDS MAXIMUM ASSIST X1/2 WITH ADL, BED TRANSFER, TOILETING AND TRANSFERS. PATIENT IS COMPLETELY BLIND. PATIENT HAS GENERALIZED EDEMA +3. PATIENT ENCOURAGED FLUIDS. PATIENT INCONTIENT THIS SHIFT PERICARE AND BARRIER CREAM APPLIED NEEDED.FALL PRECAUTION I PLACE. PATIENT IN BED ASLEEP AT THIS TIME BREATHING REGULAR AND UNLABOURED.
[2021-02-25 06:36] LABS: ALBUMIN 2.2 g/dL (3.4-5.0); CALCIUM 8.4 mg/dL (8.5-10.1); CREATININE 1.1 mg/dL (0.6-1.0); MAGNESIUM 2.2 mg/dL (1.8-2.4); POTASSIUM 5.9 mmol/L (3.5-5.1); TOTAL BILIRUBIN 0.3 mg/dL (0.2-1.0); TOTAL PROTEIN 6.4 g/dL (6.4-8.2)
[2021-02-25 07:10] VITALS: BP 135/83
[2021-02-25 11:11] VITALS: BP 128/84
[2021-02-25 15:57] VITALS: BP 145/94
[2021-02-25 20:50] VITALS: BP 144/85
--- NOTE | 2021-02-26 04:32 | NUR ---
RECEIVED CARE OF THIS PATIENT AT 190. PATIENT ALERT AND ORIENTED X4. PATIENT IS BLIND. HAS GENERALIZED EDEMA ALL OVER OF 3-4+. SKIN IS TAUGHT AND PITTING. HAS DONYA WRAPS ON LOWER EXT. ACCUCHECK WAS 153, RECEIVED 3 UNITS OF LISPRO INSULIN. DENIES PAIN. SLEPT MOST OF NIGHT.
[2021-02-26 07:06] VITALS: BP 135/76
[2021-02-26 10:05] LABS: CALCIUM 8.5 mg/dL (8.5-10.1); CREATININE 1.1 mg/dL (0.6-1.0); POTASSIUM 5.3 mmol/L (3.5-5.1)
[2021-02-26 11:03] VITALS: BP 139/79
[2021-02-26 15:49] VITALS: BP 143/95
[2021-02-26 20:04] VITALS: BP 137/96
--- NOTE | 2021-02-27 05:51 | NUR ---
NO ACUTE EVENTS AT THIS TIME. PT REMAINS EXTREMELY EDEMATOUS. SHE ENDORCES PAIN IN HER LEGS- PRN MEDS GIVEN. DRESSINGS INTACT. PT IS UP TO CHAIR THIS MORNING WITH X2 ASSIST.
[2021-02-27 07:06] VITALS: BP 131/62
--- NOTE | 2021-02-27 07:28 | HC ---
[facility] [place] [address] CONSULTATION Name: ELTON PAGAN Room #: 442- ADM IN M.R.#: [id number] Admission: 02/20/21 Attend Phys: Zhang Fitzpatrick MD Discharge: Date of : 52 Report #: [id number] THIS REPORT FOR: cc: FAM - Family physician unknown FAM - Family physician unknown Santosh Sanderson MD ~ DATE OF SERVICE: 02/21/2021 INFECTIOUS DISEASE CONSULTATION ATTENDING PHYSICIAN: Dr. Chery. REASON FOR EVALUATION: Complicated urinary tract infection, also right lower extremity skin and soft tissue infection with cellulitis. HISTORY OF PRESENT ILLNESS: Chart reviewed. The patient examined. This is an 70-year-old woman known to myself, who I had seen in 09/2020 in the hospital with similar type of complaints, felt to have sepsis due to lower extremity inflammatory eruptions, thought to be at least a component of cellulitis, who was transferred from her facility subsequent to a fall. She is legally blind. She is not able to give much details of her history. She does admit to bilateral lower extremity pain. She is sitting in the chair, attempting to eat, working with occupational therapy. Seems she lost her balance. Does admit to some dyspnea, although has baseline COPD. She was evaluated. Urinalysis did show pyuria consistent with the urinary tract infection. Lactic acid 1.5. ProBNP of 2229. CRP of 53.6. Sed rate of 48. Procalcitonin 0.14. Blood cultures collected on admission are sterile thus far. Coronavirus testing was negative. Venous Doppler showed no evidence of bilateral lower extremity DVTs. Working diagnosis was felt to have a right lower extremity cellulitis as well as UTI. She was empirically started on therapy with cefepime and vancomycin. ALLERGIES: ASPIRIN. CURRENT MEDICATIONS: Include enoxaparin, insulin sliding scale, ipratropium, albuterol inhaler, vancomycin, cefepime, acetaminophen. PAST MEDICAL HISTORY: As described above, has diabetes mellitus type 2, has retinopathy with blindness, COPD, venous stasis insufficiency of the lower extremities with dermatitis and history of lower extremity cellulitis. SOCIAL HISTORY: She is disabled. Does smoke cigarettes. No illicit drug use. FAMILY HISTORY: Noncontributory. REVIEW OF SYSTEMS: Otherwise, admits to some dyspnea. No current GI related complaints. [address] [address] CONSULTATION Name: [facility] Room #: 2 ADM IN [place].#: [id number] Admission: 02/20/21 Attend Phys: Zhang Fitzpatrick MD Discharge: Date of : 52 Report #: [id number] PHYSICAL EXAMINATION: GENERAL: She is chronically ill-appearing, undernourished. She is in moderate distress. VITAL SIGNS: Temperature 98.5, pulse 81, respirations 14, blood pressure 112/52. SKIN: Warm, dry. HEENT: Normocephalic. NECK: Supple. LUNGS: Few scattered crackles primarily at the bases, overall diminished. HEART: Regular, soft systolic murmur. Occasional ectopy. ABDOMEN: Mildly distended, slightly firm. No apparent peritoneal signs. EXTREMITIES: Bilateral lower extremities, venous stasis insufficiency changes with dermopathy, appears to be erythrodermic type inflammatory eruption, more notable on the right than left, is palpably tender. I do not appreciate any bullous lesions. No ulcerative lesions. She is tender. GENITOURINARY AND RECTAL: Deferred. LABORATORY DATA: Electrolytes: Sodium 141, potassium 5.6, chloride 110, bicarbonate 26, anion gap of 5, BUN and creatinine 41 and 1.2, glucose of 208. Estimated GFR of 45. CBC: White count 3.9, H and H is 11.5 and 36.5, platelets of 160. Blood cultures negative thus far. Inflammatory markers as noted above. Urinalysis showed 6-15 white cells, greater than 30 bacteria. Liver function tests were generally unremarkable except for an alkaline phosphatase, which was elevated at 209. Albumin 2.5, total protein 7.5. CT of the head, no evidence of intracranial hemorrhage or depressed skull fracture. ASSESSMENT AND PLAN: Bilateral lower extremity inflammatory eruption, likely multifactorial. I think there is a component of cellulitis, skin and soft tissue infection on the right; secondly, also appears to have a complicated urinary tract infection based on initial studies. I agree with continuing empiric broad-spectrum therapy. She is certainly tenuous at baseline. She is not overtly toxic at this point, but certainly at risk for clinical deterioration. We will await results. Continue to monitor expectantly. Would favor adding some compression at some point when she is able to tolerate. We will follow. <ELECTRONICALLY SIGNED> By: Santosh Sanderson MD 02/27/21 0728 1138 08 Santosh Sanderson MD /nt
[2021-02-27 10:32] LABS: HEMOGLOBIN 11.6 gm/dL (12.0-15.0); MCH 27.8 pg (26.0-34.0); MCHC 31.4 g/dL (28.0-37.0); MCV 88.7 fL (80.0-100.0); RBC 4.18 mil/uL (4.20-5.00); RDW 17.6 % (10.5-14.5)
[2021-02-27 11:07] VITALS: BP 133/82
[2021-02-27 12:25] LABS: CALCIUM 8.7 mg/dL (8.5-10.1); CREATININE 1.1 mg/dL (0.6-1.0); MAGNESIUM 2.3 mg/dL (1.8-2.4); POTASSIUM 5.5 mmol/L (3.5-5.1)
--- NOTE | 2021-02-27 14:33 | NUR ---
BLE DRESSING CHANGED THIS AM AT 930. NO NEW WOUNDS FOUND QUENTIN. TOLERATED DRESSING CHANGED
[2021-02-27 15:56] VITALS: BP 110/75
--- NOTE | 2021-02-27 18:00 | NUR ---
[facility] accepting of patient they are inquiring into bed status. [facility] with patients dtr Es she has new number . Updaed patient.
[2021-02-28 07:27] VITALS: BP 115/57
--- NOTE | 2021-02-28 11:13 | NUR ---
A/O X 3. 2 L O2 VIA NASEL CANNULA. 2 ASSIST WITH TRANSFER WITH WALKER. RIGHT FOREARM PIV SALINE LOCKED. 2 + GENERAL EDEMA. BS 45 BEFORE BREAKFAST-2 OJS AND GLUCOSE 15 TUBE GIVEN, RECHECK BS 86. BILATERAL EYE BLINDNESS. BILATERAL LEG CELLULITIS-WRAPPED XEROFOAM, KERLEX, AND LUDIVINA WRAP. INSULIN HELD AND GLIMEPRIDE HELD DUE TO LOW BS 45.
[2021-02-28 11:43] VITALS: BP 134/62
[2021-02-28 16:52] LABS: URINE BILIRUBIN NEGATIVE (Negative); URINE BLOOD 1+ (Negative); URINE CLARITY CLOUDY; URINE COLOR YELLOW; URINE GLUCOSE-RANDOM* NEGATIVE (Negative); URINE KETONES NEGATIVE (Negative); URINE NITRITE-REFLEX NEGATIVE (Negative); URINE PROTEIN (DIPSTICK) 2+ (Negative); URINE SPECIFIC GRAVITY >= 1.030 (1.005-1.035); URINE UROBILINOGEN 0.2 E.U./dl (0.2-1.0)
[2021-02-28 16:53] LABS: URINE LEUKOCYTES-REFLEX 1+ (Negative)
[2021-02-28 17:01] LABS: HYALINE CASTS 4-10 Moderate /LPF (None Seen); SQUAMOUS >10 Many /LPF (0-3)
[2021-02-28 17:02] LABS: BACTERIA-REFLEX >30 Many /HPF (None Seen); CRYSTALS None Seen /LPF (None Seen); URINE RBC 3-10 Few /HPF (NONE SEEN)
[2021-02-28 17:25] VITALS: BP 104/56
[2021-03-01 00:06] VITALS: BP 130/89
--- NOTE | 2021-03-01 06:43 | NUR ---
ASSUMED CARE FOR PT AT 1900. PT ASSESSED TO BE AOX3 BLIND 70F PRESENTING WITH BILAT CELLULITIS AND UTI. PT IS A MAX ASSIST, INCONTINENT BUT CLEANED, STABLE ON 2L BASELINE, SR ON TELE, LEGS WRAPPED, PURWICK PLACED FOR SKIN BREAKDOWN. WAS ABLE TO REST THROUGHOUT THE NIGHT WITH NO COMPLAINTS, VSS.
[2021-03-01 09:03] VITALS: BP 96/62
[2021-03-01 09:16] VITALS: BP 96/62
[2021-03-01 10:05] LABS: ABSOLUTE NEUTROPHILS 2.6 thou/uL (1.4-8.2); BASOPHILS 0.2 % (0.0-2.0); EOSINOPHILS 2.2 % (0.0-3.0); HEMATOCRIT 35.3 % (37.0-47.0); HEMOGLOBIN 11.1 gm/dL (12.0-15.0); LYMPHOCYTES 15.8 % (24.0-44.0); MCHC 31.4 g/dL (28.0-37.0); MCV 89.2 fL (80.0-100.0); MONOCYTES 14.7 % (1.0-8.0); PLATELET COUNT 186 thou/uL (150-400); POLYS 67.1 % (36.0-66.0); RBC 3.96 mil/uL (4.20-5.00); RDW 17.5 % (10.5-14.5); WBC 3.8 thou/uL (4.0-11.0)
[2021-03-01 10:45] LABS: ALBUMIN 2.1 g/dL (3.4-5.0); CALCIUM 8.6 mg/dL (8.5-10.1); CREATININE 1.2 mg/dL (0.6-1.0); POTASSIUM 5.3 mmol/L (3.5-5.1); TOTAL BILIRUBIN 0.4 mg/dL (0.2-1.0); TOTAL PROTEIN 6.8 g/dL (6.4-8.2)
--- NOTE | 2021-03-01 10:49 | NUR ---
ASSUMED CARE OF PT AT 0700 THIS MORNING. PT WAS SLEEPING AND WOULD WAKE UP TO VOICE. PT'S O2 SAT HAD DECREASED TO 78% DURING VS CHECK. RT ARRIVED AND PLACED PT IN HF O2/NC @ 12L. PT IS MORE AWAKE. STAT PORTABLE XR AND ABG PER DR. RODRIGUEZ WAS OBTAINED. ABG RETURNED WITH 7.32PH, 42CO2, 84PO2, 21BICARB AND 96%/NC#12L. ASSESSMENTS NOTED IN CHART AND OTHERWISE UNREMARKABLE. PT STILL HAS EDEMA THROUGHOUT ALL EXTREMETIES AND ABD. MEDS AND TX GIVEN NEEDED AND SCHEDULED. FALL PRECAUTIONS ARE IN PLACE. CALL LIGHT AND OTHER NEEDS ARE IN REACH. WILL CONTINUE TO MONITOR AND NOTE ANY CHANGES.
[2021-03-01 10:50] LABS: BE(vivo) -4.9 mmol/L (-2 to +3); PCO2 42.2 mmHg (35.0-45.0); PO2 83.7 mmHg (80.0-100.0); pH 7.315 (7.360-7.450); sO2 95.5 % (92.0-98.0)
[2021-03-01 12:17] VITALS: BP 121/68
--- NOTE | 2021-03-01 14:32 | NUR ---
Patient not stable for dc. Updated [facility]
[2021-03-01 20:50] VITALS: BP 148/75
[2021-03-01 20:55] VITALS: BP 148/75
--- NOTE | 2021-03-02 05:55 | NUR ---
ASSUMED CARE OF PT AT 1900. PT ASSESSED TO BE AOX3 BLIND 70F PRESENTING WITH BLE CELLUTLITIS AND UTI. PT WAS ABLE TO REST TRHOUGHOUT THE NIGHT WITH FEW COMPLAINTS, VSS. PT IS STABLE ON 3-4L O2 AT NIGHT, SR ON TELEMETRY, LEGS WRAPPED, BED CHANGED AND PLACED ON PURWICK, AND ATE SOME OF HER MEAL PRIOR TO BEDTIME. NO FURTHER COMPLAINTS AT THIS TIME, WILL CONT TO MONITOR.
[2021-03-02 07:44] VITALS: BP 121/86
--- NOTE | 2021-03-02 12:30 | NUR ---
Dat Ring [facility] updated. Pt weaning down o2 from yesterday. Pt aspirated. Possible dc ready Sat. Their liason will check on their bed status for the weekend.
--- NOTE | 2021-03-02 14:27 | NUR ---
ASSUMED CARE OF PT AT 0700 THIS MORNING. PT HAD NO CHANGE SINCE REPORT LAST NIGHT. ASSESSMENTS NOTED IN CHART AND OTHERWISE UNREMARKABLE. PT HAD SUPP FOR HARD STOOLS. PT IS TO BE PICKED UP ANBD DISCHARGED TO [facility] IN [place] THIS AFTERNOON. FALL PRECAUTIONS ARE IN PLACE. CALL LIGHT AND OTHER NEEDS ARE IN REACH. MEDS AND TX GIVEN NEEDED AND SCHEDULED. WILL BE CONTACTING FACILITY WITH REPORT. PT WAS PICKED UP AND LEFT FOR FACILITY AT 1420 BY SHEILA MAYFIELD.
[2021-03-02 15:58] VITALS: BP 132/93
--- NOTE | 2021-03-02 18:39 | NUR ---
RE-ASSUMED CARE OF PT AT 0700 THIS MORNING. PT HAD NO CHANGE SINCE REPORT WAS GIVEN LAST NIGHT. NIGHT NURSE WAS ABLE TO REMOVALL BUT 3 RINGS OFF PT'S HANDS. I WAS ABLE TO REMOVE HER CLASS RING THIS EVENING. THERE ARE 2 LEFT THAT MAY NEED TO BE CUT OFF. ASSESSMENTS NOTED IN CHART AND OTHERWISE UNREMARKABLE. FALL PRECAUTIONS ARE IN PLACE. CALL LIGHT AND OTHER NEEDS ARE IN REACH. MEDS AND TX GIVEN NEEDED AND SCHEDULED. WOUND NURSE CHANGED DRESSINGS ON BILAT LE. WILL CONTINUE TO MONITOR AND NOTE ANY CHANGES.
[2021-03-02 20:21] VITALS: BP 120/72
--- NOTE | 2021-03-02 21:33 | NUR ---
ASSUMED CARE OF PT AROUND 1900. UPON ASSESSMENT PT IS LETHARGIC WITH MARKED EDEMA THROUGHOUT HANDS. PT REQUIRING 7L O2 AT THIS TIME- REPORTED TO BE ON 3L DURING REPORT- SATING HIGH 80S- LOW 90% NO INSULIN GIVEN PT REPORTS HAVING POOR INTAKE. WILL CONTINUE TO MONITOR AND PROMOTE BETTER OXYGENATION
[2021-03-03 07:30] VITALS: BP 116/89
[2021-03-03 15:09] LABS: ABSOLUTE NEUTROPHILS 3.3 thou/uL (1.4-8.2); BASOPHILS 0.3 % (0.0-2.0); HEMOGLOBIN 10.8 gm/dL (12.0-15.0); LYMPHOCYTES 13.6 % (24.0-44.0); MCH 27.1 pg (26.0-34.0); MCHC 30.7 g/dL (28.0-37.0); MCV 88.1 fL (80.0-100.0); MONOCYTES 10.6 % (1.0-8.0); PLATELET COUNT 186 thou/uL (150-400); POLYS 74.5 % (36.0-66.0); RBC 3.97 mil/uL (4.20-5.00); RDW 16.7 % (10.5-14.5); WBC 4.4 thou/uL (4.0-11.0)
[2021-03-03 15:22] VITALS: BP 146/68
[2021-03-03 15:35] LABS: ALBUMIN 1.9 g/dL (3.4-5.0); CALCIUM 8.3 mg/dL (8.5-10.1); CREATININE 1.1 mg/dL (0.6-1.0); POTASSIUM 5.3 mmol/L (3.5-5.1); TOTAL BILIRUBIN 0.4 mg/dL (0.2-1.0); TOTAL PROTEIN 6.3 g/dL (6.4-8.2)
--- NOTE | 2021-03-03 15:37 | NUR ---
Patient accepted to [facility] Earliest [facility] can have a bed is Saturday. IF patient to discharge on Saturday. Fax orders to [facility] at [phone]. Order chart copy. Call Carolann with [facility] to alert of discharge [phone]. Call Es dtr at to alert of discharge. If need to arrange transport call [facility] [phone]
--- NOTE | 2021-03-03 19:08 | NUR ---
PT ALERT TO SELF. PT LUNGS SOUND CORSE AND WET. PT HAS 3 TO 4+ GENERALIZED PITTING EDEMA. BLADDER SCAN REVEALED 825ML. RECEIVED ORDER TO PLACE CHAIREZ FOR STRICT I&O'S AND RETENTION CHAIREZ HAD 1250ML OUT UPON INSERTION. AFTER IV LASIX GIVEN PT HAD 100ML OUT.
[2021-03-03 20:30] VITALS: BP 140/94
[2021-03-04 04:27] VITALS: BP 132/65
--- NOTE | 2021-03-04 07:34 | NUR ---
PATIENT NOTABLE MORE LETHARGIC THAN PREVIOUS ENCOUTNERS. PT ORIENTED ONLY TO SELF AND NOT PARTICIPATING IN CARE. PT HAS NEW ONSET EXTREMETY SPASM. 600 ML OUT THROUGH CHAIREZ OVERNIGHT, WOUND CARE PROVIDED PER ORDERS.
[2021-03-04 08:00] VITALS: BP 104/60
--- NOTE | 2021-03-04 08:50 | NUR ---
PATIENTS BLOOD SUGAR THIS AM STARTING OUT AT 44. PATIENT IS ALERT AND ABLE TO EAT. PATIENT IS ALSO ANSWERING QUESTIONS APPRIORATLY. WHITEWATER RAFTING GUIDE GAVE PT 8 OZ OF JUICE AND RECHECKED IN 20 MINS. AFTER RECHECKING GLUAKIKO PATIETNS SUGAR HAD ONLY COME UP TO 48. GAVE 3 TABS OF GLUCOSE WITH MILK FROM BREAKFAST TRAY SUGAR NOW 68. WILL GIVE ANOTHER 4 OZ OF JUICE AND HELP PATIENT EAT BREAKFAST.
[2021-03-04 11:49] VITALS: BP 122/40
--- NOTE | 2021-03-04 14:09 | NUR ---
A #4F MIDLINE WAS PLACED PER HOSPITAL POLICY AFTER A VERBAL CONSENT WAS OBTAINED. THE LEFT CEPHALIC VEIN VS CATHETER RATIO WAS LESS THAN 20%. BILATERAL +4 PITTING EDEMA WAS NOTED TO BILATERAL ARMS PRIOR TO PLACEMENT. THE LINE WAS TRIMMED TO 15CM AND ADVANCED WITHOUT DIFFICULTY. THE LINE WAS SECURED AND RELEASED FOR USE
[2021-03-04 15:48] VITALS: BP 123/67
[2021-03-04 17:33] LABS: ABSOLUTE NEUTROPHILS 4.2 thou/uL (1.4-8.2); BASOPHILS 0.3 % (0.0-2.0); EOSINOPHILS 0.7 % (0.0-3.0); HEMATOCRIT 33.5 % (37.0-47.0); HEMOGLOBIN 10.4 gm/dL (12.0-15.0); LYMPHOCYTES 13.3 % (24.0-44.0); MCH 27.4 pg (26.0-34.0); MCV 88.3 fL (80.0-100.0); MONOCYTES 7.6 % (1.0-8.0); PLATELET COUNT 180 thou/uL (150-400); POLYS 78.1 % (36.0-66.0); RDW 16.6 % (10.5-14.5); WBC 5.4 thou/uL (4.0-11.0)
[2021-03-04 18:57] LABS: CALCIUM 8.2 mg/dL (8.5-10.1); CREATININE 1.4 mg/dL (0.6-1.0); MAGNESIUM 1.8 mg/dL (1.8-2.4)
[2021-03-04 19:32] VITALS: BP 114/43
[2021-03-05] VITALS (66 sets, daily range): BP systolic 81–198; BP diastolic 14–165
[2021-03-05 03:41] LABS: HEMATOCRIT 34.4 % (37.0-47.0); HEMOGLOBIN 10.7 gm/dL (12.0-15.0); MCH 27.4 pg (26.0-34.0); MCHC 31.1 g/dL (28.0-37.0); RBC 3.91 mil/uL (4.20-5.00); RDW 16.7 % (10.5-14.5); WBC 6.3 thou/uL (4.0-11.0)
--- NOTE | 2021-03-05 05:05 | NUR ---
Pt. rested quietly during the night when checked on during frequent rounds. She does have generalized edema in bilateral arms and hands, also abdomen and bilateral lower legs. The arms are weepy at times. Pt. does get easily short of air during turns. Head of the bed elevated. No c/o pain voiced. Bed alarm is on.
[2021-03-05 05:33] LABS: CALCIUM 8.3 mg/dL (8.5-10.1); CREATININE 1.4 mg/dL (0.6-1.0); MAGNESIUM 1.9 mg/dL (1.8-2.4); POTASSIUM 5.1 mmol/L (3.5-5.1)
--- NOTE | 2021-03-05 05:55 | NUR ---
LAB CALLED WITH GLUCOSE OF 30 AND HYPOGLYCEMIA PROTOCAL STARTED. PT. IS LETHARGIC AND AMP OF GLUCOSE INITIATED. TEMPERING MACHINE OPERATOR NOTIFIED OF GLUCOSE. UPON RECHECK IT CAME UP TO 75. PT. MORE ALERT AND ATE SOME PUDDING.
[2021-03-05 10:11] LABS: URINE BILIRUBIN NEGATIVE (Negative); URINE BLOOD 3+ (Negative); URINE CLARITY CLEAR; URINE COLOR YELLOW; URINE GLUCOSE-RANDOM* NEGATIVE (Negative); URINE KETONES NEGATIVE (Negative); URINE LEUKOCYTES-REFLEX NEGATIVE (Negative); URINE NITRITE-REFLEX NEGATIVE (Negative); URINE PROTEIN (DIPSTICK) TRACE (Negative); URINE SPECIFIC GRAVITY 1.015 (1.005-1.035); URINE UROBILINOGEN 0.2 E.U./dl (0.2-1.0)
[2021-03-05 10:19] LABS: BE(vivo) 3.2 mmol/L (-2 to +3); HCO3 29.9 mmol/L (22.0-26.0); PCO2 55.5 mmHg (35.0-45.0); PO2 58.9 mmHg (80.0-100.0); pH 7.349 (7.360-7.450); sO2 88.8 % (92.0-98.0)
--- NOTE | 2021-03-05 12:19 | NUR ---
ASSUMED PT CARE THIS M. PT IS FROM HOME AND BLIND. PT HAS IV SITE ON RFA AND L UA MIDLINE. PT IS ON 11L HIGH FLOW O2. PT HAS TELE MONITOR ON. SENT UA THIS AM. PT HAS CHAIREZ CATH IN PLACE. BG WAS LOW THIS AM AND LUNCH TIME AND PUSH DEXTROSE IV. ASSISTED DR MARADIAGA THIS AM TO PLACE TEMPORARY DIALYSIS PORT BUT WAS UNSUCCESSFUL. CALLED HOUSE SUP THAT WANTS TO TRANSFER TO ICU. CALLED ICU NURSE FOR HANDS OFF REPORT. TRANSFERRED PT TO ICU.
[2021-03-05 12:27] LABS: CASTS None Seen /LPF (None Seen); MUCUS 4-6 Moderate strn/LPF (None Seen); SQUAMOUS 0-3 Few /LPF (0-3)
[2021-03-05 12:28] LABS: BACTERIA-REFLEX 1-9 Few /HPF (None Seen); CRYSTALS None Seen /LPF (None Seen); URINE RBC 3-10 Few /HPF (NONE SEEN); URINE WBC-REFLEX 0-5 Rare /HPF (0-5)
--- NOTE | 2021-03-05 13:26 | NUR ---
1240: DR. DENNIS AT BEDSIDE. NOTIFIED HIM OF PT'S SPO2 MID 90S ON 15L NRB. RN TO CALL DR. CORCORAN FOR FURTHER INTERVENTIONS.
--- NOTE | 2021-03-05 13:27 | NUR ---
1245: RN CALLED DR. CORCORAN AT THIS TIME. NOTIFIED HIM PT HAS LABORED, ABDOMINAL BREATHING, SPO2 93-97% ON 15L VIA NRB. RN INQUIRING ABOUT BIPAP UNTIL HD CAN BE COMPLETED. OKAY TO PLACE BIPAP PER DR. CORCORAN AND HE WILL BE BY TO ASSESS.
--- NOTE | 2021-03-05 13:30 | NUR ---
1245: DR. MARADIAGA AT BEDSIDE. HD CATHETER PLACED IN RIGHT IJ AT THIS TIME. STAT CXR ORDERED TO CONFIRM PLACEMENT.
--- NOTE | 2021-03-05 13:30 | NUR ---
1315: DR. CORCORAN AT BEDSIDE. PER DR. CORCORAN HD CATHETER IN APPROPRIATE PLACE, OKAY TO USE. VERBAL ORDER FOR BIPAP AT THIS TIME FROM DR. CORCORAN.
--- NOTE | 2021-03-05 13:31 | NUR ---
1320: RN CALLED RT AT THIS TIME NOTIFIED RT MAYCO OF ORDERS FOR BIPAP
--- NOTE | 2021-03-05 13:51 | NUR ---
1345: RT TO BEDSIDE. BIPAP PLACED. PT AGITATED, TRYING TO PULL OFF HER FACE, CONFUSED AND UNABLE TO REDIRECT AT TIMES. OKAY TO PLACE ORDER FOR BILATERAL SOFT WRIST RESTRAINTS PER DR. DENNIS.
--- NOTE | 2021-03-05 17:05 | NUR ---
1700: RN PAGED DR. DENNIS REGARDING LOW BG. PT HAS HAD 3 BG <70 THIS SHIFT REQUIRING D50 ADMINISTRATION. NO NEW ORDERS, CONTINUE TO PUSH D50 FOR LOW BG. ALSO NOTIFIED MD OF NO DOCUMENTED BM SINCE 02/27. PT HAS HYPOACTIVE BS, DISTENDED; HOWEVER VERY FLUID OVERLOADED SO DIFFICULT TO ITS RELATION. RN TO PLACE ORDER FOR SUPPOSITORY X1 AND KUB TO EVAL.
[2021-03-06] VITALS (59 sets, daily range): BP systolic 80–140; BP diastolic 31–97
--- NOTE | 2021-03-06 00:41 | NUR ---
Between the hours of 1999 and 2229 pts oxygen requirements increased despite recieving dialysis today and lasix. RT Evan to bedside to place pt on bipap at 2229. ERIKA Gonzalez notified of NC going from 8L to 15L then to bipap. Notified Carlos that pt would not be able to go to abd CT overnight d/t inability to lie flat for extended periods of time. ACADEMIC ADMINISTRATOR is okay with plan.
[2021-03-06 04:54] LABS: HEMATOCRIT 27.9 % (37.0-47.0); MCH 28.1 pg (26.0-34.0); MCHC 32.3 g/dL (28.0-37.0); MCV 87.2 fL (80.0-100.0); RBC 3.2 mil/uL (4.20-5.00); RDW 16.7 % (10.5-14.5); WBC 4.9 thou/uL (4.0-11.0)
[2021-03-06 05:00] LABS: CALCIUM 8.2 mg/dL (8.5-10.1); CREATININE 1.2 mg/dL (0.6-1.0); MAGNESIUM 1.9 mg/dL (1.8-2.4); POTASSIUM 4.7 mmol/L (3.5-5.1)
--- NOTE | 2021-03-06 07:55 | NUR ---
Pt TRANSFERRED TO ICU. WILL PLACE ON HOLD AND AWAIT NEW ORDERS WHEN APPROPRIATE
--- NOTE | 2021-03-06 08:22 | NUR ---
0645- notified Dr. Ferrara that pts BP was 80s/50s. Ordered to hold lasix but gabapentin okay to give and dialysis okay to start.
--- NOTE | 2021-03-06 16:43 | NUR ---
Patient transferred to ICU over weekend with resp distress. RN reports someone tried to call dtr Es and left message. Sp with Es today she did not know patient transferred to ICU. Rn gave her report. Patient can answer questiones. She reports Es is her dtr. Updated [facility] and faxed information.
[2021-03-07] VITALS (23 sets, daily range): BP systolic 94–139; BP diastolic 45–89
[2021-03-07 05:21] LABS: HEMATOCRIT 27.5 % (37.0-47.0); HEMOGLOBIN 8.8 gm/dL (12.0-15.0); MCH 27.6 pg (26.0-34.0); MCV 86.3 fL (80.0-100.0); RBC 3.19 mil/uL (4.20-5.00); RDW 16.2 % (10.5-14.5); WBC 3.5 thou/uL (4.0-11.0)
[2021-03-07 05:30] LABS: CALCIUM 8.1 mg/dL (8.5-10.1); MAGNESIUM 1.9 mg/dL (1.8-2.4); POTASSIUM 4.4 mmol/L (3.5-5.1)
--- NOTE | 2021-03-07 05:55 | NUR ---
PT ON BIPAP AT 80% FIO2 AND MAINTAINING SPO2>94%. PT EARLIER IN THE SHIFT WAS ON O2 AT 15LITERS HF/NC .PT SUDDENLY STARTED BEING VERY RESTLESS,ANXIOUS AND HAVING INCREASED WORK OF BREATHING,SPO2 DESAT TO 80%.ATIVAN 0.25MG WAS GIVEN AND PT WAS PLACED ON BIPAP.PCR COVID TEST WAS COMPLETED,PT TESTED POSITIVE, WAS NOTIFIED AND REQUESTED TO NOTIFY ID PHYSICIAN SOMETIMES DURING THE DAY.PT PLACED ON ENHANCED ISOLATION.ASSESSMENT COMPLETED DOCUMENTED.
--- NOTE | 2021-03-07 07:26 | NUR ---
PATIENT TRANSFERRED TO ICU DUE TO A CHANGE IN MEDICAL STATUS. WILL NEED NEW ORDERS ONCE MEDICALLY APPROPRIATE.
--- NOTE | 2021-03-07 08:00 | NUR ---
6945-MESSAGE LEFT ON 'S CONTYACT LINE TO INFORM OF PT'S CO VID RESULT.--VW 0800-PT CHANGED TO 15LHF/NC EALIER BY Alessio. PT WAS WANTING BIPAP OFF.VERY TEARFUL,MOANING.PT USING ABD ACCESS MUSCLES TO BREATHE.PT LYING IN BED,AUD WHEEZES,SOB AT REST.INFORMED OF CO VID TEST BEING +, NO VISITORS ALLOWED.PT OR X4. VERY [place] & DIFF TO HAVE PT ANSWER ?'S. ATTEMPTED TO CALL STACEY DONATO AT BOTH #'S LISTED TO INFORM OF NO VISITORS DUE TO PT BEING CO VID +. NEITHER #'S LISTED ARE WORKING #'S.--VW
--- NOTE | 2021-03-07 12:08 | NUR ---
A CENTRAL LINE WAS ORDERED PER MEDICAL NECESSITY. THE PATIENT HAS A RIGHT IJ DIALYSIS LINE. THE LEFT JUGULAR VEIN WAS WIDLEY PATENT. BRUISING NOTED TO THE LEFT SIDE OF THE NECK AND UNDER THE CHIN FROM PRIOR LINE ATTEMPTS. A #6F TRIPLE LUMEN CENTRAL LINE WAS PLACED PER HOSPITAL POLICY AFTER A BEDSIDE TIMEOUT WAS COMPLETED. THE 25CM LINE WAS ADVANCED TO 6CM EXTERNAL. A STAT CHEST XRAY WAS ORDERED FOR CONFIRMATION
--- NOTE | 2021-03-07 15:49 | NUR ---
Discussed during unit rounds with pulmonary MD. She is now on enhanced covid isolation as she tested positive. Requiring bipap. Starting on Remdesivir. Cm provided verbal updates to tim benson. BPCI. Bedside nurse has provided updates to danielle few times today. Will cont following as needed.
[2021-03-08] VITALS (23 sets, daily range): BP systolic 96–151; BP diastolic 45–126
--- NOTE | 2021-03-08 03:48 | NUR ---
PERSONNEL SUPERVISOR was notified of the pt's restlessness at 2100. q6h prn Haloperidol was ordered and administered
[2021-03-08 05:12] LABS: HEMATOCRIT 32.9 % (37.0-47.0); HEMOGLOBIN 10.2 gm/dL (12.0-15.0); MCH 26.9 pg (26.0-34.0); MCHC 31.2 g/dL (28.0-37.0); MCV 86.3 fL (80.0-100.0); RBC 3.81 mil/uL (4.20-5.00); RDW 16.6 % (10.5-14.5); WBC 2.2 thou/uL (4.0-11.0)
[2021-03-08 05:45] LABS: CALCIUM 8.4 mg/dL (8.5-10.1); CREATININE 1.1 mg/dL (0.6-1.0); DIRECT BILIRUBIN 0.2 mg/dL (<0.1-0.2); MAGNESIUM 2.1 mg/dL (1.8-2.4); PHOSPHORUS 5.7 mg/dL (2.5-4.9); TOTAL BILIRUBIN 0.4 mg/dL (0.2-1.0); TOTAL PROTEIN 6.3 g/dL (6.4-8.2)
[2021-03-08 05:56] LABS: POTASSIUM 5.5 mmol/L (3.5-5.1)
--- NOTE | 2021-03-08 18:54 | NUR ---
PATIENT WAS YELLING OUT MOST OF AM. SHE WAS FINAL ABLE TO HEAR ME AND WAS ABLE TO ANSWER MOST QUESTION. A/OX2 TO 3 WITH FORGET FULLNESS. PATIENT 02 WAS GOING IN TO THE [address] ON BIPAP. HALDOL WAS GIVEN AND HELPED. 02 IN LOW 90'S AFTER BIPAP. TRYED TO CALL DAUGHTER WITH NO LUCK. PATIENT IS RESTING IN BED WITH CALL PETERSON IN REACH.
[2021-03-09] VITALS (17 sets, daily range): BP systolic 33–127; BP diastolic 15–87
[2021-03-09 04:59] LABS: HEMATOCRIT 30.3 % (37.0-47.0); HEMOGLOBIN 9.9 gm/dL (12.0-15.0); MCH 27.9 pg (26.0-34.0); MCHC 32.7 g/dL (28.0-37.0); MCV 85.2 fL (80.0-100.0); RBC 3.56 mil/uL (4.20-5.00); RDW 16.4 % (10.5-14.5)
[2021-03-09 05:34] LABS: ALBUMIN 1.8 g/dL (3.4-5.0); CALCIUM 7.6 mg/dL (8.5-10.1); CREATININE 1.1 mg/dL (0.6-1.0); DIRECT BILIRUBIN 0.1 mg/dL (<0.1-0.2); PHOSPHORUS 4.9 mg/dL (2.5-4.9); POTASSIUM 4.8 mmol/L (3.5-5.1); TOTAL BILIRUBIN 0.3 mg/dL (0.2-1.0); TOTAL PROTEIN 5.8 g/dL (6.4-8.2)
[2021-03-09 08:08] LABS: HEPATITIS B SURFACE AG Negative (Negative)
[2021-03-09 12:01] LABS: BE(vivo) 6.6 mmol/L (-2 to +3); HCO3 30.9 mmol/L (22.0-26.0); PCO2 43.5 mmHg (35.0-45.0); PO2 94.4 mmHg (80.0-100.0); sO2 97.6 % (92.0-98.0)
--- NOTE | 2021-03-09 13:41 | NUR ---
If renal approves dc PPN and transition to TPN, recommend 15%dex, 5%AA and 2.9% lipids at 70ml/hr
[2021-03-10] VITALS (29 sets, daily range): BP systolic 97–179; BP diastolic 50–88
[2021-03-10 06:11] LABS: ALBUMIN 1.8 g/dL (3.4-5.0); CALCIUM 8.2 mg/dL (8.5-10.1); DIRECT BILIRUBIN 0.1 mg/dL (<0.1-0.2); POTASSIUM 4.2 mmol/L (3.5-5.1); TOTAL BILIRUBIN 0.3 mg/dL (0.2-1.0); TOTAL PROTEIN 5.7 g/dL (6.4-8.2)
--- NOTE | 2021-03-10 11:59 | NUR ---
1130: DISCUSSED POC WITH DR. KIRKPATRICK DURING INTERDISCIPLINARY ROUNDS. NOTIFIED HIM PT IS DOWN TO 60% FIO2, TOLERATING BIPAP. DR. KIRKPATRICK WOULD LIKE TO TRY PT OFF BIPAP. RN NOTIFIED RT OF NEED FOR INITITATION OF OPTIFLOW.
--- NOTE | 2021-03-10 12:47 | NUR ---
PT TRANSITIONED TO OPTIFLOW AT THIS TIME, SPO2 95%
--- NOTE | 2021-03-10 15:21 | NUR ---
Cm received call from the attending physician, wanting to know if cm has spoke with lesli because he not been able to reach her. Cm passed on that the bedside nurse and others in the cm have spoken with her. CM called # , left message requesting a call back. Bipap 75%, TPN. Enhanced isolation for covid. No anticipated dc over the weekend. Will cont following as needed.
[2021-03-11] VITALS (43 sets, daily range): BP systolic 105–171; BP diastolic 44–104
[2021-03-11 09:43] LABS: ANION GAP < 0 mmol/L (7-16); BUN 82 mg/dL (7-18); CALCIUM 8.7 mg/dL (8.5-10.1); CHLORIDE 93 mmol/L (98-107); CO2 39 mmol/L (21-32); CREATININE 0.9 mg/dL (0.6-1.0); DIRECT BILIRUBIN 0.2 mg/dL (<0.1-0.2); GLUCOSE 135 mg/dL (74-106); MAGNESIUM 2.3 mg/dL (1.8-2.4); PHOSPHORUS 4.2 mg/dL (2.5-4.9); POTASSIUM 3.4 mmol/L (3.5-5.1); SGOT 23 U/L (15-37); SGPT 23 U/L (30-65); SODIUM 123 mmol/L (136-145); TOTAL BILIRUBIN 0.4 mg/dL (0.2-1.0); TOTAL PROTEIN 5.9 g/dL (6.4-8.2)
--- NOTE | 2021-03-11 11:38 | NUR ---
TRIED TO PLACE PATIENT ON OPTIFLOW AND ADJUST LITER FLOW AND FIO2 TO TITRATE 88-92% PER DR DENNIS. PATIENT WAS UNALE TO TOLERATE THE OPTIFLOW AND STATED SHE COULDN'T BREATHE. SATURATION AT THIS TIME WAS 94 ON 40L/50%. PATIENT REQUESTED TO GO BACK ON BIPAP. I CHANGED THE MASK TO A FULL FACE MASK AND PATIENT IS AGAIN COMFORTABLE.
[2021-03-11 13:26] LABS: CALCIUM 8.5 mg/dL (8.5-10.1); CREATININE 0.8 mg/dL (0.6-1.0); POTASSIUM 4.2 mmol/L (3.5-5.1)
--- NOTE | 2021-03-11 20:13 | NUR ---
VSS THROUGHOUT SHIFT. ATTEMPTED TO SWITCH TO OPTIFLOW THIS AM, PT DID NOT TOLERATE AND BACK TO BIPAP WITH FULL FACE MASK. TITRATED FI02 MARIBETH, PT NERVOUS/ANXIOUS, REASSURED PT ABOUT POC AND GOALS. BILATERAL LOWER EXTREMITY DRESSING CHANGES DONE WELL COMPLETE BATH, LINEN AND GOWN CHANGE.
[2021-03-12] VITALS (42 sets, daily range): BP systolic 118–193; BP diastolic 43–109
--- NOTE | 2021-03-12 06:00 | NUR ---
VSS REMAINS ON BIPAP. PT HAS SLEPT MOST OF NIGHT. TPN AT 60/HR PRECEDEX GTT HAD 3500 CC UO THIS SHIFT. REMAINS IN SINUS ARRYTHMIA. A VERY SWEET LITTLE LADY. PROGRESSING TOWARD GOALS
[2021-03-12 06:46] LABS: HEMATOCRIT 35.3 % (37.0-47.0); HEMOGLOBIN 11.1 gm/dL (12.0-15.0); MCH 26.8 pg (26.0-34.0); MCHC 31.3 g/dL (28.0-37.0); MCV 85.7 fL (80.0-100.0); RBC 4.12 mil/uL (4.20-5.00); RDW 16.4 % (10.5-14.5); WBC 4.3 thou/uL (4.0-11.0)
[2021-03-12 06:56] LABS: CALCIUM 8.5 mg/dL (8.5-10.1); CREATININE 0.8 mg/dL (0.6-1.0); POTASSIUM 3.9 mmol/L (3.5-5.1)
[2021-03-13] VITALS (24 sets, daily range): BP systolic 87–161; BP diastolic 32–111
--- NOTE | 2021-03-13 06:00 | NUR ---
VSS REMAINS ON BIPAP 70 % FIO2 RESTED QUIETLY ALL NIGHT PRECEDEX GTT 3 LITERS URINE OUTPUT NO STOOLS REMAINS IN SINUS ARRYTHMIA. PROGRESSING TOWARD GOALS., BATHED. A VERY DELIGHTFUL LITTLE LADY.
[2021-03-13 06:16] LABS: ANION GAP < 0 mmol/L (7-16); BUN 62 mg/dL (7-18); CALCIUM 8.6 mg/dL (8.5-10.1); CHLORIDE 102 mmol/L (98-107); CO2 41 mmol/L (21-32); CREATININE 0.7 mg/dL (0.6-1.0); GLUCOSE 260 mg/dL (74-106); POTASSIUM 3.5 mmol/L (3.5-5.1); SODIUM 142 mmol/L (136-145)
[2021-03-14] VITALS (23 sets, daily range): BP systolic 71–157; BP diastolic 30–92
[2021-03-14 11:52] LABS: HCO3 38.2 mmol/L (22.0-26.0); PCO2 52.9 mmHg (35.0-45.0); PO2 110.9 mmHg (80.0-100.0); pH 7.477 (7.360-7.450); sO2 98.2 % (92.0-98.0)
--- NOTE | 2021-03-14 13:30 | NUR ---
Chris visited with palliative CLIENT EXPERIENCE CONSULTANT, she has not been able to reach lesli via phone call. CM called lesli, no answer, left message requesting a call back. Palliative Analytical Engineer consulted to discuss goals of care.. Lacie cont. to require use of bipap, has dobbhoff for nutritional support. Covid Isolation. Will cont following as needed for dc needs.
--- NOTE | 2021-03-14 14:38 | EKG ---
[place] [address] [facility] [place] [address] ELECTROCARDIOGRAM REPORT Name: ELTON PAGAN Room #: 246-P ADM IN M.R.#: [id number] Admission: 02/20/21 Attend Phys: Zhang Fitzpatrick MD Discharge: Date of : 52 Report #: [id number] [facility] Test Date: 2021-03-14 Test Time: 10:18:28 Pat Name: ELTON PAGAN Department: Room: 246 P Gender: F Pulp Mill Operator: BHARATHI : 1950 Requested By: Colt Chapman Order Number: [id number] MD: Jeffrey Keith Measurements Intervals [place] Rate: 67 P: 72 DE: 144 QRS: 46 QRSD: 94 T: 12 QT: 409 QTc: 432 Interpretive Statements Sinus rhythm Multiple premature complexes, vent & supraven Low voltage, precordial leads Compared to ECG 09/27/2020 08:52:19 Sinus tachycardia no longer present Electronically Signed On 03-14-2021 14:38:12 LIMNOLOGY TEACHER by Jeffrey Keith [email or web address] <ELECTRONICALLY SIGNED> By: Jeffrey Keith MD, [facility] 03/14/21 1438 [id number] 1018 Jeffrey Keith MD, [facility] /EPI
--- NOTE | 2021-03-14 18:55 | NUR ---
PT HAS BEEN AT 100% FIO2 SINCE 0900 THIS MORNING WHEN SHE DESATTED TO 84-85% ON 70% FIO2. PT SATS HAVE BEEN 91-95%. PT WAS ALSO HYPOTENSIVE WITH MAP IN THE 40S-50S. PER DR. CORCORAN, CVP WAS STARTED AND MEASURED AT 16-18. LEVOPHED GTT AND 1L FLUID BOLUS WERE GIVEN PER DR. DENNIS. BP HAS BEEN STABLE THROUGHOUT THE REST OF THE SHIFT. PT REMAINS SEDATED ON PRECEDEX AND DID NOT TOLERATE TITRATION OFF. PT BECOMES TACHY WITH BIGEMINY AND ATTEMPTS TO DISCONNECT MEDICAL EQUIPMENT AND BIPAP WITHOUT PRECEDEX. PT HAD BM X2 THIS SHIFT AND CHAIREZ OUTPUT WAS ADEQUATE. THIS RN CHANGED PT'S BILAT LOWER LEG DRESSINGS AT 1800. WAITING TO HEAR FROM PT'S DAUGHTER ABOUT GOALS AND PLAN OF CARE. DR. CORCORAN AND THIS RN LEFT THE DAUGHTER VOICEMAILS, BUT SHE HAS YET TO RETURN. WILL CONTINUE TO MONITOR AND FOLLOW POC.
--- NOTE | 2021-03-14 23:14 | NUR ---
fENTANYL AND VERSED GTTS STARTED. PT MEDICATED WITH ETOMIDATE 40 MG AND SUCCINYLCHOLINE 60MG. PT INTUBATED BY DR. CORCORAN USING A 7.5 MM ETT. + CO2 COLOR CHANGE NOTED. ETT TAPED AT 21 AT THE LIP. B/L BREATH SOUNDS NOTED. BRONCHOSCOPY PERFORMED FOR A LARGE ANOUNT OF BLOODY, FROTHY SECRETIONS. SPECIMEN SENT TO LAB.
[2021-03-15 00:41] LABS: PCO2 33.1 mmHg (35.0-45.0); PO2 62.7 mmHg (80.0-100.0); pH 7.589 (7.360-7.450); sO2 95.1 % (92.0-98.0)
[2021-03-15 01:29] LABS: URINE BILIRUBIN NEGATIVE (Negative); URINE BLOOD TRACE (Negative); URINE CLARITY CLEAR; URINE COLOR YELLOW; URINE GLUCOSE-RANDOM* NEGATIVE (Negative); URINE KETONES NEGATIVE (Negative); URINE LEUKOCYTES-REFLEX NEGATIVE (Negative); URINE NITRITE-REFLEX NEGATIVE (Negative); URINE PROTEIN (DIPSTICK) 2+ (Negative)
[2021-03-15 02:20] LABS: BACTERIA-REFLEX 1-9 Few /HPF (None Seen); HYALINE CASTS >10 Many /LPF (None Seen); MUCUS 4-6 Moderate strn/LPF (None Seen); SQUAMOUS 4-10 Moderate /LPF (0-3); URINE RBC 3-10 Few /HPF (NONE SEEN); URINE WBC-REFLEX 0-5 Rare /HPF (0-5)
[2021-03-15 02:21] LABS: CRYSTALS None Seen /LPF (None Seen)
[2021-03-15 04:47] LABS: HCO3 32.2 mmol/L (22.0-26.0); PCO2 38.2 mmHg (35.0-45.0); PO2 70.3 mmHg (80.0-100.0); pH 7.543 (7.360-7.450); sO2 95.8 % (92.0-98.0)
[2021-03-15 06:45] LABS: CALCIUM 7.9 mg/dL (8.5-10.1); CREATININE 0.7 mg/dL (0.6-1.0); MAGNESIUM 2.1 mg/dL (1.8-2.4)
--- NOTE | 2021-03-15 09:52 | NUR ---
Advance tube feed to new goal 65ml/hr
--- NOTE | 2021-03-15 19:37 | NUR ---
PT SEDATED ON PRECEDEX, VERSED, AND FENTANYL. PT TOLERATING INTUBATION AND SATS >94% ON FIO2 80% AND PEEP 10. DOBHOFF WAS REMOVED THIS SHIFT DURING DR. DENNIS AND OG TUBE WAS PLACED. OG WAS CONFIRMED BY XRAY AND TUBE FEEDINGS WERE RESTARTED. RESIDUALS ARE MINIMAL AND PT IS TOLERATING FEEDING. COPIOUS SECRETIONS WERE SUCTIONED THROUGHOUT THE DAY AND PT LUNG SOUNDS REMAIN COURSE. LEVOPHED GTT WAS RESTARTED FOR MAP IN THE 50S AND BP HAS BEEN STABLE SINCE. PT HAS GOOD URINE OUTPUT AND HAD BM X1 THIS AM. PT'S DAUGHTER HAS NOT CALLED BACK AND DR. CORCORAN WANTS TO TALK TO HER WHEN SHE DOES. WILL CONTINUE TO MONITOR AND FOLLOW POC.
--- NOTE | 2021-03-16 15:07 | PATH ---
[facility] [address] [facility] [place] [address] PATHOLOGY RPT PROCEDURE Name: ELTON PAGAN Room #: 246-P ADM IN M.R.#: [id number] Admission: 02/20/21 Date of : 52 Discharge: Report #: [id number] Path Case #: [id number] Note [facility] Accession Number: [id number] TESTS RESULT FLAG UNITS REF RANGE LAB Clinician Provided Cytology Information No. of containers..01 Other (Miscellaneous) Source: BRONCHIAL WASHING DIAGNOSIS: 02 BRONCHIAL WASHING NEGATIVE FOR MALIGNANT CELLS. NORMAL BRONCHIAL CELLS AND HISTIOCYTES ARE PRESENT. Signed out by: 02 Stacey Muñoz MD, Pathologist NPI- [id number] Performed by: Georgiana Crum Explosives Mixer Operator ([facility]) Gross description: 01 18ML, RED, CLOUDY /LCS 03/15/2021 1711 Local FLAG LEGEND: L-Low Normal,H-High Normal,LL-Alert Low,HH-Alert High <-Panic Low,>-Panic High,A-Abnormal,AA-Critical Abnormal Performed at: 01 [facility] [address] [place] [address] Darrian Bourgeois MD, [address] [address] Stacey Muñoz MD, Specimen Comment: A courtesy copy of this report has been sent to [phone] Specimen Comment: Report sent to Performed at: 01 [facility] [address], [place], [place] [id number] MD Darrian Bourgeois MD Phone: [phone]
--- NOTE | 2021-03-16 19:20 | NUR ---
TITRATE PRECEDEX OF FOR WILBER CARDIA. VERSED AND FENTALYN INFUSING
[2021-03-17 14:04] LABS: ABSOLUTE NEUTROPHILS 4.6 thou/uL (1.4-8.2); EOSINOPHILS 0.5 % (0.0-3.0); HEMATOCRIT 29.4 % (37.0-47.0); HEMOGLOBIN 9.4 gm/dL (12.0-15.0); LYMPHOCYTES 5.4 % (24.0-44.0); MCHC 31.9 g/dL (28.0-37.0); MCV 84.6 fL (80.0-100.0); MONOCYTES 5.1 % (1.0-8.0); PLATELET COUNT 130 thou/uL (150-400); RBC 3.47 mil/uL (4.20-5.00); RDW 16.8 % (10.5-14.5); WBC 5.2 thou/uL (4.0-11.0)
[2021-03-17 14:19] LABS: ALBUMIN 2.1 g/dL (3.4-5.0); CALCIUM 7.8 mg/dL (8.5-10.1); CREATININE 0.9 mg/dL (0.6-1.0); POTASSIUM 3.8 mmol/L (3.5-5.1); TOTAL BILIRUBIN 0.7 mg/dL (0.2-1.0); TOTAL PROTEIN 6.4 g/dL (6.4-8.2)
--- NOTE | 2021-03-17 16:41 | NUR ---
Attending physician spoke with lesli via phone call yesterday. Lesli wants everything done, cont treatment. palliative ARSON AND BOMB INVESTIGATOR following. Vent, nutritional support. Covid enhanced isolation. No anticipated dc over the weekend.
[2021-03-17 19:31] VITALS: BP 117/49
[2021-03-17 21:00] VITALS: BP 109/42
[2021-03-17 22:01] VITALS: BP 126/53
[2021-03-17 22:30] VITALS: BP 122/47
[2021-03-17 23:00] VITALS: BP 139/63
[2021-03-17 23:30] VITALS: BP 145/66
[2021-03-18] VITALS (24 sets, daily range): BP systolic 103–142; BP diastolic 37–76
--- NOTE | 2021-03-18 06:34 | NUR ---
Pt is progressing slowly towards plan of care as evidenced by slow but gradual sedation vacation. pt has +ve cough/gag reflex. pt moves face from side to side during oral care. pt is still on vent for o2 support.
[2021-03-18 09:29] LABS: ABSOLUTE NEUTROPHILS 4.2 thou/uL (1.4-8.2); BASOPHILS 0.1 % (0.0-2.0); HEMATOCRIT 27.2 % (37.0-47.0); HEMOGLOBIN 8.6 gm/dL (12.0-15.0); MCH 26.9 pg (26.0-34.0); MCHC 31.5 g/dL (28.0-37.0); MCV 85.4 fL (80.0-100.0); MONOCYTES 8.8 % (1.0-8.0); PLATELET COUNT 129 thou/uL (150-400); POLYS 84.1 % (36.0-66.0); RBC 3.18 mil/uL (4.20-5.00)
[2021-03-19] VITALS (7 sets, daily range): BP systolic 127–140; BP diastolic 48–67
[2021-03-19 05:38] LABS: CALCIUM 8.1 mg/dL (8.5-10.1); CREATININE 0.7 mg/dL (0.6-1.0); POTASSIUM 3.7 mmol/L (3.5-5.1)
--- NOTE | 2021-03-19 07:44 | NUR ---
pt remains dependent on vent for o2 support. pt has +ve cough/gag, turns head from side to side when oral care is provided. dressing change provided on bilateral lower extremeties.
--- NOTE | 2021-03-19 18:34 | NUR ---
assumed patient care at 0700. patient on /ac vent. suction as needs. vs stable. bp on soft side. tolerated tf. no residue noted. will keep monitor.
[2021-03-20] VITALS (21 sets, daily range): BP systolic 100–141; BP diastolic 45–74
[2021-03-20 04:59] LABS: HEMATOCRIT 29.1 % (37.0-47.0); HEMOGLOBIN 9.2 gm/dL (12.0-15.0); MCH 27.1 pg (26.0-34.0); MCHC 31.5 g/dL (28.0-37.0); MCV 86.3 fL (80.0-100.0); RBC 3.38 mil/uL (4.20-5.00); RDW 17.4 % (10.5-14.5); WBC 6.8 thou/uL (4.0-11.0)
[2021-03-20 05:20] LABS: CALCIUM 8.2 mg/dL (8.5-10.1); CREATININE 0.7 mg/dL (0.6-1.0); POTASSIUM 4.2 mmol/L (3.5-5.1)
--- NOTE | 2021-03-20 08:42 | NUR ---
ASSUME CARE 1900. PT/VITALS STABLE. NAP NOTED. POOR ROLERANCE TO ACTIVITY. NO DISTRESSNOTED THROUGH THE SHIFT. SA/PACs ON MONITOR, RATE CONTROLLED. POOR PROGRESS TOWARDS POC. NOTED TUBE FEEDING IN PATIENT'S MOUTH WITH ORAL CARE AND SUCTIONING DONE. INFORMED DR SOLIS AND STOPPED TUBEFEEDING FOR FOLLOW UP. PLAN IS TO CONTINUE TO MONITOR AND MANAGE ELECTROLYTES AND EDEMA. WILL CONTINUE TO FOLLOW WITH POC
--- NOTE | 2021-03-20 15:52 | NUR ---
Chart review. Vasu. vent, nutritional support. CPAP trial. Palliative PAPER MAKING MACHINE OPERATOR spoke with her daughter lesli. "do everything" per lesli. Will cont following as needed.
--- NOTE | 2021-03-20 21:27 | NUR ---
VSS THROUGHOUT SHIFT, TITRATED SEDATION GTTS (PRECEDEX, VERSED, FENTANYL) TO EFFECT RASS 0/-1. TURNED PATIENT Q2H, TOLERATED TURNS. FOOT DROP BOOTS ON, NO SCDS D/T LOWER EXT CELLULITIS TREATMENT. Q2H ORAL CARE, INLINE SUCTION IS ZIEGLER/WHT/BLOOD TINGED AND THICK/THIN. TF ON HOLD, PT NPO R/T POTENTIAL REVERSE PERISTALSIS & TF APPEARING ORAL SECRETIONS.
[2021-03-21] VITALS (36 sets, daily range): BP systolic 108–144; BP diastolic 40–75
--- NOTE | 2021-03-21 05:34 | NUR ---
RESTED QUIETLY THROUGHOUT SHIFT. MAINTAIN PRESIDEX GTT, FENTYNAL GTT AND VERSED GTT. REPOSITIONED NEEDED. WOUNDCARE COMPLETED LAST PM. ON 100% FIO2 UNTIL 0400 AND RT TURNED BACK DOWN TO 40%. TOLERATING WELL WITH O2 SAT 93-94% at present time. OCCASIONALY WILL SQUEEZE HAND SLIGHTLY. CONTINUE TO ASSES CLOSELY.
[2021-03-21 07:03] LABS: CALCIUM 7.8 mg/dL (8.5-10.1); CREATININE 0.6 mg/dL (0.6-1.0); POTASSIUM 4.4 mmol/L (3.5-5.1)
[2021-03-21 09:37] LABS: ABSOLUTE NEUTROPHILS 5.9 thou/uL (1.4-8.2); BASOPHILS 0.2 % (0.0-2.0); EOSINOPHILS 0.3 % (0.0-3.0); HEMATOCRIT 28.7 % (37.0-47.0); HEMOGLOBIN 9.1 gm/dL (12.0-15.0); LYMPHOCYTES 7.2 % (24.0-44.0); MCH 27.3 pg (26.0-34.0); MCHC 31.7 g/dL (28.0-37.0); MONOCYTES 6.1 % (1.0-8.0); PLATELET COUNT 144 thou/uL (150-400); POLYS 86.2 % (36.0-66.0); RBC 3.33 mil/uL (4.20-5.00); RDW 17.2 % (10.5-14.5); WBC 6.8 thou/uL (4.0-11.0)
[2021-03-22] VITALS (81 sets, daily range): BP systolic 69–203; BP diastolic 16–112
[2021-03-22 05:09] LABS: ABSOLUTE NEUTROPHILS 5.2 thou/uL (1.4-8.2); EOSINOPHILS 0.8 % (0.0-3.0); HEMATOCRIT 27.5 % (37.0-47.0); HEMOGLOBIN 8.8 gm/dL (12.0-15.0); LYMPHOCYTES 8.8 % (24.0-44.0); MCHC 32.2 g/dL (28.0-37.0); MONOCYTES 6.7 % (1.0-8.0); PLATELET COUNT 158 thou/uL (150-400); POLYS 83.7 % (36.0-66.0); RBC 3.27 mil/uL (4.20-5.00); WBC 6.2 thou/uL (4.0-11.0)
[2021-03-22 05:15] LABS: CALCIUM 7.6 mg/dL (8.5-10.1); CREATININE 0.6 mg/dL (0.6-1.0); MAGNESIUM 1.9 mg/dL (1.8-2.4); POTASSIUM 4.1 mmol/L (3.5-5.1)
[2021-03-22 14:09] LABS: BE(vivo) 1.4 mmol/L (-2 to +3); HCO3 26.7 mmol/L (22.0-26.0); PCO2 45.2 mmHg (35.0-45.0); PO2 82.5 mmHg (80.0-100.0); pH 7.389 (7.360-7.450)
[2021-03-23] VITALS (78 sets, daily range): BP systolic 102–140; BP diastolic 41–79
[2021-03-23 06:18] LABS: HEMATOCRIT 28.5 % (37.0-47.0); HEMOGLOBIN 9.2 gm/dL (12.0-15.0); MCHC 32.4 g/dL (28.0-37.0); MCV 83.3 fL (80.0-100.0); RBC 3.42 mil/uL (4.20-5.00); RDW 17.2 % (10.5-14.5); WBC 8.3 thou/uL (4.0-11.0)
[2021-03-23 06:43] LABS: CALCIUM 7.5 mg/dL (8.5-10.1); CREATININE 0.7 mg/dL (0.6-1.0); POTASSIUM 4.2 mmol/L (3.5-5.1)
[2021-03-24] VITALS (80 sets, daily range): BP systolic 95–155; BP diastolic 40–103
[2021-03-24 08:00] LABS: HEMATOCRIT 24.8 % (37.0-47.0); HEMOGLOBIN 8.1 gm/dL (12.0-15.0); MCH 27.4 pg (26.0-34.0); MCHC 32.6 g/dL (28.0-37.0); MCV 84.1 fL (80.0-100.0); RBC 2.94 mil/uL (4.20-5.00); RDW 17.1 % (10.5-14.5); WBC 4.5 thou/uL (4.0-11.0)
[2021-03-24 08:32] LABS: CALCIUM 7.6 mg/dL (8.5-10.1); CREATININE 0.6 mg/dL (0.6-1.0); MAGNESIUM 2.1 mg/dL (1.8-2.4); POTASSIUM 3.9 mmol/L (3.5-5.1)
--- NOTE | 2021-03-24 17:14 | NUR ---
Case discussed in ICU rounds. Pt remains on the vent at 50%. Pulm/the attending attempting to reach dtr Es to discuss goals of care and if she wishes continued agg tx, trach /peg will likely be needed. Sx consult. Covid ISO to be dc'd 2/ so hopefully dtr can visit. Dc timeframe and needs are uncertain. Will follow.
[2021-03-25] VITALS (73 sets, daily range): BP systolic 95–152; BP diastolic 35–86
[2021-03-25 06:44] LABS: CALCIUM 7.9 mg/dL (8.5-10.1); CREATININE 0.5 mg/dL (0.6-1.0); POTASSIUM 4.4 mmol/L (3.5-5.1)
[2021-03-25 08:44] LABS: HEMOGLOBIN 8.3 gm/dL (12.0-15.0); MCH 26.9 pg (26.0-34.0); MCHC 31.9 g/dL (28.0-37.0); MCV 84.4 fL (80.0-100.0); RBC 3.08 mil/uL (4.20-5.00); RDW 17.2 % (10.5-14.5); WBC 4.6 thou/uL (4.0-11.0)
[2021-03-26] VITALS (23 sets, daily range): BP systolic 92–165; BP diastolic 34–97
[2021-03-26 05:12] LABS: CALCIUM 7.8 mg/dL (8.5-10.1); CREATININE 0.5 mg/dL (0.6-1.0); POTASSIUM 4.2 mmol/L (3.5-5.1)
[2021-03-26 05:17] LABS: BASOPHILS 0.2 % (0.0-2.0); EOSINOPHILS 1.2 % (0.0-3.0); HEMATOCRIT 27.7 % (37.0-47.0); HEMOGLOBIN 8.9 gm/dL (12.0-15.0); LYMPHOCYTES 8.3 % (24.0-44.0); MCHC 32.2 g/dL (28.0-37.0); MCV 83.8 fL (80.0-100.0); MONOCYTES 6.8 % (1.0-8.0); PLATELET COUNT 227 thou/uL (150-400); POLYS 83.5 % (36.0-66.0); RBC 3.31 mil/uL (4.20-5.00); RDW 17.7 % (10.5-14.5); WBC 5.9 thou/uL (4.0-11.0)
[2021-03-27] VITALS (48 sets, daily range): BP systolic 79–182; BP diastolic 33–121
[2021-03-27 04:51] LABS: CALCIUM 8.3 mg/dL (8.5-10.1); CREATININE 0.5 mg/dL (0.6-1.0); POTASSIUM 4.1 mmol/L (3.5-5.1)
[2021-03-27 05:01] LABS: HEMATOCRIT 29.5 % (37.0-47.0); HEMOGLOBIN 9.6 gm/dL (12.0-15.0); MCH 27.4 pg (26.0-34.0); MCHC 32.7 g/dL (28.0-37.0); MCV 83.7 fL (80.0-100.0); RBC 3.53 mil/uL (4.20-5.00); RDW 17.7 % (10.5-14.5); WBC 5.6 thou/uL (4.0-11.0)
--- NOTE | 2021-03-27 08:17 | EKG ---
[address] [place] [address] ELECTROCARDIOGRAM REPORT Name: ELTON PAGAN Room #: 246- ADM IN M.R.#: [id number] Admission: 02/20/21 Attend Phys: Zhang Fitzpatrick MD Discharge: Date of : 52 Report #: [id number] [facility] Test Date: 2021-03-26 Test Time: 01:10:55 Pat Name: ELTON PAGAN Department: Room: [facility] Gender: F Software Project Lead: : 1950 Requested By: Estephania Senior Order Number: [id number] MD: Brian Stark Measurements Intervals [place] Rate: 71 P: NC: QRS: 41 QRSD: 85 T: 7 QT: 448 QTc: 487 Interpretive Statements Atrial fibrillation with occasional sinus beat Low voltage, extremity leads Compared to ECG 03/14/2021 10:18:28 Sinus rhythm no longer present Electronically Signed On 03-27-2021 8:17:33 ENTRY LEVEL PARALEGAL by Brian Stark [email or web address] <ELECTRONICALLY SIGNED> By: Brian Stark MD, [facility] 03/27/21 0817 9 011 Brian Stark MD, [facility]ACC /EPI
--- NOTE | 2021-03-27 12:56 | EKG ---
[address] [employer] [place] [address] ELECTROCARDIOGRAM REPORT Name: ELTON PAGAN Room #: 246- ADM IN M.R.#: [id number] Admission: 02/20/21 Attend Phys: Zhang Fitzpatrick MD Discharge: Date of : 52 Report #: [id number] [facility] Test Date: 2021-03-26 Test Time: 01:12:07 Pat Name: ELTON PAGAN Department: Room: 246 Gender: F Press Helper: : 1950 Requested By: Estephania Senior Order Number: [id number] MD: Jeffrey Keith Measurements Intervals [place] Rate: 72 P: 0 OR: 55 QRS: 43 QRSD: 84 T: 6 QT: 442 QTc: 484 Interpretive Statements AFIB Low voltage, extremity leads Compared to ECG 03/26/2021 01:10:55 Atrial premature complex(es) now present Electronically Signed On 03-27-2021 12:56:28 WATER PUMPER by Jeffrey Keith [email or web address] <ELECTRONICALLY SIGNED> By: Jeffrey Keith MD, [facility] 03/27/21 1256 0112 011 Jeffrey Keith MD, [facility]ACC /EPI
[2021-03-27 13:38] LABS: BE(vivo) 5.9 mmol/L (-2 to +3); HCO3 31.2 mmol/L (22.0-26.0); PCO2 48.5 mmHg (35.0-45.0); PO2 60.7 mmHg (80.0-100.0); pH 7.426 (7.360-7.450); sO2 91.6 % (92.0-98.0)
--- NOTE | 2021-03-27 20:21 | NUR ---
SEE Storm Player FOR ASSESSMENT. VERSED TURNED OFF, FENTANYL REDUCED FOR CPAP TRIAL. TUBE FEEDING ON HOLD DURIN TRIAL. BACK ON VENT AFTER 3 HOURS-PT RESP LABORED AFTER AWHILE. WILL AWAKEN TO VOICE-REACH OUT TO GRAP YOUR HAND. CONT PLAN OF CARE
--- NOTE | 2021-03-27 20:25 | NUR ---
HR BECOMES BRADYCARDIC 50'S WITH LOW BP ON PRECEDEX-DOES NOT TOLERATE EVEN ON THE LOW DOSE OF 0.02. HEMODYNAMICS NORMALIZE AFTER PRECEDEX DC'D. CONT PLAN OF CARE
[2021-03-28] VITALS (24 sets, daily range): BP systolic 104–174; BP diastolic 47–99
[2021-03-28 12:13] LABS: BE(vivo) 3.7 mmol/L (-2 to +3); HCO3 27.6 mmol/L (22.0-26.0); PO2 73.1 mmHg (80.0-100.0); pH 7.467 (7.360-7.450); sO2 95.5 % (92.0-98.0)
--- NOTE | 2021-03-28 15:17 | NUR ---
SW reviewed chart and spoke with nursing and attending physician. Pt remains in ICU. Enhanced Isolation precautions were discontinued on 03/26/2021. Pt is tolerating cpap trials. Pt is not following commands. Pt is off sedation. Surgery is following for possible trach/peg placement. Physicians to discuss plan of care with pt's dtrEs. SW is following and available to assist as needed.
[2021-03-29] VITALS (46 sets, daily range): BP systolic 90–199; BP diastolic 40–863
[2021-03-29 06:22] LABS: HEMATOCRIT 29.6 % (37.0-47.0); HEMOGLOBIN 9.6 gm/dL (12.0-15.0); MCH 27.3 pg (26.0-34.0); MCHC 32.5 g/dL (28.0-37.0); MCV 83.9 fL (80.0-100.0); RBC 3.53 mil/uL (4.20-5.00); RDW 18.2 % (10.5-14.5); WBC 7.3 thou/uL (4.0-11.0)
[2021-03-29 06:41] LABS: CALCIUM 8.4 mg/dL (8.5-10.1); CREATININE 0.5 mg/dL (0.6-1.0); POTASSIUM 4.2 mmol/L (3.5-5.1)
--- NOTE | 2021-03-29 19:34 | NUR ---
PT REMAINS ON AC VENT. PT DID FAIR ON SEDATION VACATION. PUT BACK ON PRECEDEX THIS EVENING. PT TOLERATES TUBE FEEDING. NO RESIDUALS. [facility]
[2021-03-30] VITALS (35 sets, daily range): BP systolic 110–156; BP diastolic 37–85
--- NOTE | 2021-03-30 16:03 | NUR ---
Case discussed in team rounds. COMPLIANCE ADMINISTRATOR calling dtr for consent to trach and peg. Pt is scheduled for the or tomorrow. Will follow and initiate LTAC referrals as appropriate.
--- NOTE | 2021-03-30 19:06 | NUR ---
PLAN FOR TRACH/PEG TOMORROW AM. TELEPHONE CONSENT GIVEN BY STACEY, CONFIRMED WITH 2 RNS. PATIENT HAD NO SIGNIFICANT EVENTS TODAY. STABLE ON MONITOR.
[2021-03-31] VITALS (49 sets, daily range): BP systolic 91–166; BP diastolic 41–75
[2021-03-31 05:17] LABS: BASOPHILS 0.4 % (0.0-2.0); EOSINOPHILS 1.1 % (0.0-3.0); HEMATOCRIT 27.8 % (37.0-47.0); MCH 27.4 pg (26.0-34.0); MCHC 32.6 g/dL (28.0-37.0); MCV 84.2 fL (80.0-100.0); MONOCYTES 6.2 % (1.0-8.0); PLATELET COUNT 248 thou/uL (150-400); POLYS 79.3 % (36.0-66.0); RDW 17.7 % (10.5-14.5)
[2021-03-31 05:46] LABS: APTT 24.7 Seconds (24.5-32.8); INR 1.07; PROTIME 11.6 Seconds (10.5-12.1)
[2021-03-31 05:56] LABS: CALCIUM 7.8 mg/dL (8.5-10.1); CREATININE 0.4 mg/dL (0.6-1.0); POTASSIUM 3.6 mmol/L (3.5-5.1)
[2021-03-31 09:14] LABS: BE(vivo) 7.2 mmol/L (-2 to +3); HCO3 30.5 mmol/L (22.0-26.0); PCO2 38.1 mmHg (35.0-45.0); PO2 69.2 mmHg (80.0-100.0); pH 7.521 (7.360-7.450); sO2 95.5 % (92.0-98.0)
[2021-04-01] VITALS (27 sets, daily range): BP systolic 89–152; BP diastolic 36–68
--- NOTE | 2021-04-01 11:18 | EKG ---
[address] [address] ELECTROCARDIOGRAM REPORT Name: ELTON PAGAN Room #: 246- ADM IN M.R.#: [id number] Admission: 02/20/21 Attend Phys: Zhang Fitzpatrick MD Discharge: Date of : 52 Report #: [id number] [facility] Test Date: 2021-03-31 Test Time: 15:35:46 Pat Name: ELTON PAGAN Department: Room: [facility] Gender: F Electrical Tech/Project Manager: BHARATHI : 1950 Requested By: Edmundo Medrano Order Number: [id number] MD: Brian Stark Measurements Intervals [place] Rate: 78 P: 39 SD: 124 QRS: 74 QRSD: 88 T: 32 QT: 406 QTc: 463 Interpretive Statements Sinus rhythm Atrial premature complexes Nonspecific T wave abnormality Compared to ECG 03/26/2021 01:12:07 Atrial fibrillation no longer present Electronically Signed On 04-01-2021 11:18:11 OPTOMETRIC TECH by Brian Stark [email or web address] <ELECTRONICALLY SIGNED> By: Brian Stark MD, [facility] 04/01/21 1118 [id number] 153 Brian Stark MD, FACC /EPI
[2021-04-02] VITALS (64 sets, daily range): BP systolic 63–215; BP diastolic 26–114
--- NOTE | 2021-04-02 05:52 | NUR ---
PT BECAME HYPOTENSIVE OVERNIGHT. VALVE TESTER CONTACTED AND BOLUS ORDER GIVEN. BP IMPROVED. LUCÍA ASH RN, SQUEAK RATTLE AND LEAK REPAIRER IS TIER 2 FOR RESTRAINT DOCUMENTATION. HER NAME IS NOT YET IN THE SYSTEM SO I WA INSTRUCTED TO LEAVE A NOTE SAYING THAT SHE IS AWARE OF THE SITUATION. WILL CONTINUE TO FOLLOW POC.
[2021-04-03] VITALS (36 sets, daily range): BP systolic 102–186; BP diastolic 39–100
--- NOTE | 2021-04-03 06:42 | NUR ---
pt has bilateral hearing loss and is completely blind. she does not purposely follow commands but squeezed rn's hand, and has +ve facial expression i.e raising eyebrows.
[2021-04-03 15:24] LABS: BASOPHILS 0.4 % (0.0-2.0); EOSINOPHILS 0.1 % (0.0-3.0); HEMATOCRIT 27.4 % (37.0-47.0); HEMOGLOBIN 8.7 gm/dL (12.0-15.0); LYMPHOCYTES 5.9 % (24.0-44.0); MCH 26.9 pg (26.0-34.0); MCHC 31.7 g/dL (28.0-37.0); MCV 84.9 fL (80.0-100.0); MONOCYTES 2.4 % (1.0-8.0); PLATELET COUNT 259 thou/uL (150-400); POLYS 91.2 % (36.0-66.0); RBC 3.23 mil/uL (4.20-5.00); RDW 18.3 % (10.5-14.5); WBC 5.5 thou/uL (4.0-11.0)
[2021-04-03 15:39] LABS: ALBUMIN 1.6 g/dL (3.4-5.0); CALCIUM 8.1 mg/dL (8.5-10.1); CREATININE 0.4 mg/dL (0.6-1.0); POTASSIUM 4.1 mmol/L (3.5-5.1); TOTAL BILIRUBIN 0.4 mg/dL (0.2-1.0); TOTAL PROTEIN 5.7 g/dL (6.4-8.2)
--- NOTE | 2021-04-03 16:55 | NUR ---
Case discussed in ICU rounds this morning. Trach and peg had to be rescheduled and is anticipated tomorrow. The attending to f/u with pt's dtr regarding next level of care, LTAC. Cm will initiate referrals once she has started her weaning trials.
[2021-04-04] VITALS (71 sets, daily range): BP systolic 102–172; BP diastolic 42–99
[2021-04-04 04:40] LABS: BE(vivo) 5.4 mmol/L (-2 to +3); HCO3 28.7 mmol/L (22.0-26.0); PCO2 37.1 mmHg (35.0-45.0); PO2 63.2 mmHg (80.0-100.0); pH 7.506 (7.360-7.450); sO2 94.1 % (92.0-98.0)
[2021-04-04 05:50] LABS: HEMATOCRIT 28.8 % (37.0-47.0); HEMOGLOBIN 9.3 gm/dL (12.0-15.0); MCH 27.1 pg (26.0-34.0); MCHC 32.3 g/dL (28.0-37.0); RBC 3.43 mil/uL (4.20-5.00); WBC 5.8 thou/uL (4.0-11.0)
[2021-04-04 05:52] LABS: CALCIUM 8.2 mg/dL (8.5-10.1); CREATININE 0.4 mg/dL (0.6-1.0); POTASSIUM 3.8 mmol/L (3.5-5.1)
[2021-04-04 12:57] LABS: HEMATOCRIT 27.4 % (37.0-47.0); HEMOGLOBIN 8.9 gm/dL (12.0-15.0); MCH 27.4 pg (26.0-34.0); MCHC 32.5 g/dL (28.0-37.0); MCV 84.5 fL (80.0-100.0); RBC 3.25 mil/uL (4.20-5.00); RDW 18.2 % (10.5-14.5); WBC 5.1 thou/uL (4.0-11.0)
[2021-04-04 13:07] LABS: CALCIUM 8.1 mg/dL (8.5-10.1); CREATININE 0.5 mg/dL (0.6-1.0); POTASSIUM 3.7 mmol/L (3.5-5.1)
--- NOTE | 2021-04-04 13:25 | NUR ---
Discussed during los with the attending physician and during unit rounds with the pulmonary MD. Patient out of the room for trach/peg procedure today. MD will need to talk with patient daughter Es about LTAC, daughter # [phone]. CM passed on information to the attending physician. CM will follow up as needed.
[2021-04-04 13:38] LABS: BE(vivo) 3.4 mmol/L (-2 to +3); HCO3 26.9 mmol/L (22.0-26.0); PCO2 36.4 mmHg (35.0-45.0); PO2 70.6 mmHg (80.0-100.0); pH 7.486 (7.360-7.450); sO2 95.4 % (92.0-98.0)
[2021-04-05] VITALS (74 sets, daily range): BP systolic 102–173; BP diastolic 52–122
[2021-04-05 05:23] LABS: HEMATOCRIT 30.2 % (37.0-47.0); HEMOGLOBIN 10.2 gm/dL (12.0-15.0); MCH 28.2 pg (26.0-34.0); MCHC 33.6 g/dL (28.0-37.0); RBC 3.6 mil/uL (4.20-5.00); RDW 18.3 % (10.5-14.5); WBC 6.5 thou/uL (4.0-11.0)
[2021-04-05 06:04] LABS: CALCIUM 7.9 mg/dL (8.5-10.1); CREATININE 0.4 mg/dL (0.6-1.0); POTASSIUM 3.5 mmol/L (3.5-5.1)
--- NOTE | 2021-04-05 14:00 | NUR ---
Case discussed with the care team. Pt had trach/peg placed yesterday. Dr. Medrano spoke with Es this morning to initiate LTAC discussion as next level of care for vent weaning. Message left for Es to call cm regarding the 3 local ltac options. Referral faxed and called to all three to see who can accept/bed availability. Pt has some acute medicare days left as well as snf days. She had a cpap trial this afternoon and they are weaning her off precedex. PT/OT/ST hines requested. Pt is blind and [place]. Will follow.
[2021-04-06] VITALS (39 sets, daily range): BP systolic 135–169; BP diastolic 49–86
--- NOTE | 2021-04-06 10:31 | NUR ---
0700-ASSUMED CARE OF PT.--VW 0800-JAMES BENÍTEZ IN.--VW 1015-PLACED ON CPAP.--VW 1030-NEW CAR SALESPERSON IN.--VW
--- NOTE | 2021-04-06 13:50 | NUR ---
[facility] can accept and will have a bed tomorrow. They have spoken with Es and she is in agreement. Care team updated. [facility] is still reviewing and [facility] is uncertain when they will have bed.
--- NOTE | 2021-04-06 20:54 | NUR ---
ASSUMED CARE OF PT AT 1400 FROM [facility]. I TOOK PIC OF RT BUTTOCK AND COCCYX WOUND AND PLACED IN CHART. I ALSO DEFLATED FMS BALLOON, ADVANCED IT UNTIL BLACK LINE IS AT RECTUM AND REINFLATED BALLOON WITH 40 ML OF WATER.
[2021-04-07] VITALS (17 sets, daily range): BP systolic 107–158; BP diastolic 49–99
[2021-04-07 05:23] LABS: HEMATOCRIT 28.2 % (37.0-47.0); HEMOGLOBIN 9.3 gm/dL (12.0-15.0); MCH 27.6 pg (26.0-34.0); MCHC 32.9 g/dL (28.0-37.0); MCV 83.9 fL (80.0-100.0); RBC 3.36 mil/uL (4.20-5.00); RDW 18.4 % (10.5-14.5); WBC 6.6 thou/uL (4.0-11.0)
[2021-04-07 05:33] LABS: CALCIUM 7.8 mg/dL (8.5-10.1); CREATININE 0.4 mg/dL (0.6-1.0); POTASSIUM 3.5 mmol/L (3.5-5.1)
--- NOTE | 2021-04-07 08:32 | NUR ---
UPON TAKING OVER PT CARE SHE IS IN A-FIB RVR UNCONTROLLED RATE RANGE 115-150. HOSPITALIST IS NOTIFIED WITH ORDERS TO START PRECEDEX FOR RESPIRATORY DISTRESS WHICH LIKELY IS THE UNDERLYING CAUSE FOR UNCONTROLLED A-FIB RVR. CARDIOLOGY WILL BE CONSULTED FOR THEIR EXPERT OPINION.
--- NOTE | 2021-04-07 09:08 | EKG ---
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 : 1950 Requested By: Edmundo Medrano Order Number: [id number] MD: Ramana Lancaster Measurements Intervals [place] Rate: 124 P: OK: QRS: 76 QRSD: 81 T: 36 QT: 345 QTc: 496 Interpretive Statements Atrial fibrillation Ventricular premature complex Low voltage, precordial leads Borderline prolonged QT interval Compared to ECG 03/31/2021 15:35:46 Ventricular premature complex(es) now present Low QRS voltage now present Sinus rhythm no longer present Atrial premature complex(es) no longer present T-wave abnormality no longer present Electronically Signed On 04-07-2021 9:07:48 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
--- NOTE | 2021-04-07 11:09 | NUR ---
Dc to [facility] on hold today as pt developed afib/rvr overnight. Cardiology saw her this morning. [facility] [place] updated. They are checking to see if they will have a bed on sat/sun this weekend if she is cleared for dc. Chart copy is ready and [facility] from is on the chart.
--- NOTE | 2021-04-07 12:56 | 2DMMODE ---
[facility] [address] [place] [address] 2 D/M-MODE ECHOCARDIOGRAM Name: SUNITA PAGANTTE Room #: 246-P ADM IN M.R.#: [id number] Admission: 02/20/21 Attend Phys: Zhang Fitzpatrick MD Discharge: Date of : 52 Report #: [id number] THIS REPORT FOR: cc: FAM - Family physician unknown FAM - Family physician unknown Slade Jarrett MD ~ ADDENDUM APPROVED REPORT Study performed: 04/07/2021 10:19:53 EXAM: Comprehensive 2D, Doppler, and color-flow Echocardiogram Patient Location: ICU Room #: 246 Status: routine BSA: 1.49 HR: 76 bpm BP: 156/99 mmHg Rhythm: Sinus arrhythmia/Frequent PVCs Other Information Study Quality: Good/trached Technically limited study due to arrhythmia, no patient participation. Indications Afib with RVR, Sepsis, recent COVID. ( Heart rate range from 60s-100bpm during exam ). Hx: COPD, DM, peg tube. 2D Dimensions RVDd: 34.21 mm IVSd: 8.19 (7-11mm) LVOT Diam: 16.72 (18-24mm) LVDd: 42.29 mm PWd: 7.98 (7-11mm) LVDs: 29.95 (25-40mm) Left Atrium: 43.16 (27-40mm) Aortic Root: 24.57 mm Volumes Left Atrial Volume (Systole) Single Plane 4CH: 48.41 mL Single Plane 2CH: 48.92 mL LA ESV Index: 35.00 mL/m2 Aortic Valve [facility] [address] [place] [address] 2 D/M-MODE ECHOCARDIOGRAM Name: ELTON PAGAN Room #: 246-P [facility] ..#: [id number] Admission: 02/20/21 Attend Phys: Zhang Fitzpatrick MD Discharge: Date of : 52 Report #: [id number] Peak Tom.: 1.35 m/s AO Peak Gr.: 7.30 mmHg LVOT Max P.94 mmHg LVOT Max V: 0.99 m/s RUIZ Vmax: 1.61 cm2 Mitral Valve E/A Ratio: 2.3 MV Decel. Time: 179.82 ms MV E Max Tom.: 1.23 m/s MV A Tom.: 0.53 m/s MV PHT: 52.15 ms IVRT: 76.12 ms Pulmonary Vein P Vein S: 0.36 m/s P Vein A: 0.23 m/s P Vein D: 0.70 m/s P Vein A Dur.: 79.6 msec P Vein S/D Ratio: 0.51 Tricuspid Valve TR Peak Tom.: 4.35 m/s RAP Estimate: 10.00 mmHg TR Peak Gr.: 76.00 mmHg PA Pressure: 86.00 mmHg Left Ventricle The left ventricle is normal size. There is normal LV segmental wall motion. There is normal left ventricular wall thickness. Left ventricular systolic function is normal. LVEF is 60%. Moderate diastolic dysfunction is present. Right Ventricle Right ventricle is dilated and hypokinetic. Atria Left atrium is mildly dilated. The right atrium size is normal. Aortic Valve Aortic valve is calcified but has adequate excursion. No aortic regurgitation is present. Mitral Valve Mitral valve leaflets are thickened. Moderate mitral annular calcification. Moderate mitral regurgitation. No evidence of mitral valve stenosis. Tricuspid Valve [facility] [address] [place] [address] 2 D/M-MODE ECHOCARDIOGRAM Name: PAGANSUNITAELTON Room #: 246-P ADM IN M.R.#: [id number] Admission: 02/20/21 Attend Phys: Zhang Fitzpatrick MD Discharge: Date of : 52 Report #: [id number] The tricuspid valve is normal in structure. Mild to moderate tricuspid regurgitation. Severe pulmonary hypertension (Estimated PAP is 85mmHg). Pulmonic Valve The pulmonary valve is normal in structure. Trace pulmonic regurgitation. Great Vessels The aortic root is normal in size. Ascending aorta is not well visualized. IVC is borderline dilated and collapses <50% with inspiration. Pericardium There is no pericardial effusion. Bilateral pleural effusion noted. <Conclusion> The left ventricle is normal size. There is normal left ventricular wall thickness. LVEF is 60%. Right ventricle is dilated and hypokinetic. Left atrium is mildly dilated. Aortic valve is calcified but has adequate excursion. Mitral valve leaflets are thickened. Moderate mitral annular calcification. Moderate mitral regurgitation. The tricuspid valve is normal in structure. Mild to moderate tricuspid regurgitation. Severe pulmonary hypertension (Estimated PAP is 85mmHg). The pulmonary valve is normal in structure. Trace pulmonic regurgitation. The aortic root is normal in size. There is no pericardial effusion. Bilateral pleural effusion noted. <ELECTRONICALLY SIGNED> By: Slade Jarrett MD 04/07/21 1255 1255 1255 Slade Jarrett MD /INF
--- NOTE | 2021-04-07 23:14 | NUR ---
Precedex gtt turned off at 2315, pt was getting bradycardic. low 50s. BP and other vitals stable.
[2021-04-08] VITALS (13 sets, daily range): BP systolic 127–160; BP diastolic 56–79
[2021-04-08 05:35] LABS: HEMATOCRIT 29.3 % (37.0-47.0); HEMOGLOBIN 9.4 gm/dL (12.0-15.0); MCH 27.1 pg (26.0-34.0); MCHC 32.1 g/dL (28.0-37.0); MCV 84.3 fL (80.0-100.0); RBC 3.48 mil/uL (4.20-5.00); RDW 18.6 % (10.5-14.5); WBC 6.1 thou/uL (4.0-11.0)
[2021-04-08 05:45] LABS: CALCIUM 8.5 mg/dL (8.5-10.1); CREATININE 0.5 mg/dL (0.6-1.0); POTASSIUM 3.4 mmol/L (3.5-5.1)
[2021-04-08] MEDS ORDERED: IPRAT-ALBUT 0.5-3 ML INH (11:18)
[2021-04-08] MEDS ORDERED: ALBUTEROL2.5 MG/0.5 INH (11:19)
[2021-04-08] MEDS ORDERED: HEPARIN SO5000 UNIT/ SUBQ (11:20)
[2021-04-08] MEDS ORDERED: LOPRESSOR50 PER TUBE (11:20)
[2021-04-08] MEDS ORDERED: NEURONTIN250 MG/5 M PER TUBE (11:21)
[2021-04-08] MEDS ORDERED: FUROSEMIDE20 MG/2 ML IV PUSH (11:22)
[2021-04-08] MEDS ORDERED: PULMICORT0.5 MG/21 INH (11:23)
[2021-04-08] MEDS ORDERED: PERIDEX 0.12%473 M1 MUCOUS MEM (11:23)
[2021-04-08] MEDS ORDERED: MIRALAX17 GM PER TUBE (11:24)
[2021-04-08] MEDS ORDERED: Protonix 40 MG VIAL IV PUSH (11:24)
[2021-04-08] MEDS ORDERED: DEXAMETHASO0.1 MG/M1 IV PUSH (11:24)
[2021-04-08] MEDS ORDERED: LANTUS SUBQ (11:25)
[2021-04-08] MEDS ORDERED: VITAMIN D325 MC2 PER TUBE (11:26)
--- NOTE | 2021-04-08 11:56 | NUR ---
PT DISCHARGING TODAY TO [facility] FAXED DC ORDERS/SUMMARY TO FACILITY RECEIVED CONFIRMATION. SET UP TRANSPORT BY AMBULANCE FOR [phone] TODAY. LEFT VM WITH PT'S FAMILY STACEY DONATO WITH MY NUMBER IF THEY WOULD HAVE ANY QUESTIONS. UNIT NOTIFIED AND CHART COPY PER US. NOTIFIED [facility] AT [place] OF TIME OF TRANSPORT. RN TO CALL REPORT OT [phone].
--- NOTE | 2021-04-08 13:09 | NUR ---
PT TRACH/VENT. AWAKE BUT NON VERBAL NOT ABLE TO FOLLOW COMMANDS. VSS, CHAIREZ AND FMS TO DD, PT DOSE NOT APPEAR TO BE IN ANY PAIN. PLANS TO DISCHARGE TO [place] TODAY. SPOKE WITH PT DAUGHTER STACEY TODAY TO UPDATE ON CARE AND DISCUSS DISCHARGE PLAN. WILL CONTINUE TO MONITOR.
== END 2021-04-08 13:18 | DRG 4 ==
LOC: ER 12:35 → ICU 23:30 → 4S 23:30 → EROBS 23:30 → ER 02-21 00:12 → EROBS 02-21 00:12 → 4S 02-21 16:41 → ICU 03-05 12:09
PROVIDERS: Anesthesiology; Hospitalist; Internal Medicine; Internal Medicine Nephrology; Internal Medicine Pulmonary Disease; Nurse Practitioner; Nurse Practitioner Family; Pediatrics; Specialist; Surgery; ADMIT Internal Medicine; ATTEND Internal Medicine
DX: A41.89 Other specified sepsis (principal); L89.213 Pressure ulcer of right hip, stage 3; E43 Unspecified severe protein-calorie malnutrition; N17.0 Acute kidney failure with tubular necrosis; J96.21 Acute and chronic respiratory failure with hypoxia; U07.1 COVID-19; J96.22 Acute and chronic respiratory failure with hypercapnia; G93.41 Metabolic encephalopathy; J69.0 Pneumonitis due to inhalation of food and vomit; L03.116 Cellulitis of left lower limb; N39.0 Urinary tract infection, site not specified; L03.115 Cellulitis of right lower limb; Z68.43 Body mass index [BMI] 50.0-59.9, adult; D61.818 Other pancytopenia; E87.0 Hyperosmolality and hypernatremia; I50.30 Unspecified diastolic (congestive) heart failure; I13.0 Hypertensive heart and chronic kidney disease with heart failure and stage 1 through stage 4 chronic kidney disease, or unspecified chronic kidney disease; J44.0 Chronic obstructive pulmonary disease with (acute) lower respiratory infection; J44.9 Chronic obstructive pulmonary disease, unspecified; Z88.8 Allergy status to other drugs, medicaments and biological substances; Z79.899 Other long term (current) drug therapy; D63.8 Anemia in other chronic diseases classified elsewhere; H54.8 Legal blindness, as defined in USA; I48.91 Unspecified atrial fibrillation; Z79.01 Long term (current) use of anticoagulants; Z86.718 Personal history of other venous thrombosis and embolism; B96.1 Klebsiella pneumoniae [K. pneumoniae] as the cause of diseases classified elsewhere; E11.65 Type 2 diabetes mellitus with hyperglycemia; Z79.4 Long term (current) use of insulin; F17.210 Nicotine dependence, cigarettes, uncomplicated; E66.01 Morbid (severe) obesity due to excess calories; E87.5 Hyperkalemia; E11.22 Type 2 diabetes mellitus with diabetic chronic kidney disease; N18.9 Chronic kidney disease, unspecified; I87.2 Venous insufficiency (chronic) (peripheral); E78.5 Hyperlipidemia, unspecified; K52.9 Noninfective gastroenteritis and colitis, unspecified; R41.0 Disorientation, unspecified
CPT/HCPCS: 10078; 10100; 27000; 32100; 50101; 50386; 50403; 56525; 59157; 62110; 62900; 65040; 85026